=== PATIENT | female | born 1960 | race Two or more races ===

== ENCOUNTER 2018-09-18 12:20 | Emergency (ER) | payer MEDICAID, SELFPAY ==
[2018-09-18 12:22] VITALS: BP 121/81; PULSE 106; PULSE 107; RESP 18; RESP 20; TEMP 36.6; O2SAT 96; O2SAT 97; BMI 46.4
--- NOTE | 2018-09-18 12:33 | RAD_ITS ---
STUDY: X-RAY - UNILATERAL RIBS ( RIGHT ) WITH CHEST REASON FOR EXAM: Female, 58 years old. Right-sided rib pain. History of recent fall. TECHNIQUE - RIBS: 3 view(s) of the ribs. TECHNIQUE - CHEST: Single PA view of the chest. COMPARISON: None. FINDINGS - RIBS: Healed fractures of the right fourth fifth and sixth ribs. FINDINGS - CHEST: EKG electrodes are seen. The lungs are clear and expanded. There is no demonstrated pleural abnormality. Normal size heart. Normal mediastinum and valerie. Normal visualized pulmonary arteries. Normal visualized aortic arch and descending thoracic aorta. Normal visualized thoracic spine. Normal visualized ribs, clavicles, and shoulders. There is no demonstrated abnormality of the visualized soft tissue structures of the upper abdomen. RAD/Ribs Uni Min 3V w/PA Chest IMPRESSION: RIBS: Healed right-sided fractures. No acute fracture is seen. CHEST: Normal x-ray examination of the chest. Electronically Signed: Jaime Suazo, at 14:05 EDT , Service support ,
--- NOTE | 2018-09-18 12:34 | ED.VIS.GEN ---
History of Present Illness Chief Complaint: Hyperglycemia Detail of Chief Complaint: High blood sugar and rib pain Informant: Patient Onset: Today Current Severity: Moderate Maximum Severity: Moderate Narrative: Patient presents with primary concern of elevated blood sugar. She is a brittle diabetic and states that she noted last night that she was out of insulin needles. She missed her insulin dose last evening and this morning. Yesterday morning her blood sugar was in the 140s. Today her meter was reading high. Patient also complains of right rib pain for the past several weeks. She has had bilateral lower extremity amputations. She states a few weeks ago her family members were trying to get her into her brother's truck. They were able to get her onto the floor board but not up onto the seat. As they were trying to move her she injured her right lateral ribs. She was not seen after that injury. Past Medical History - Allergies and Home Meds Allergies/Adverse Reactions: Allergies No Known Allergies Allergy (Verified 09/18/18 12:21) Primary Care Physician: Shaina Claire MD [Primary Care Provider] - Prior records reviewed: Yes Past Medical History: - - Reviewed Smoking Status: Former smoker Review of Systems General: Denies: Chills, Fever Eyes: Denies: Visual changes - bilaterally ENT: Denies: Bilateral ear pain Cardiovascular: Reports: Chest pain - Right lateral rib pain Respiratory: Denies: Dyspnea, Cough Gastrointestinal: Denies: Abdominal pain, Nausea, Vomiting Genitourinary: Reports: Dysuria Musculoskeletal: Denies: Back pain Neurological: Denies: Headache Endocrine: Reports: Polydipsia Hematologic: Denies: Easy bruising Allergy: Denies: Uticaria Physical Exam Vital Signs/Narrative: Vital Signs Temp Pulse Resp BP Pulse Ox 09/18/18 12:22 97.9 F 106 H 18 121/81 H 97 Inital Vital Signs reviewed: Yes General: Well nourished, Well developed Head: Normocephalic ENT: Moist mucous membranes Neck: Supple Cardiovascular: Regular rate, Regular rhythm Respiratory: No distress, CTA bilaterally, Chest tenderness - Right lateral rib tenderness. No crepitus. Abdomen: Soft, Nontender Extremities: - - Bilateral lower extremity amputations. Skin: Normal color Neurological: Alert, Oriented x3 Psychological: Normal affect Diagnostic/Tx/Re-eval Impressions Ribs w/Chest X-Ray 09/18/18 12:33 IMPRESSION: RIBS: Healed right-sided fractures. No acute fracture is seen. CHEST: Normal x-ray examination of the chest. Electronically Signed: Jaime Suazo, at 14:05 EDT , Service support , 09/18/18 12:33 Ribs Uni Min 3V w/PA Chest [RAD] Stat Laboratory Results 09/18/18 09/18/18 09/18/18 13:13 13:13 13:13 WBC 7.3 RBC 3.93 L Hgb 11.3 L Hct 36.2 L MCV 92.1 MCH 28.8 MCHC 31.2 L RDW Std Deviation 45.0 H RDW Coeff of Tiffanie 13.4 Plt Count 284 MPV 10.3 Immature Gran % (Auto) 0.500 Neut % (Auto) 68.4 Lymph % (Auto) 21.3 [place] % (Auto) 7.9 Eos % (Auto) 1.6 Baso % (Auto) 0.3 Absolute Neuts (auto) 5.0 Absolute Lymphs (auto) 1.56 Nucleated RBC % 0 Sodium 138 Potassium 4.4 Chloride 108 H Carbon Dioxide 24.0 Anion Gap 6 BUN 29 H Creatinine 1.11 H Estim Creat Clear Calc 48.90 Est GFR (MDRD) Af Amer 65 Est GFR (MDRD) Non-Af 54 L BUN/Creatinine Ratio 26.1 H Glucose 494 H* Calcium 8.7 Urine Color Urine Clarity Urine pH Ur Specific [place] Urine Protein Urine Glucose (UA) Urine Ketones Urine Occult Blood Urine Nitrite Urine Bilirubin Urine Urobilinogen Ur Leukocyte Esterase Urine RBC Urine WBC Ur Squamous Epith Cells Urine Bacteria Urine Mucus Acetone Level NEGATIVE 09/18/18 14:40 WBC RBC Hgb Hct MCV MCH MCHC RDW Std Deviation RDW Coeff of Tiffanie Plt Count MPV Immature Gran % (Auto) Neut % (Auto) Lymph % (Auto) Bradford % (Auto) Eos % (Auto) Baso % (Auto) Absolute Neuts (auto) Absolute Lymphs (auto) Nucleated RBC % Sodium Potassium Chloride Carbon Dioxide Anion Gap BUN Creatinine Estim Creat Clear Calc Est GFR (MDRD) Af Amer Est GFR (MDRD) Non-Af BUN/Creatinine Ratio Glucose Calcium Urine Color Yellow Urine Clarity Clear Urine pH 5.0 Ur Specific [place] 1.010 Urine Protein Negative Urine Glucose (UA) 1000 H Urine Ketones Negative Urine Occult Blood 10 H Urine Nitrite Positive H Urine Bilirubin Negative Urine Urobilinogen Normal Ur Leukocyte Esterase 25 H Urine RBC 0-5 SEEN Urine WBC 0-5 SEEN Ur Squamous Epith Cells 0 SEEN Urine Bacteria 3+ Urine Mucus 0 SEEN Acetone Level - Medical Decision Making Patient was treated with [place] for pain and given IV fluids. Insulin has been ordered for her hyperglycemia. Urine will be sent for culture and she will be treated with a 3-day course of Bactrim. Patient is given prescriptions for Bactrim, [place], and insulin needles. Social work is assisting in getting his prescriptions filled here at the hospital before she is discharged. Patient is to follow-up with her primary care physician next week. ED Disposition - Plan for ED Patient: Disposition: Home or Assisted Living Diagnosis: Hyperglycemia, Contusion of rib on right side, Cystitis Instructions: ED Diabetic Hyperglycemia, Urinary Tract Infections in Women, Rib Contusion Prescriptions: Smz/Tmp Ds [Bactrim Ds] 1 tab PO BID #6 tab Prescription Printed Hydrocodone Bitart/Apap 5-325 [[place] 5MG-325MG] 1 tab PO Q6H PRN PRN 3 Days #10 tab PRN Reason: Pain Prescription Printed [place], Insulin Disposable [Novofine Autocover 30G Needle] 1 ea MISCELL. UD #1 box Prescription Printed Referrals: Shaina Claire MD [Primary Care Provider] - 1-2 Weeks
[2018-09-18] MEDS: HYDROcodone Bitartrate/Apap 5/325 Tablet PO (13:21)
[2018-09-18] MEDS: 0.9% Normal Saline 1,000 ML 150 ML IV (13:23)
[2018-09-18 13:29] LABS: Absolute Lymphocyte Count 1.56 X10^3/uL (0.83-4.51); Basophil# 0.02 X10^3/uL; Basophil% 0.3 % (0-1); Eosinophil# 0.12 X10^3/uL; Eosinophils% 1.6 % (0-5); Hematocrit 36.2 % (37-47); Hemoglobin 11.3 g/dL (12.0-15.0); Lymphocyte # 1.56 X10^3/ul (4.0); Lymphocyte % 21.3 % (19-41); Mean Corp Hgb Conc 31.2 g/dL (32-36); Mean Corpuscular Hgb 28.8 pg (27.0-32.0); Mean Corpuscular Volume 92.1 fL (81-99); Mean Platelet Vol. 10.3 fl (6.2-12.0); Monocyte# 0.58 X10^3/uL; Monocyte% 7.9 % (0-10); NRBC Flagged by Analyzer 0 % (0-5); Neutrophil % 68.4 % (47-70); Platelet Count 284 K/mm3 (150-450); RBC Distribution Width CV 13.4 % (11.6-14.6); Red Blood Count 3.93 M/mm3 (4.2-5.4); White Blood Count 7.3 K/mm3 (4.4-11.0)
[2018-09-18 13:38] LABS: Anion Gap 6 (5-15); BUN 29 mg/dL (7-18); BUN/Creat Ratio 26.1 RATIO (10-20); Calcium,Total 8.7 mg/dL (8.5-10.1); Chloride 108 mmol/L (98-107); Creatinine, Serum 1.11 mg/dL (0.55-1.02); EST Glomerular Filtration Rate 54 mL/min (>60); Est Glom Filt Rate - Afr Amer 65 mL/min (>60); Glucose 494 mg/dL (74-106); Potassium 4.4 mmol/L (3.5-5.1); Sodium Level 138 mmol/L (136-145)
[2018-09-18 14:43] LABS: Mucous, Urine 0 SEEN /hpf (<or=2+); Squamous Epithelial Cells - UA 0 SEEN /hpf (5-10)
[2018-09-18 14:44] LABS: Color, Urine Yellow (Yellow); Glucose, Dipstick 1000 mg/dl (Normal); Ketone-Dipstick Negative (Negative); Leukocyte Esterase-Dipstick 25 /ul (Negative); Nitrite-Dipstick Positive (Negative); Occult Blood-Urine 10 /ul (Negative); Protein-Dipstick Negative (Negative); Urine Bilirubin Dipstick Negative (Negative); Urine Clarity Clear (Clear); Urine Urobilinogen Normal (Normal)
[2018-09-18 14:55] LABS: Bacteria 3+ /hpf (None Seen); Red Blood Cells-Urine 0-5 SEEN /hpf (0-5); White Blood Cells 0-5 SEEN /hpf (0-5)
--- NOTE | 2018-09-18 15:27 | CM.ED ---
SOCIAL WORK INFORMANT: DR. JOVEL REASON FOR REFERRAL: ASSISTANCE WITH PRESCRIPTIONS MET WITH PATIENT IN ROOM. INTRODUCED ROLE AND REASON FOR REFERRAL. PATIENT STATES HAS BEEN HAVING ISSUES WITH TRANSPORTATION AND GETTING TO PHARMACY TO GET PRESCRIPTIONS. DISCUSSED GETTING PRESCRIPTIONS FILLED HERE PRIOR TO D/C. PATIENT IN AGREEMENT. PATIENT DENIES ANY FURTHER NEEDS. CALLED TO PHARMACY TO UPDATE. NURSING TO TUBE PRESCRIPTIONS TO PHARMACY. DR. JOVEL UPDATED. AMY ORO, [employer]YOR LOADER, BODY BUILDER.
[2018-09-18] MEDS: Insulin Lispro 100 UNIT/ML INSULN.PEN 12 UNIT SC (15:28)
[2018-09-18] MEDS: Smz/Tmp Ds Tablet 1 TABLET PO (15:28)
[2018-09-18 15:30] VITALS: BP 123/57; PULSE 96; RESP 14; O2SAT 96
[2018-09-18 15:41] LABS: Bedside Glucose 410 mg/dL (70-110)
[2018-09-18 16:51] LABS: Bedside Glucose 297 mg/dL (70-110)
== END 2018-09-18 17:09 | disposition home or self-care (01) ==
PROVIDERS: Emergency Provider Emergency Medicine; Family Provider Family Medicine; PCP Family Medicine
DX: R73.9 Hyperglycemia, unspecified (principal); E11.65 Type 2 diabetes mellitus with hyperglycemia; N30.90 Cystitis, unspecified without hematuria; S20.211A Contusion of right front wall of thorax, initial encounter; X58.XXXA Exposure to other specified factors, initial encounter; Y93.9 Activity, unspecified; Y92.812 Truck as the place of occurrence of the external cause; Y99.9 Unspecified external cause status; Z79.4 Long term (current) use of insulin; Z89.512 Acquired absence of left leg below knee; Z89.511 Acquired absence of right leg below knee; Z87.891 Personal history of nicotine dependence
CPT/HCPCS: 71101; 80048; 81001; 82009; 82962; 85025; 87077; 87086; 87088; 87186; 96360; 96361; 99285; J7030; A4216

== ENCOUNTER 2021-09-05 17:31 | Emergency (ER) | payer MEDICAID, SELFPAY ==
[2021-09-05 17:33] VITALS: BP 125/59; PULSE 82; RESP 14; TEMP 36.6; O2SAT 98; BMI 52.5
--- NOTE | 2021-09-05 17:57 | EDS_ITS ---
HPI History of Present Illness Chief Complaint: Other, Pain/Inj Informant: patient Narrative Narrative: 61-year-old female presenting to the emergency department with right stump pain. Patient has had AKA bilaterally. She states that she recently moved from [facility] her time to [place]. She states that the nurse practitioner that is now taking care of her has declined to prescribe her pain medication stating that she needs to go to pain management. Patient states that she has heard the pain management most likely will give her pain medicine. She states that she transfers by spinning on her stump. She wonders if she pulled the muscle away from the bone because it hurts from the end of the stump up into her hip. She denies any bleeding or bruising or leakage of fluid. She states that her caregivers are stupid. [facility] Medical History Amputation leg, bilat Diabetes High cholesterol HTN (hypertension) PVD (peripheral vascular disease) Home Medications amitriptyline 50 mg tablet 50 mg PO QHS 06/12/16 [History Last Taken Unknown] baclofen 10 mg tablet 10 mg PO DAILY 06/12/16 [History Last Taken Unknown] clopidogrel 75 mg tablet 75 mg PO DAILY 06/12/16 [History Last Taken Unknown] fluticasone propionate 50 mcg/actuation nasal spray,suspension 2 spray DAILY 06/12/16 [History Last Taken Unknown] lidocaine 5 % topical ointment 1 applicatio topical DAILY PRN PRN Pain 06/12/16 [History Last Taken Unknown] metoprolol tartrate 25 mg tablet 25 mg PO BID 06/12/16 [History Last Taken Unknown] omeprazole 20 mg capsule,delayed release 20 mg PO DAILY 06/12/16 [History Last Taken Unknown] polyethylene glycol 8000(bulk) 100 % powder 255 g miscellaneous BID PRN PRN Cons tipation 06/12/16 [History Last Taken Unknown] zolpidem 5 mg tablet 5 mg PO QHS PRN PRN Insomnia 06/12/16 [History Last Taken Unknown] aspirin 81 mg chewable tablet 81 mg PO DAILY@0800 06/14/16 [Rx Last Taken Unknown] atorvastatin 40 mg tablet 40 mg PO QHS ##30 06/14/16 [Rx Last Taken Unknown] insulin aspart U-100 100 unit/mL (3 mL) subcutaneous pen (Novolog Flexpen U-100 Insulin aspart) 10 units (0.1 mL) subcut TIDAC 30 days 06/14/16 [Rx Last Taken Unknown] insulin detemir U-100 100 unit/mL (3 mL) subcutaneous pen (Levemir FlexTouch U- 100 Insulin) 50 units (0.5 mL) subcut BID 30 days 06/14/16 [Rx Last Taken Unknown] lisinopril 5 mg tablet 5 mg PO DAILY ##30 06/14/16 [Rx Last Taken Unknown] pen needle, diabetic, safety 30 gauge x 1/3 ##1 09/18/18 [Rx Last Taken Unknown] sulfamethoxazole 800 mg-trimethoprim 160 mg tablet 1 tab PO BID #6 tabs 09/18/18 [Rx Last Taken Unknown] hydrocodone-acetaminophen 5-325mg 5mg-325mg 1 tab PO Q6H PRN PRN Pain 3 days #12 TABLETS 09/05/21 [Rx Last Taken Unknown] Allergy/AdvReac Type Severity Reaction Status Date / Time No Known Allergies Allergy Verified 09/05/21 17:36 Social History (Updated 09/05/21 @ 17:[address] Roman Lozano, DO) Smoking Status: Former smoker substance use type: does not use ROS ROS ED Constitutional Constitutional ED: Denies chills or weight loss Eyes Eyes: Denies change in vision or diplopia ENT ENT ED: Denies ear pain, rhinorrhea or sore throat Cardiovascular Cardiovascular: Denies chest pain, orthopnea, palpitations or racing heartbeat Respiratory/Chest Respiratory/Chest: Denies cough, dyspnea or orthopnea Gastrointestinal Gastrointestinal: Denies abdominal pain, diarrhea, nausea or vomiting Genitourinary Genitourinary ED: Denies dysuria, hematuria or urinary frequency Musculoskeletal Musculoskeletal: Reports other Details: See history of present illness ; Denies arthralgias or myalgias Integumentary Denies abscess or rash Neurologic Neurologic: Denies headache(s) or weakness Psychiatric Psychiatric: Denies anxiety, depression, suicidal ideation or suicidal thoughts Endocrine Endocrinology: Denies polydipsia, polyphagia or polyuria Allergic/Immunologic Allergic/Immunologic ED: Denies mouth swelling, tongue swelling or urticaria EXAM Physical Exam Const Vital Signs: 09/05/21 17:33 09/05/21 17:36 Temperature 98 F Temperature Source Temporal Pulse Rate 82 Respiratory Rate 14 Respiratory Pattern Normal Blood Pressure 125/59 H Blood Pressure Mean 81 Pulse Ox 98 Oxygen Delivery Method Room Air Positive well nourished and well developed General Appearance ED: well developed HEENT Reports normocephalic, head/scalp atraumatic and moist mucous membranes Eyes PERRL and EOMs intact bilaterally Neck no lymphadenopathy, supple and no JVD Resp normal respiratory effort and clear to auscultation bilaterally Cardio regular rate, regular rhythm and no murmurs GI normal to inspection, nondistended, normoactive bowel sounds and non-tender Palpation: soft Back/Spine no CVA tenderness and normal ROM Extremity Extremity Narrative: Well-healed surgical scars. There is no erythema there is no significant bruising. She is able to move the stump. There is no tenderness over the greater trochanter. General Extremety ED: Negative for edema General Extremity: Negative for edema Neuro oriented x3 and CN's II-XII intact bilaterally Sensorium / Orientation: alert Motor Exam: strength 5/5 throughout Psych mental status grossly normal Mood & Affect: Negative for depressed or tearful Skin no rashes or lesions noted and no wounds MDM MDM MDM Narrative Medical decision making narrative: My interpretation of the plain films of the right hip is no acute process. Think the patient has a strain and possibly injured the soft tissues of the stump while pivoting. I can write for short course of pain medication but any prolonged narcotic or pain medication use will need to come from her doctors or from pain management. Patient notes understanding of this. We talked about trying not to pivot on this using ice and just resting return if worsening or concerns Discharge Plan Triage Chief Complaint: Other, Pain/Inj ED Provider: Roman Lozano Dx/Rx/DC Orders Clinical Impression: Amputation stump pain, Right leg swelling Instructions: ED Muscle Strain, Extremity Prescriptions: New hydrocodone-acetaminophen [hydrocodone-acetaminophen] 1 TABLET tablet 1 tab PO Q6H PRN PRN (Reason: Pain) 3 Days Qty: 12 0RF No Action clopidogrel 75 MG tablet 75 mg PO DAILY amitriptyline 50 MG tablet 50 mg PO QHS baclofen 10 MG tablet 10 mg PO DAILY omeprazole 20 MG capsule 20 mg PO DAILY zolpidem 5 MG tablet 5 mg PO QHS PRN PRN (Reason: Insomnia) fluticasone propionate 1 SPRAY spray,suspension 2 spray NASAL DAILY metoprolol tartrate 25 MG tablet 25 mg PO BID polyethylene glycol 8000(bulk) 500 GM powder 255 g miscellaneous BID PRN PRN (Reason: Constipation) lidocaine 35 GM ointment 1 applicatio topical DAILY PRN PRN (Reason: Pain) atorvastatin 40 MG tablet 40 mg PO QHS Qty: 30 0RF aspirin 81 MG tablet,chewable 81 mg PO DAILY@0800 0RF lisinopril 5 MG tablet 5 mg PO DAILY Qty: 30 0RF insulin aspart U-100 [Novolog Flexpen U-100 Insulin] 100 UNITS/ML insulin pen 10 units subcut TIDAC 30 Days 0RF insulin detemir U-100 [Levemir FlexTouch U-100 Insuln] 100 UNITS/ML insulin pen 50 units subcut BID 30 Days 0RF (DME) pen needle, diabetic, safety 1 EACH needle 1 ea MISCELL. UD Qty: 1 0RF sulfamethoxazole-trimethoprim 1 TABLET tablet 1 tab PO BID Qty: 6 0RF Primary Care Provider: Care Physician,No Primary Referrals: Shaina Claire MD [NON-STAFF] - Disposition Disposition: Home, Self Care
[2021-09-05] MEDS: Ketorolac 30 MG/ML Syringe IM (18:04)
--- NOTE | 2021-09-05 18:10 | RAD_ITS ---
STUDY: X-RAY - PELVIS AND RIGHT HIP REASON FOR EXAM: Female, 61 years old. pain TECHNIQUE: 3 views of the pelvis and hip. COMPARISON: None. FINDINGS: There is a non-specific bowel gas pattern. Surgical clips are seen in the soft tissues of the right hip. Normal bilateral iliac wings, sacroiliac joints and visualized sacrum. Normal bilateral superior and inferior pubic rami. Normal pubic symphysis. Normal bilateral ischial tuberosities. Normal visualized femoral head. Normal acetabulum. Normal hip joint. Postop change status post amputation of the right thigh through the mid femoral shaft . There is soft tissue swelling of the stump but no definitive evidence for acute osteomyelitis RAD/HIP, UNI W/ Pelvis 2-3 Views IMPRESSION: Soft tissue swelling of the operative site status post post amputation of the right thigh through the mid femoral shaft without definitive evidence for acute osteomyelitis Electronically Signed: Pedro Hernandez MD at 19:11 EDT ,
--- NOTE | 2021-09-05 19:12 | ED.RN ---
2 attempts to call report [phone]
[2021-09-05 19:15] VITALS: BP 138/66; PULSE 78; RESP 16; O2SAT 98
--- NOTE | 2021-09-05 19:59 | CM.ED ---
BROOKE met with patient. She indicated her PCP is the [facility] at [facility] but she does not know her name. Aisha Sewell
== END 2021-09-05 21:09 | disposition home or self-care (01) ==
PROVIDERS: Emergency Provider Emergency Medicine; Visit Provider Emergency Medicine
DX: T87.89 Other complications of amputation stump (principal); E11.9 Type 2 diabetes mellitus without complications; Y83.5 Amputation of limb(s) as the cause of abnormal reaction of the patient, or of later complication, without mention of misadventure at the time of the procedure; I10 Essential (primary) hypertension; E78.00 Pure hypercholesterolemia, unspecified; M79.89 Other specified soft tissue disorders; Z79.02 Long term (current) use of antithrombotics/antiplatelets; Z79.4 Long term (current) use of insulin; Z79.82 Long term (current) use of aspirin; Z87.891 Personal history of nicotine dependence; Z89.611 Acquired absence of right leg above knee; Z89.612 Acquired absence of left leg above knee
CPT/HCPCS: 73502; 96372; 99284

== ENCOUNTER 2021-09-11 14:26 | Emergency (ER) | payer MEDICAID, SELFPAY ==
[2021-09-11 14:28] VITALS: BP 138/71; PULSE 85; RESP 16; TEMP 37.3; O2SAT 98; BMI 21.2
--- NOTE | 2021-09-11 14:39 | RAD_ITS ---
STUDY: X-RAY - UNILATERAL RIBS ( RIGHT ) WITH CHEST REASON FOR EXAM: Female, 61 years old. pain TECHNIQUE - RIBS: 4 view(s) of the ribs. TECHNIQUE - CHEST: AP COMPARISON: None. FINDINGS - RIBS: There appear to be multiple old right rib fractures. No evidence for acute fracture this time. FINDINGS - CHEST: The lungs are clear and expanded. There is no demonstrated pleural abnormality. Normal size heart. Normal mediastinum and valerie. Normal visualized pulmonary arteries. Normal visualized aortic arch and descending thoracic aorta. Normal visualized thoracic spine. Normal visualized clavicles, and shoulders. There is no demonstrated abnormality of the visualized soft tissue structures of the upper abdomen. RAD/Ribs Uni Min 3V w/PA Chest IMPRESSION: RIBS: Multiple old rib fractures without evidence for acute fracture CHEST: No acute cardiopulmonary pathology Electronically Signed: Pedro Hernandez MD at 17:02 EDT ,
--- NOTE | 2021-09-11 14:39 | RAD_ITS ---
STUDY: X-RAY - RIGHT SHOULDER REASON FOR EXAM: Female, 61 years old. pain TECHNIQUE: 4 view(s) of the shoulder. COMPARISON: None. FINDINGS: Normal glenohumeral articulation. Normal acromioclavicular joint. Normal acromion. Normal humeral head and visualized proximal humerus. The soft tissue structures are unremarkable. Normal visualized pulmonary apex. RAD/Shoulder min 2 Views IMPRESSION: Normal x-ray examination of the shoulder. Electronically Signed: Abdelrahman Doan MD at 17:08 EDT ,
[2021-09-11] MEDS: oxyCODONE 5 MG Tablet PO (14:48)
--- NOTE | 2021-09-11 14:52 | ED.VIS.FALL ---
HPI HPI - Fall History of Present Illness Chief Complaint: Fall Narrative Narrative: 61-year-old female with history of bilateral AKA presenting after a fall. She states it was purely mechanical. She states she has a new bed and when trying to pivot off of her wheelchair she was not able to put her stump down correctly into the corner and she fell into inside of the wheelchair she was pivoting from. She states she hurt her right shoulder her right ribs and her right hip. She did not hit her head or lose consciousness. She states that prior to that she was otherwise well. She states that they are trying to get a trapeze to help her get up in the bed but this has not been ordered for her yet. Patient also states that she has chronic pain which is not being addressed at her assisted living facility. She states she supposed to follow-up with pain management but they have not been able to get her to an appointment. [facility] Medical History Amputation leg, bilat Diabetes High cholesterol HTN (hypertension) PVD (peripheral vascular disease) Home Medications amitriptyline 50 mg tablet 50 mg PO QHS 06/12/16 [History Last Taken Unknown] baclofen 10 mg tablet 10 mg PO DAILY 06/12/16 [History Last Taken Unknown] clopidogrel 75 mg tablet 75 mg PO DAILY 06/12/16 [History Last Taken Unknown] fluticasone propionate 50 mcg/actuation nasal spray,suspension 2 spray DAILY 06/12/16 [History Last Taken Unknown] lidocaine 5 % topical ointment 1 applicatio topical DAILY PRN PRN Pain 06/12/16 [History Last Taken Unknown] metoprolol tartrate 25 mg tablet 25 mg PO BID 06/12/16 [History Last Taken Unknown] omeprazole 20 mg capsule,delayed release 20 mg PO DAILY 06/12/16 [History Last Taken Unknown] polyethylene glycol 8000(bulk) 100 % powder 255 g miscellaneous BID PRN PRN Constipation 06/12/16 [History Last Taken Unknown] zolpidem 5 mg tablet 5 mg PO QHS PRN PRN Insomnia 06/12/16 [History Last Taken Unknown] aspirin 81 mg chewable tablet 81 mg PO DAILY@0800 06/14/16 [Rx Last Taken Unknown] atorvastatin 40 mg tablet 40 mg PO QHS ##30 06/14/16 [Rx Last Taken Unknown] insulin aspart U-100 100 unit/mL (3 mL) subcutaneous pen (Novolog Flexpen U-100 Insulin aspart) 10 units (0.1 mL) subcut TIDAC 30 days 06/14/16 [Rx Last Taken Unknown] insulin detemir U-100 100 unit/mL (3 mL) subcutaneous pen (Levemir FlexTouch U-100 Insulin) 50 units (0.5 mL) subcut BID 30 days 06/14/16 [Rx Last Taken Unknown] lisinopril 5 mg tablet 5 mg PO DAILY ##30 06/14/16 [Rx Last Taken Unknown] pen needle, diabetic, safety 30 gauge x 1/3 ##1 09/18/18 [Rx Last Taken Unknown] sulfamethoxazole 800 mg-trimethoprim 160 mg tablet 1 tab PO BID #6 tabs 09/18/18 [Rx Last Taken Unknown] hydrocodone-acetaminophen 5-325mg 5mg-325mg 1 tab PO Q6H PRN PRN Pain 3 days #12 TABLETS 09/05/21 [Rx Last Taken Unknown] Allergy/AdvReac Type Severity Reaction Status Date / Time No Known Allergies Allergy Verified 09/11/21 14:27 Social History Smoking Status: Former smoker substance use type: does not use ROS ROS ED Constitutional Constitutional ED: Denies chills or fever(s) Eyes Eyes: Denies blurry vision or change in vision ENT ENT ED: Denies rhinorrhea or sore throat Cardiovascular Cardiovascular: Reports other Details: Right-sided rib pain ; Denies chest pain or palpitations Respiratory/Chest Respiratory/Chest: Denies cough or dyspnea Gastrointestinal Gastrointestinal: Denies abdominal pain or constipation Genitourinary Genitourinary ED: Denies dysuria or hematuria Musculoskeletal Musculoskeletal: Reports other Details: Right shoulder, right hip pain Integumentary Denies abscess or Abrasions Neurologic Neurologic: Denies headache(s) or paresthesias Psychiatric Psychiatric: Denies anxiety or depression EXAM Physical Exam Const Vital Signs: 09/11/21 14:28 Temperature 99.1 F Temperature Source Oral Pulse Rate 85 Respiratory Rate 16 Blood Pressure 138/71 H Blood Pressure Mean 93 Pulse Ox 98 Oxygen Delivery Method Room Air Positive well nourished General Appearance ED: NAD HEENT Reports normocephalic Eyes PERRL and EOMs intact bilaterally Chest Wall Chest Narrative: Tenderness to palpation to the right ribs in the midaxillary line. No crepitance, deformity. Equal symmetric breath sounds or chest wall rise. Cardio regular rate and regular rhythm GI non-tender Back/Spine Back/Spine Narrative: No midline lumbar spinal tenderness, deformity, step-off. Right hip: There is tenderness over the right hip and the patient is actively able to range this. No bruising. Right shoulder: Tenderness palpation over the right deltoid, however the patient is able to abduct, adduct, flex and extend the shoulder without much difficulty. No tenderness over the clavicle. Neuro oriented x3 and CN's II-XII intact bilaterally Sensorium / Orientation: alert Psych mental status grossly normal Skin Lesions: no lesions Rashes: no rashes MDM MDM MDM Narrative Medical decision making narrative: Patient presenting after mechanical fall into her wheelchair. She has pain in the right proximal thigh/hip. She also has pain in the right ribs and in the right shoulder. There are no obvious bony deformities in either location. Patient maintains full range of motion of the right shoulder. She has some tenderness palpation of the right ribs without bruising, crepitance. Physical symmetric breath sounds or chest wall rise. Patient was given oxycodone for pain. X-rays of the right shoulder, right hip, right rib series with PA chest are all interpreted myself as negative for acute findings.. The radiologist does agree. Review of her previous visit on the patient was started on [place] 06/14/2024. She was placed on 600 mg of gabapentin prior to this by her nurse practitioner. Apparently her nurse practitioner does not to start her on narcotics from the facility. She is being referred to pain management. Given this and her negative x-rays I will discharge her home to follow-up with her nurse practitioner and pain management. Impression: 1. Mechanical fall 2. Right shoulder contusion 3. Right rib contusion 4. Right hip contusion Lab Data Attestation: I reviewed the patient's lab results. Discharge Plan Triage Chief Complaint: Fall ED Provider: Adithya Huntley Dx/Rx/DC Orders Instructions: ED Contusion, Upper Extremity, ED Hip Contusion, ED Contusion, Rib, ED Fall Prevention Prescriptions: No Action clopidogrel 75 MG tablet 75 mg PO DAILY amitriptyline 50 MG tablet 50 mg PO QHS baclofen 10 MG tablet 10 mg PO DAILY omeprazole 20 MG capsule 20 mg PO DAILY zolpidem 5 MG tablet 5 mg PO QHS PRN PRN (Reason: Insomnia) fluticasone propionate 1 SPRAY spray,suspension 2 spray NASAL DAILY metoprolol tartrate 25 MG tablet 25 mg PO BID polyethylene glycol 8000(bulk) 500 GM powder 255 g miscellaneous BID PRN PRN (Reason: Constipation) lidocaine 35 GM ointment 1 applicatio topical DAILY PRN PRN (Reason: Pain) atorvastatin 40 MG tablet 40 mg PO QHS Qty: 30 0RF aspirin 81 MG tablet,chewable 81 mg PO DAILY@0800 0RF lisinopril 5 MG tablet 5 mg PO DAILY Qty: 30 0RF insulin aspart U-100 [Novolog Flexpen U-100 Insulin] 100 UNITS/ML insulin pen 10 units subcut TIDAC 30 Days 0RF insulin detemir U-100 [Levemir FlexTouch U-100 Insuln] 100 UNITS/ML insulin pen 50 units subcut BID 30 Days 0RF (DME) pen needle, diabetic, safety 1 EACH needle 1 ea MISCELL. UD Qty: 1 0RF sulfamethoxazole-trimethoprim 1 TABLET tablet 1 tab PO BID Qty: 6 0RF hydrocodone-acetaminophen [hydrocodone-acetaminophen] 1 TABLET tablet 1 tab PO Q6H PRN PRN (Reason: Pain) 3 Days Qty: 12 0RF Primary Care Provider: Care Physician,No Primary Referrals: Care Physician,No Primary [Primary Care Provider] - Chloé Mehta TOBACCO WRAPPING MACHINE TENDER, TOBACCO WRAPPING MACHINE TENDER-C [NON-STAFF] - As soon as possible Disposition Disposition: Home, Self Care
--- NOTE | 2021-09-11 15:15 | RAD_ITS ---
STUDY: X-RAY - PELVIS AND RIGHT HIP REASON FOR EXAM: Female, 61 years old. pain TECHNIQUE: 3 views of the pelvis and hip. COMPARISON: None. FINDINGS: There is a non-specific bowel gas pattern. Aortic and bilateral common iliac stents are noted. Normal bilateral iliac wings, sacroiliac joints and visualized sacrum. Normal bilateral superior and inferior pubic rami. Normal pubic symphysis. Normal bilateral ischial tuberosities. Postsurgical changes status post amputation of the left hip Normal visualized femoral head. Mild acetabular spurring.. Normal hip joint. There are surgical clips noted in the right groin. Status post amputation of the right leg through the mid femoral shaft. RAD/HIP, UNI W/ Pelvis 2-3 Views IMPRESSION: Postsurgical and degenerative changes of the right hip. No evidence for acute fracture Other findings as above Electronically Signed: Pedro Hernandez MD at 16:59 EDT ,
[2021-09-11 17:16] VITALS: BP 138/68; PULSE 77; RESP 18; TEMP 36.6; O2SAT 98
--- NOTE | 2021-09-11 17:17 | NURSING ---
CALLED [facility], ETA IS WITHIN THE HOUR
--- NOTE | 2021-09-11 17:19 | ED.RN ---
THIS RN CALLED ALEXANDER GALLOWAY, INFORMED OF PT BEING D/C. AWAITING RIDE HOME. NURSE VERBALIZES UNDERSTANDING. DENIES ANY FURTHER QUESTIONS.
== END 2021-09-11 18:59 | disposition home or self-care (01) ==
PROVIDERS: Emergency Provider Student in an Organized Health Care Education/Training Program; Visit Provider Student in an Organized Health Care Education/Training Program
DX: S40.011A Contusion of right shoulder, initial encounter (principal); E11.51 Type 2 diabetes mellitus with diabetic peripheral angiopathy without gangrene; Z89.612 Acquired absence of left leg above knee; Z89.611 Acquired absence of right leg above knee; Z79.4 Long term (current) use of insulin; S70.01XA Contusion of right hip, initial encounter; S20.211A Contusion of right front wall of thorax, initial encounter; G89.29 Other chronic pain; I10 Essential (primary) hypertension; E78.00 Pure hypercholesterolemia, unspecified; W19.XXXA Unspecified fall, initial encounter; Z79.02 Long term (current) use of antithrombotics/antiplatelets; Z79.82 Long term (current) use of aspirin; Z87.891 Personal history of nicotine dependence
CPT/HCPCS: 71101; 73030; 73502; 99283

== ENCOUNTER 2021-12-29 15:21 | Emergency (ER) | payer MEDICAID, SELFPAY ==
[2021-12-29 15:22] VITALS: BP 141/67; PULSE 72; RESP 16; TEMP 36.6; O2SAT 98; BMI 20.3
--- NOTE | 2021-12-29 16:03 | EX.ED.VIS.PS ---
HPI HPI - Psych History of Present Illness Chief Complaint: Depression Narrative Narrative: Patient presents from assisted living via EMS with depression. She has past medical history of diabetes and bilateral leg amputations. She states that she has intermittently thought of suicide and that she would take sleeping pills, but admittedly does not have any. She has been having increasing depressive type symptoms over the last few weeks to months. She states she has told her nurse practitioner that she is depressed but is currently not taking any medications for it reportedly. She states that its becoming Christmastime and that usually makes her sad. [facility] Medical History Amputation leg, bilat Diabetes High cholesterol HTN (hypertension) PVD (peripheral vascular disease) Home Medications amitriptyline 50 mg tablet 50 mg PO QHS 06/12/16 [History Last Taken Unknown] baclofen 10 mg tablet 10 mg PO DAILY 06/12/16 [History Last Taken Unknown] clopidogrel 75 mg tablet 75 mg PO DAILY 06/12/16 [History Last Taken Unknown] fluticasone propionate 50 mcg/actuation nasal spray,suspension 2 spray DAILY 06/12/16 [History Last Taken Unknown] lidocaine 5 % topical ointment 1 applicatio topical DAILY PRN PRN Pain 06/12/16 [History Last Taken Unknown] metoprolol tartrate 25 mg tablet 25 mg PO BID 06/12/16 [History Last Taken Unknown] omeprazole 20 mg capsule,delayed release 20 mg PO DAILY 06/12/16 [History Last Taken Unknown] polyethylene glycol 8000(bulk) 100 % powder 255 g miscellaneous BID PRN PRN Constipation 06/12/16 [History Last Taken Unknown] zolpidem 5 mg tablet 5 mg PO QHS PRN PRN Insomnia 06/12/16 [History Last Taken Unknown] aspirin 81 mg chewable tablet 81 mg PO DAILY@0800 06/14/16 [Rx Last Taken Unknown] atorvastatin 40 mg tablet 40 mg PO QHS ##30 06/14/16 [Rx Last Taken Unknown] insulin aspart U-100 100 unit/mL (3 mL) subcutaneous pen (Novolog Flexpen U-100 Insulin aspart) 10 units (0.1 mL) subcut TIDAC 30 days 06/14/16 [Rx Last Taken Unknown] insulin detemir U-100 100 unit/mL (3 mL) subcutaneous pen (Levemir FlexTouch U-100 Insulin) 50 units (0.5 mL) subcut BID 30 days 06/14/16 [Rx Last Taken Unknown] lisinopril 5 mg tablet 5 mg PO DAILY ##30 06/14/16 [Rx Last Taken Unknown] pen needle, diabetic, safety 30 gauge x 1/3 ##1 09/18/18 [Rx Last Taken Unknown] sulfamethoxazole 800 mg-trimethoprim 160 mg tablet 1 tab PO BID #6 tabs 09/18/18 [Rx Last Taken Unknown] hydrocodone-acetaminophen 5-325mg 5mg-325mg 1 tab PO Q6H PRN PRN Pain 3 days #12 TABLETS 09/05/21 [Rx Last Taken Unknown] Allergy/AdvReac Type Severity Reaction Status Date / Time No Known Allergies Allergy Verified 09/11/21 14:27 Social History Smoking Status: Former smoker substance use type: does not use EXAM Physical Exam Const Vital Signs: 12/29/21 15:22 Temperature 97.8 F Temperature Source Temporal Pulse Rate 72 Respiratory Rate 16 Blood Pressure 141/67 H Blood Pressure Mean 91 Pulse Ox 98 Oxygen Delivery Method Room Air MDM MDM MDM Narrative Medical decision making narrative: Medical screening labs were obtained. She has normal white count of 10.8, hemoglobin stable at 12.6, platelet count normal at 328. Electrolyte panel shows chloride slightly elevated at 108, anion gap low at 4 with a BUN of 35, normal creatinine of 0.8. Glucose is appropriately elevated at 214. Urine for drugs of abuse positive for cannabinoids. Ethyl alcohol is negative. At this point in time, I do feel she is medically cleared for evaluation by case management for her depression and intermittent suicidal ideation. Patient is in stable condition. After evaluation, it was not felt that she needed placement. She is having depressive type symptoms, but is able to contract for safety with them. She will follow-up with an outpatient psychiatrist. Disposition is discharged home in stable condition. Lab Data Attestation: I reviewed the patient's lab results. Labs: Laboratory Results - last 24 hr 12/29/21 12/29/21 12/29/21 16:25 16:54 16:54 WBC 10.8 RBC 4.18 L Hgb 12.6 Hct 40.4 MCV 96.7 MCH 30.1 MCHC 31.2 L RDW Std Deviation 47.4 H RDW Coeff of Tiffanie 13.6 Plt Count 328 MPV 10.2 Immature Gran % (Auto) 0.500 Neut % (Auto) 73.5 H Lymph % (Auto) 18.6 L [place] % (Auto) 6.5 Eos % (Auto) 0.5 Baso % (Auto) 0.4 Absolute Neuts (auto) 7.9 H Absolute Lymphs (auto) 2.01 Nucleated RBC % 0 Sodium 140 Potassium 4.5 Chloride 108 H Carbon Dioxide 28.0 Anion Gap 4 L BUN 35 H Creatinine 0.80 Estim Creat Clear Calc 63.40 Est GFR (MDRD) Af Amer 95 Est GFR (MDRD) Non-Af 78 BUN/Creatinine Ratio 44.0 H Glucose 214 H Calcium 9.4 Urine Opiates Screen NEGATIVE Urine Methadone Screen NEGATIVE Ur Barbiturates Screen NEGATIVE Ur Phencyclidine Scrn NEGATIVE Ur Amphetamines Screen NEGATIVE MDMA (Ecstasy) Screen NEGATIVE U Benzodiazepines Scrn NEGATIVE Urine Cocaine Screen NEGATIVE U Cannabinoids Screen POSITIVE H Ur Drug Screen Comment Ethyl Alcohol 12/29/21 16:54 WBC RBC Hgb Hct MCV MCH MCHC RDW Std Deviation RDW Coeff of Tiffanie Plt Count MPV Immature Gran % (Auto) Neut % (Auto) Lymph % (Auto) [place] % (Auto) Eos % (Auto) Baso % (Auto) Absolute Neuts (auto) Absolute Lymphs (auto) Nucleated RBC % Sodium Potassium Chloride Carbon Dioxide Anion Gap BUN Creatinine Estim Creat Clear Calc Est GFR (MDRD) Af Amer Est GFR (MDRD) Non-Af BUN/Creatinine Ratio Glucose Calcium Urine Opiates Screen Urine Methadone Screen Ur Barbiturates Screen Ur Phencyclidine Scrn Ur Amphetamines Screen MDMA (Ecstasy) Screen U Benzodiazepines Scrn Urine Cocaine Screen U Cannabinoids Screen Ur Drug Screen Comment Ethyl Alcohol < 3.0 Discharge Plan Triage Chief Complaint: Depression ED Provider: Epi Goins Dx/Rx/DC Orders Clinical Impression: Depression, Suicidal thoughts Instructions: ED Depression Prescriptions: No Action clopidogrel 75 MG tablet 75 mg PO DAILY amitriptyline 50 MG tablet 50 mg PO QHS baclofen 10 MG tablet 10 mg PO DAILY omeprazole 20 MG capsule 20 mg PO DAILY zolpidem 5 MG tablet 5 mg PO QHS PRN PRN (Reason: Insomnia) fluticasone propionate 1 SPRAY spray,suspension 2 spray NASAL DAILY metoprolol tartrate 25 MG tablet 25 mg PO BID polyethylene glycol 8000(bulk) 500 GM powder 255 g miscellaneous BID PRN PRN (Reason: Constipation) lidocaine 35 GM ointment 1 applicatio topical DAILY PRN PRN (Reason: Pain) atorvastatin 40 MG tablet 40 mg PO QHS Qty: 30 0RF aspirin 81 MG tablet,chewable 81 mg PO DAILY@0800 0RF lisinopril 5 MG tablet 5 mg PO DAILY Qty: 30 0RF insulin aspart U-100 [Novolog Flexpen U-100 Insulin] 100 UNITS/ML insulin pen 10 units subcut TIDAC 30 Days 0RF insulin detemir U-100 [Levemir FlexTouch U-100 Insuln] 100 UNITS/ML insulin pen 50 units subcut BID 30 Days 0RF (DME) pen needle, diabetic, safety 1 EACH needle 1 ea MISCELL. UD Qty: 1 0RF sulfamethoxazole-trimethoprim 1 TABLET tablet 1 tab PO BID Qty: 6 0RF hydrocodone-acetaminophen [hydrocodone-acetaminophen] 1 TABLET tablet 1 tab PO Q6H PRN PRN (Reason: Pain) 3 Days Qty: 12 0RF Primary Care Provider: Care Physician,No Primary Referrals: Care Physician,No Primary [Primary Care Provider] - Activity Restrictions/Additional Instructions: Follow-up with psychiatry as soon as possible. Disposition Disposition: Home, Self Care
[2021-12-29 16:42] LABS: Amphetamine Urine VISTA NEGATIVE (<1000 ng/mL); Barbiturate Urine VISTA NEGATIVE (< 200 ng/mL); Benzodiazepine Urine VISTA NEGATIVE (< 200 ng/mL); Cocaine Urine VISTA NEGATIVE (< 300 ng/mL); Ecstacy Urine VISTA NEGATIVE (< 500 ng/mL); Methadone Urine VISTA NEGATIVE (< 300 ng/mL); PCP Urine VISTA NEGATIVE (< 25 ng/mL); THC Urine VISTA POSITIVE (< 50 ng/mL); Vista UDS pH Range 6
[2021-12-29 17:04] LABS: Absolute Lymphocyte Count 2.01 X10^3/uL (0.83-4.51); Absolute Neutrophil Count 7.9 X10^3/uL (2.0-7.7); Basophil# 0.04 X10^3/uL; Basophil% 0.4 % (0-1); Eosinophil# 0.05 X10^3/uL; Eosinophils% 0.5 % (0-5); Hematocrit 40.4 % (37-47); Hemoglobin 12.6 g/dL (12.0-15.0); Lymphocyte # 2.01 X10^3/ul (0.83-4.51); Lymphocyte % 18.6 % (19-41); Mean Corp Hgb Conc 31.2 g/dL (32-36); Mean Corpuscular Hgb 30.1 pg (27.0-32.0); Mean Corpuscular Volume 96.7 fL (81-99); Mean Platelet Vol. 10.2 fl (6.2-12.0); Monocyte% 6.5 % (0-10); NRBC Flagged by Analyzer 0 % (0-5); Neutrophil # 7.93 X10^3/uL (2.7-7.7); Neutrophil % 73.5 % (47-70); Platelet Count 328 K/mm3 (150-450); RBC Distribution Width CV 13.6 % (11.6-14.6); RBC Distribution Width SD 47.4 fl (35.1-43.9); Red Blood Count 4.18 M/mm3 (4.2-5.4); White Blood Count 10.8 K/mm3 (4.4-11.0)
[2021-12-29 17:18] LABS: Anion Gap 4 (5-15); BUN 35 mg/dL (7-18); Calcium,Total 9.4 mg/dL (8.5-10.1); Chloride 108 mmol/L (98-107); EST Glomerular Filtration Rate 78 mL/min (>60); Est Glom Filt Rate - Afr Amer 95 mL/min (>60); Glucose 214 mg/dL (74-106); Potassium 4.5 mmol/L (3.5-5.1); Sodium Level 140 mmol/L (136-145)
[2021-12-29 17:22] VITALS: BP 138/84
[2021-12-29 17:26] LABS: Alcohol, Blood (Medical)-Serum < 3.0 mg/dL
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
[2021-12-29 19:22] VITALS: BP 126/82
[2021-12-29 21:14] VITALS: RESP 16
[2021-12-29 21:31] LABS: Bedside Glucose 253 mg/dL (74-106)
== END 2021-12-29 21:32 | disposition home or self-care (01) ==
PROVIDERS: Emergency Provider Emergency Medicine; Visit Provider Emergency Medicine
DX: F32.A Depression, unspecified (principal); E11.51 Type 2 diabetes mellitus with diabetic peripheral angiopathy without gangrene; Z89.611 Acquired absence of right leg above knee; Z89.612 Acquired absence of left leg above knee; Z79.4 Long term (current) use of insulin; R45.851 Suicidal ideations; E78.00 Pure hypercholesterolemia, unspecified; I10 Essential (primary) hypertension; Z87.891 Personal history of nicotine dependence; Z79.899 Other long term (current) drug therapy; Z79.82 Long term (current) use of aspirin
CPT/HCPCS: 80048; 80307; 82077; 82962; 85025; 87811; 99284; J7030; A4216

== ENCOUNTER 2022-04-24 01:16 | Inpatient (IN) | payer MEDICAID, SELFPAY ==
[2022-04-24] VITALS (14 sets, daily range): BP systolic 56–160; BP diastolic 24–83; PULSE 60–99; RESP 15–30; TEMP 36.4–37.1; O2SAT 93–100; BMI 20.4; BMI 49.1
--- NOTE | 2022-04-24 01:37 | RAD_ITS ---
INDICATION: hypotension EXAMINATION/TECHNIQUE: X-RAY - XR Chest 1 View COMPARISON: 09/11/2021 FINDINGS: LINES/DEVICES: None. LUNGS: No consolidation, edema or effusion. No pneumothorax. MEDIASTINUM AND CARDIOVASCULAR STRUCTURES: Cardiac silhouette not enlarged. Central airways and mediastinal contour are unremarkable. BONES AND SOFT TISSUES: Unremarkable. RAD/Chest 1 View (Portable) IMPRESSION: No acute cardiopulmonary disease. Electronically Signed: Alan Irby MD at 3:31 EDT ,
--- NOTE | 2022-04-24 01:37 | EKG12_ITS ---
Test Reason : DIARHHEA Blood Pressure : / mmHG Vent. Rate : 061 BPM Atrial Rate : 061 BPM P-R Int : 168 ms QRS Dur : 086 ms QT Int : 456 ms P-R-T Axes : 045 022 054 degrees QTc Int : 459 ms Normal sinus rhythm Normal ECG Confirmed by MISBAH BECKFORD, ALEC ([id number]), story editor MAKENNA ROMERO ([id number]) on 04/26/2022 9:53:27 AM Referred By: Confirmed By:ALEC CRAWLEY MD
--- NOTE | 2022-04-24 01:40 | ED.VIS.GI ---
HPI HPI - GI History of Present Illness Chief Complaint: Diarrhea Informant: patient Narrative Narrative: Presents by EMS from [facility] patient reports a few days of diarrhea to 3 times a day nonbloody. Nausea without emesis. Denies fevers. Denies recent antibiotics. History of bilateral lower extremity amputations disabled. She has had C. difficile in the past from report. History of diabetes peripheral vascular disease. Denies any heart failure history. [facility] Medical History (Updated 04/24/22 @ 04:[address] Hernandez Lynch DO) Anxiety and depression Coronary artery disease Diabetes mellitus, type 2 Diabetic nephropathy Diabetic neuropathy Diabetic retinopathy Former smoker High cholesterol HTN (hypertension) PAD (peripheral artery disease) PVD (peripheral vascular disease) Home Medications amitriptyline 50 mg tablet 50 mg PO QHS 06/12/16 [History Last Taken Unknown] baclofen 10 mg tablet 10 mg PO DAILY 06/12/16 [History Last Taken Unknown] clopidogrel 75 mg tablet 75 mg PO DAILY 06/12/16 [History Last Taken Unknown] fluticasone propionate 50 mcg/actuation nasal spray,suspension 2 spray DAILY 06/12/16 [History Last Taken Unknown] lidocaine 5 % topical ointment 1 applicatio topical DAILY PRN PRN Pain 06/12/16 [History Last Taken Unknown] metoprolol tartrate 25 mg tablet 25 mg PO BID 06/12/16 [History Last Taken Unknown] omeprazole 20 mg capsule,delayed release 20 mg PO DAILY 06/12/16 [History Last Taken Unknown] polyethylene glycol 8000(bulk) 100 % powder 255 g miscellaneous BID PRN PRN Constipation 06/12/16 [History Last Taken Unknown] zolpidem 5 mg tablet 5 mg PO QHS PRN PRN Insomnia 06/12/16 [History Last Taken Unknown] aspirin 81 mg chewable tablet 81 mg PO DAILY@0800 06/14/16 [Rx Last Taken Unknown] atorvastatin 40 mg tablet 40 mg PO QHS ##30 06/14/16 [Rx Last Taken Unknown] insulin aspart U-100 100 unit/mL (3 mL) subcutaneous pen (Novolog FlexPen U-100 Insulin aspart) 10 units (0.1 mL) subcut TIDAC 30 days 06/14/16 [Rx Last Taken Unknown] insulin detemir U-100 100 unit/mL (3 mL) subcutaneous pen (Levemir FlexTouch U-100 Insulin) 50 units (0.5 mL) subcut BID 30 days 06/14/16 [Rx Last Taken Unknown] lisinopril 5 mg tablet 5 mg PO DAILY ##30 06/14/16 [Rx Last Taken Unknown] pen needle, diabetic, safety 30 gauge x 1/3 ##1 09/18/18 [Rx Last Taken Unknown] sulfamethoxazole 800 mg-trimethoprim 160 mg tablet 1 tab PO BID #6 tabs 09/18/18 [Rx Last Taken Unknown] hydrocodone-acetaminophen 5-325mg 5mg-325mg 1 tab PO Q6H PRN PRN Pain 3 days #12 TABLETS 09/05/21 [Rx Last Taken Unknown] Allergy/AdvReac Type Severity Reaction Status Date / Time No Known Allergies Allergy Verified 04/24/22 01:19 Family History (Updated 04/24/22 @ 04:[address] Marce Ybarra MD) Mother Hypertension HLD (hyperlipidemia) Surgical History (Updated 04/24/22 @ 04:[address] Marce Ybarra MD) History of foot surgery History of surgery on lower extremity History of tonsillectomy and adenoidectomy S/P AKA (above knee amputation) bilateral S/P peripheral artery angioplasty Social History (Updated 04/24/22 @ 04:[address] Marce Ybarra MD) housing: assisted living facility Smoking Status: Former smoker how long ago did patient quit smoking: Quit remotely 20 years prior, smoked ~ 1 ppd until quit. alcohol intake: never substance use type: does not use ROS ROS ED Constitutional Constitutional ED: Denies chills, fever(s) or sweats Eyes Eyes: Denies change in vision ENT ENT ED: Denies dysphagia or sore throat Cardiovascular Cardiovascular: Denies chest pain, leg edema, palpitations or racing heartbeat Respiratory/Chest Respiratory/Chest: Denies cough, dyspnea or dyspnea on exertion Gastrointestinal Gastrointestinal: Reports diarrhea and nausea; Denies abdominal pain or vomiting Genitourinary Genitourinary ED: Denies dysuria, hematuria or urinary frequency Musculoskeletal Musculoskeletal: Denies back pain, extremity pain or neck pain Integumentary Denies rash or wounds Neurologic Neurologic: Denies headache(s), paresthesias or weakness EXAM Physical Exam Const Vital Signs: 04/24/22 01:16 04/24/22 02:07 04/24/22 02:33 Temperature 98.2 F 97.7 F L Temperature Source Temporal Temporal Pulse Rate 60 61 Respiratory Rate 15 16 Blood Pressure 65/45 L 81/47 L Blood Pressure Mean 51 58 Pulse Ox 98 96 97 Oxygen Delivery Method Room Air Room Air Room Air 04/24/22 03:20 04/24/22 03:20 04/24/22 03:41 Temperature 97.7 F L Temperature Source Temporal Pulse Rate 62 Respiratory Rate 30 H Blood Pressure 56/24 L 93/53 L Blood Pressure Mean 34 66 Pulse Ox 97 97 Oxygen Delivery Method Room Air Room Air 04/24/22 04:29 Temperature 98.8 F Temperature Source Temporal Pulse Rate 99 Respiratory Rate 17 Blood Pressure 110/57 L Blood Pressure Mean 74 Pulse Ox 100 Oxygen Delivery Method Room Air Constitutional Narrative: Patient answering questions however would be somnolent awakens to commands. Poor historian. General Appearance ED: NAD HEENT Reports moist mucous membranes normocephalic and atraumatic Eyes General Eye ED: Yes normal appearance of both eyes Neck no lymphadenopathy and supple General: Negative for tenderness Chest Wall Chest: Negative for tenderness Resp normal respiratory effort and normal air movement Effort and Inspection: symmetric chest movement; Negative for respiratory distress Cardio regular rate, regular rhythm and no murmurs Peripheral Pulses: pulses 2+ throughout GI normal to inspection, nondistended, normoactive bowel sounds and non-tender GI Narrative: Brown watery stools were noted on the sheets. Palpation: Negative for guarding or rebound tenderness present Back/Spine no CVA tenderness and no thoracic nor lumbar tenderness Extremity Extremity Narrative: Lower extremity amputations up to her groin. General Extremety ED: Negative for edema or tenderness General Extremity: Negative for edema Neuro oriented x3 and no sensory deficits noted Skin no rashes or lesions noted MDM MDM MDM Narrative Medical decision making narrative: Interventions / MDM: Differential diagnosis: Diarrhea, C. difficile, hypotension, electrolyte abnormalities, JUDIT Diagnosis considered but do not suspect: Nontender abdomen for any concerns for colitis My EKG interpretation: Sinus rate of 61, no ST or T wave changes Imaging independently reviewed and interpreted by myself: 1 view chest x-ray: No acute process. External documents reviewed: N/A Test considered but not ordered:N/A ED course: Patient hypotensive on arrival. Afebrile. Ordered for 2 L of fluid, sepsis labs ordered due to high tension. White count 16.9 creatinine up to 1.44 lactic 2 cm four-point. Stools were collected in the lab and pending. Re-evaluation: Fluids still running blood pressure 110/57. Patient denies any recent antibiotics. Will discuss with hospitalist for admission. Disposition discussed with patient/family/significant other: Patient Case discussed with consulting clinician: Hospitalist, Dr. Ybarra Lab Data Attestation: I reviewed the patient's lab results. Labs: Laboratory Results - last 24 hr 04/24/22 04/24/22 04/24/22 02:59 02:59 02:59 WBC 16.9 H RBC 3.79 L Hgb 11.5 L Hct 38.2 MCV 100.8 H MCH 30.3 MCHC 30.1 L RDW Std Deviation 51.0 H RDW Coeff of Tiffanie 13.7 Plt Count 310 MPV 10.1 Immature Gran % (Auto) 0.600 Neut % (Auto) 89.2 H Lymph % (Auto) 5.4 L [place] % (Auto) 4.0 Eos % (Auto) 0.6 Baso % (Auto) 0.2 Absolute Neuts (auto) 15.1 H Absolute Lymphs (auto) 0.92 Nucleated RBC % 0 PT INR APTT Sodium 142 Potassium 4.5 Chloride 110 H Carbon Dioxide 24.0 Anion Gap 8 BUN 30 H Creatinine 1.42 H Estim Creat Clear Calc 35.47 Est GFR (MDRD) Af Amer 48 L Est GFR (MDRD) Non-Af 40 L BUN/Creatinine Ratio 21.1 H Glucose 169 H Lactic Acid 2.0 Calcium 9.2 Phosphorus Magnesium Total Bilirubin 0.20 AST 22 ALT 18 Alkaline Phosphatase 96 Total Protein 7.0 Albumin 2.8 L Globulin 4.2 Albumin/Globulin Ratio 0.7 L 04/24/22 04/24/22 02:59 03:30 WBC RBC Hgb Hct MCV MCH MCHC RDW Std Deviation RDW Coeff of Tiffanie Plt Count MPV Immature Gran % (Auto) Neut % (Auto) Lymph % (Auto) [place] % (Auto) Eos % (Auto) Baso % (Auto) Absolute Neuts (auto) Absolute Lymphs (auto) Nucleated RBC % PT 14.8 INR 1.2 APTT 33.5 Sodium Potassium Chloride Carbon Dioxide Anion Gap BUN Creatinine Estim Creat Clear Calc Est GFR (MDRD) Af Amer Est GFR (MDRD) Non-Af BUN/Creatinine Ratio Glucose Lactic Acid Calcium Phosphorus 5.1 H Magnesium 2.0 Total Bilirubin AST ALT Alkaline Phosphatase Total Protein Albumin Globulin Albumin/Globulin Ratio Radiography Diagnostic Testing: Clinical Impression(s) from Imaging Studies Chest X-Ray 04/24/22 01:37 IMPRESSION: No acute cardiopulmonary disease. Electronically Signed: Alan Irby MD at 3:31 EDT , Discharge Plan Dx/Rx/DC Orders Clinical Impression: Diarrhea, Hypotension, Leukocytosis, Acute renal insufficiency, PVD (peripheral vascular disease) Disposition Disposition: [facility]
[2022-04-24 03:18] LABS: Absolute Lymphocyte Count 0.92 X10^3/uL (0.83-4.51); Absolute Neutrophil Count 15.1 X10^3/uL (2.0-7.7); Basophil# 0.04 X10^3/uL; Basophil% 0.2 % (0-1); Differential Indicated SCAN CRITERIA MET; Eosinophils% 0.6 % (0-5); Hematocrit 38.2 % (37-47); Hemoglobin 11.5 g/dL (12.0-15.0); Lymphocyte # 0.92 X10^3/ul (0.83-4.51); Lymphocyte % 5.4 % (19-41); Mean Corp Hgb Conc 30.1 g/dL (32-36); Mean Corpuscular Hgb 30.3 pg (27.0-32.0); Mean Corpuscular Volume 100.8 fL (81-99); Mean Platelet Vol. 10.1 fl (6.2-12.0); Monocyte# 0.67 X10^3/uL; NRBC Flagged by Analyzer 0 % (0-5); Neutrophil # 15.09 X10^3/uL (2.7-7.7); Neutrophil % 89.2 % (47-70); POSITIVE COUNT YES; Platelet Count 310 K/mm3 (150-450); RBC Distribution Width CV 13.7 % (11.6-14.6); Red Blood Count 3.79 M/mm3 (4.2-5.4); White Blood Count 16.9 K/mm3 (4.4-11.0)
[2022-04-24] MEDS: Ondansetron 4 MG/2 ML Vial IV ×3 (03:40→20:43)
[2022-04-24 03:47] LABS: ALB/GLOB Ratio 0.7 RATIO (0.9-2.4); AST(SGOT) 22 U/L (15-37); Alanine Aminotransfer ALT/SGPT 18 U/L (13-56); Albumin, Serum 2.8 g/dL (3.2-5.0); Alkaline Phosphatase 96 U/L (45-117); Anion Gap 8 (5-15); BUN 30 mg/dL (7-18); BUN/Creat Ratio 21.1 RATIO (10-20); Calcium,Total 9.2 mg/dL (8.5-10.1); Chloride 110 mmol/L (98-107); Creatinine, Serum 1.42 mg/dL (0.55-1.02); EST Glomerular Filtration Rate 40 mL/min (>60); Est Glom Filt Rate - Afr Amer 48 mL/min (>60); Estimated Creatinine Clearance 35.47 ml/min; Globulin 4.2 g/dL (2.2-4.2); Glucose 169 mg/dL (74-106); Potassium 4.5 mmol/L (3.5-5.1); Sodium Level 142 mmol/L (136-145)
[2022-04-24 04:01] LABS: International Normalized Ratio 1.2; Prothrombin Time (Protime)PT. 14.8 SECONDS (11.7-14.9)
[2022-04-24 04:02] LABS: Partial Thromboplast Time 33.5 Seconds (24.1-36.2)
--- NOTE | 2022-04-24 04:31 | PCM.HP.STD ---
HPI - General General Date of Admission: 04/24/22 Date of Service: 04/24/22 Chief Complaint: Diarrhea. HPI Narrative The patient is a 62 y/o F residing at [facility] w/ PMHx: Nonobstructive CAD, Former tobacco use, IDDM with chronic neuropathy, history of a nonhealing diabetic wounds with eventual bilateral AKA, HTN, HLD, Severe PVD, PAD s/p possible LE PCI, Allergic rhinitis, GERD, Hx C-difficile colitis who presents to the [facility] ED on 04/24/22 with history of persistent profuse diarrhea ongoing x 2 weeks with several episodes daily with nausea without emesis with no recent fevers or chills nor any specific recent antibiotic therapies with increasing fatigue, malaise prompting ED evaluation. Patient denies any associated abdominal cramping or pain. Patient denies any specific ill contacts but she is extremely lethargic and fatigued with some difficulty getting answers. Work-up in the ED included initially upon presentation T98.2, heart rate 60, BP 65/45, respiratory rate 15, 98% on room air with aggressive IV fluids however did initially drop down to 56/24 with improvement now with vital signs heart rate 99, BP 110/57, CBC with WC 16.9, hemoglobin 11.5, MCV 100.8, platelet 310 with left shift, unremarkable coags, CMP with chloride 110, BUN/creatinine 30/1.42, glucose 169, hepatic profile not marked appearing, lactic acid 2.0, chest x-ray with no acute cardiopulmonary findings, blood culture x2 pending per ED, enteric pathogen as well as C. difficile obtained in the ED and pending upon request evaluation of patient, urinalysis and urine culture also pending upon request evaluation of patient. In the ED patient administered 2L NS as well as Zofran 4 mg IV x1. [facility] Medical History (Updated 04/24/22 @ 04:[address] Hernandez Lynch, DO) Anxiety and depression Coronary artery disease Diabetes mellitus, type 2 Diabetic nephropathy Diabetic neuropathy Diabetic retinopathy Former smoker High cholesterol HTN (hypertension) PAD (peripheral artery disease) PVD (peripheral vascular disease) Home Medications amitriptyline 50 mg tablet 50 mg PO QHS 06/12/16 [History Last Taken Unknown] baclofen 10 mg tablet 10 mg PO DAILY 06/12/16 [History Last Taken Unknown] clopidogrel 75 mg tablet 75 mg PO DAILY 06/12/16 [History Last Taken Unknown] fluticasone propionate 50 mcg/actuation nasal spray,suspension 2 spray DAILY 06/12/16 [History Last Taken Unknown] lidocaine 5 % topical ointment 1 applicatio topical DAILY PRN PRN Pain 06/12/16 [History Last Taken Unknown] metoprolol tartrate 25 mg tablet 25 mg PO BID 06/12/16 [History Last Taken Unknown] omeprazole 20 mg capsule,delayed release 20 mg PO DAILY 06/12/16 [History Last Taken Unknown] polyethylene glycol 8000(bulk) 100 % powder 255 g miscellaneous BID PRN PRN Constipation 06/12/16 [History Last Taken Unknown] zolpidem 5 mg tablet 5 mg PO QHS PRN PRN Insomnia 06/12/16 [History Last Taken Unknown] aspirin 81 mg chewable tablet 81 mg PO DAILY@0800 06/14/16 [Rx Last Taken Unknown] atorvastatin 40 mg tablet 40 mg PO QHS ##30 06/14/16 [Rx Last Taken Unknown] insulin aspart U-100 100 unit/mL (3 mL) subcutaneous pen (Novolog FlexPen U-100 Insulin aspart) 10 units (0.1 mL) subcut TIDAC 30 days 06/14/16 [Rx Last Taken Unknown] insulin detemir U-100 100 unit/mL (3 mL) subcutaneous pen (Levemir FlexTouch U-100 Insulin) 50 units (0.5 mL) subcut BID 30 days 06/14/16 [Rx Last Taken Unknown] lisinopril 5 mg tablet 5 mg PO DAILY ##30 06/14/16 [Rx Last Taken Unknown] pen needle, diabetic, safety 30 gauge x 1/3 ##1 09/18/18 [Rx Last Taken Unknown] sulfamethoxazole 800 mg-trimethoprim 160 mg tablet 1 tab PO BID #6 tabs 09/18/18 [Rx Last Taken Unknown] hydrocodone-acetaminophen 5-325mg 5mg-325mg 1 tab PO Q6H PRN PRN Pain 3 days #12 TABLETS 09/05/21 [Rx Last Taken Unknown] Allergy/AdvReac Type Severity Reaction Status Date / Time No Known Allergies Allergy Verified 04/24/22 01:19 Family History (Updated 04/24/22 @ 04:[address] Marce Ybarra MD) Mother Hypertension HLD (hyperlipidemia) Family History other other (Patient denies marked paternal family history including HD, CM, CA.) Surgical History (Updated 04/24/22 @ 04:[address] Marce Ybarra MD) History of foot surgery History of surgery on lower extremity History of tonsillectomy and adenoidectomy S/P AKA (above knee amputation) bilateral S/P peripheral artery angioplasty Social History (Updated 04/24/22 @ 04:[address] Marce Ybarra MD) housing: assisted living facility Smoking Status: Former smoker how long ago did patient quit smoking: Quit remotely 20 years prior, smoked ~ 1 ppd until quit. alcohol intake: never substance use type: does not use ROS ROS Narrative Admission Review of Systems: CONSTITUTIONAL: No weight loss, fever, chills, + weakness or fatigue. HEENT: Eyes: No visual loss, blurred vision, double vision or yellow sclerae. Ears, Nose, Throat: No hearing loss, sneezing, congestion, runny nose or sore throat. SKIN: No rash or itching, lesions, wounds. CARDIOVASCULAR: No chest pain, chest pressure or chest discomfort, palpitations, edema, orthopnea, syncopal events. RESPIRATORY: No shortness of breath, cough or sputum, wheezing, hemoptysis. GASTROINTESTINAL: + anorexia, nausea without vomiting, profuse diarrhea, No abdominal pain, melena, BRBPR. GENITOURINARY: No dysuria, frequency, urgency or retention. NEUROLOGICAL: + Increasing lethargy and general weakness, s/p prior BL AKA with neuropathy, No headache, syncope, paralysis, focal weakness, seizure. MUSCULOSKELETAL: + muscle, back pain, joint pain or stiffness. HEMATOLOGIC: + anemia, bleeding or bruising. LYMPHATICS: No enlarged nodes. No history of splenectomy. PSYCHIATRIC: + history of depression or anxiety. ENDOCRINOLOGIC: No reports of sweating, cold or heat intolerance. No polyuria or polydipsia. ALLERGIES: No history of asthma, hives, eczema or rhinitis. Vital Signs Vital Signs Vital Signs: 04/24/22 01:16 04/24/22 02:07 04/24/22 02:33 Temperature 98.2 F 97.7 F L Temperature Source Temporal Temporal Pulse Rate 60 61 Respiratory Rate 15 16 Blood Pressure 65/45 L 81/47 L Blood Pressure Mean 51 58 Pulse Ox 98 96 97 Oxygen Delivery Method Room Air Room Air Room Air 04/24/22 03:20 04/24/22 03:20 04/24/22 03:41 Temperature 97.7 F L Temperature Source Temporal Pulse Rate 62 Respiratory Rate 30 H Blood Pressure 56/24 L 93/53 L Blood Pressure Mean 34 66 Pulse Ox 97 97 Oxygen Delivery Method Room Air Room Air 04/24/22 04:29 Temperature 98.8 F Temperature Source Temporal Pulse Rate 99 Respiratory Rate 17 Blood Pressure 110/57 L Blood Pressure Mean 74 Pulse Ox 100 Oxygen Delivery Method Room Air Weight Weight: 119 lb 0.794 oz Body Mass Index (BMI) 20.4 Physical Exam Narrative Physical Examination: General: Awakens to stimuli, alert for some time but falls back asleep, very fatigued and lethargic, will answer some orientation questions but likely not at baseline given acute illness and severe hypotension initially with dehydration from GI losses, following commands but again falling asleep quickly. Skin: Normal color, normal turgor, no icterus, no cyanosis. HEENT: AT/NC, EOMI, PERRLA, dry MM, no carotid bruits or JVD noted. Lungs: Diminished, greater bases, no evidence of any distress, no rales, ronchi or wheezing. Heart: Tachycardic with regular rhythm; no gallop, rub audible. Abdomen: Soft, NTTP, no marked distention, hyperactive bowel sounds, no obvious HSM. Extremities: No cyanosis, no clubbing, status post bilateral AKA, right with amputation more distally than left. Neurological: Awakens to stimuli, alert for some time but falls back asleep, very fatigued and lethargic, will answer some orientation questions but likely not at baseline given acute illness and severe hypotension initially with dehydration from GI losses, following commands but again falling asleep quickly, cognitive function improving but not baseline intact; pupils equally reactive to light and accommodation, cranial nerves grossly normal, moving all 4 extremities although patient is status post bilateral AKA of note, strength severely globally decreased secondary to acute presentation. Psychiatric: Affect appears flat, fatigued, lethargic, no acute evidence of depressive or anxiety feelings. Results Lab / Micro Data Result Diagrams: 04/24/22 02:59 04/24/22 02:59 Labs: Laboratory Results - last 24 hr 04/24/22 02:59: WBC 16.9 H, RBC 3.79 L, Hgb 11.5 L, Hct 38.2, MCV 100.8 H, MCH 30.3, MCHC 30.1 L, RDW Std Deviation 51.0 H, RDW Coeff of Tiffanie 13.7, Plt Count 310, MPV 10.1, Immature Gran % (Auto) 0.600, Neut % (Auto) 89.2 H, Lymph % (Auto) 5.4 L, [place] % (Auto) 4.0, Eos % (Auto) 0.6, Baso % (Auto) 0.2, Absolute Neuts (auto) 15.1 H, Absolute Lymphs (auto) 0.92, Nucleated RBC % 0 04/24/22 02:59: Sodium 142, Potassium 4.5, Chloride 110 H, Carbon Dioxide 24.0, Anion Gap 8, BUN 30 H, Creatinine 1.42 H, Estim Creat Clear Calc 35.47, Est GFR (MDRD) Af Amer 48 L, Est GFR (MDRD) Non-Af 40 L, BUN/Creatinine Ratio 21.1 H, Glucose 169 H, Calcium 9.2, Total Bilirubin 0.20, AST 22, ALT 18, Alkaline Phosphatase 96, Total Protein 7.0, Albumin 2.8 L, Globulin 4.2, Albumin/Globulin Ratio 0.7 L 04/24/22 02:59: Lactic Acid 2.0 04/24/22 03:30: PT 14.8, INR 1.2, APTT 33.5 Radiology Impression Chest X-Ray 04/24/22 01:37 IMPRESSION: No acute cardiopulmonary disease. Electronically Signed: Alan Irby MD at 3:31 EDT , Assessment & Plan Assessment/Plan (1) Diarrhea: PLAN: Plan The patient is a 62 y/o F residing at [facility] w/ PMHx: Nonobstructive CAD, Former tobacco use, IDDM with chronic neuropathy, history of a nonhealing diabetic wounds with eventual bilateral AKA, HTN, HLD, Severe PVD, PAD s/p possible LE PCI, Allergic rhinitis, GERD, Hx C-difficile colitis who presents to the [facility] ED on 04/24/22 with history of persistent profuse diarrhea ongoing x 2 weeks with several episodes daily with nausea without emesis with no recent fevers or chills nor any specific recent antibiotic therapies with increasing fatigue, malaise prompting ED evaluation. #1. Acute Encephalopathy and Hypotension secondary to Persistent diarrhea concerning for acute gastroenteritis, possible C. difficile colitis given prior history with associated severe hypertension: We will admit to PCU given blood pressure improvement but continue to closely monitor, continue aggressive hydration, sample obtained and testing including c diff, stool cx pending per ED upon evaluation, will preemptively initiate on oral vancomycin given prior history to be cautious but if c-diff is negative, if no obvious bacterial etiology could certainly start loperamide, place on lactobacillus, anti-emetics PRN, pain regimen PRN, maintain on fall precautions, COVID PCR requested. #2. Acute kidney injury: Secondary to acute GI losses as noted #1, admission BUN/Cr 30/1.42, prior baseline creatinine noted to be primarily 0.6 to max 0.8, most recently 12/29/2021 creatinine 0.80. Will hydrate, hold nephrotoxic medications and repeat chemistry in AM. #3. IDDM with chronic neuropathy/retinopathy/neuropathy, history of bilateral lower extremity nonhealing diabetic wounds with eventual bilateral AKA necessity with associated chronic pain syndrome: Will continue home insulin regimen with hold/1.2 dose pending BS trending until oral intake assured appropriate, given nausea start with clears and ADAT to ADA once improving, while on clears q 6 hour accu checks w/ ISS, fall precautions, offloading, PT and OT consultation, continue patient home gabapentin regimen as well as baclofen. #4. Nonobstructive CAD: 2017 cardiac catheterization with LVEF 65%, multivessel [place] band coronary artery disease especially left circumflex a very small caliber OM with no PCI with medical management recommendation at that time, will continue aspirin, Plavix, statin, holding both metoprolol and lisinopril given presentation is noted. #5. Macrocytic anemia, unclear chronicity: Admission hemoglobin 11.5, MCV 100.8, most recent prior lab 12/29/2021 hemoglobin 12.6 at that time however patient in 2019 did have hemoglobin down to 11.3, will continue to monitor. #6. Depression and anxiety: Noted previously on ED evaluation 12/29/2021, at that time recommendation for follow-up outpatient with psychiatry, will continue patient recently initiated duloxetine regimen with recommended continued close outpatient follow-up. #7. Hypertension: Given presentation holding all hypertensive medications, add back once clinically appropriate. #8. Hyperlipidemia: We will continue patient on statin therapy. #9. Severe PVD, PAD: Per prior notes patient possibly with peripheral PCI previously but poor historian. We will continue aspirin, Plavix, statin, holding hypertensive regimen as noted, encourage continued tobacco cessation. #10. Former tobacco use: Encourage continued tobacco cessation. #11. GERD: We will maintain on PPI although if recurrent C. difficile may necessitate re-discussions about usage of this medication long-term. #12. DVT prophylaxis: Lovenox. #13. 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 Following discussions about the differences in these status, requested Full Code status. Advanced Care Planning Face to Face Time: 16 minutes. Admission Evaluation Time spent evaluating chart, patient history, patient evaluation, care planning and discussion with specialists: 75 minutes. Charges/Coding Visit Charges Inpatient E&M: 50294 Init Hosp L3 Procedures Hospitalists Procedures: 47082 Advncd Care Plan 30 Min
[2022-04-24 05:03] LABS: Mucous, Urine 0 SEEN /hpf (<or=2+)
[2022-04-24 05:21] LABS: Color, Urine Yellow (Yellow); Glucose, Dipstick Normal (Normal); Ketone-Dipstick 5 mg/dl (Negative); Leukocyte Esterase-Dipstick 500 /ul (Negative); Nitrite-Dipstick Negative (Negative); Occult Blood-Urine Negative /ul (Negative); Protein-Dipstick 30 mg/dl (Negative); Urine Clarity Clear (Clear); Urine Urobilinogen Normal (Normal)
[2022-04-24 05:27] LABS: Phosphorus 5.1 mg/dL (2.5-4.9)
[2022-04-24 05:52] LABS: Bacteria 2+ /hpf (None Seen); Hyaline Cast 5-10 SEEN /lpf (0-5); Red Blood Cells-Urine 0-5 SEEN /hpf (0-5); Squamous Epithelial Cells - UA 0-5 SEEN /hpf (5-10); Urine Bilirubin Dipstick 1 mg/dL (Negative); White Blood Cells 10-25 SEEN /hpf (0-5)
[2022-04-24] MEDS: 0.9% Normal Saline 1,000 ML 125 ML IV ×3 (07:05→22:39)
[2022-04-24 07:10] LABS: Reflex Lactate? Y
[2022-04-24 08:51] LABS: Lactic Acid 1.1 mmol/L (0.4-1.9)
[2022-04-24] MEDS: Pantoprazole Sodium 20 MG Tablet PO (10:15)
[2022-04-24] MEDS: Clopidogrel Bisulfate 75 MG Tablet PO (10:15)
[2022-04-24] MEDS: Menthol/Lanolin/Calamine/Znox 113 GM Tube 1 APPLIC TOPICAL ×4 (10:15→23:29)
[2022-04-24] MEDS: Vancomycin HCl 250 MG Capsule 500 MG PO ×2 (10:15→17:38)
[2022-04-24] MEDS: Enoxaparin 40 MG/0.4 ML Syringe SC (10:15)
[2022-04-24] MEDS: Aspirin 81 MG TAB.CHEW PO (10:16)
[2022-04-24] MEDS: Baclofen 10 MG Tablet PO (10:16)
[2022-04-24 12:31] LABS: Bedside Glucose 135 mg/dL (74-106)
[2022-04-24 18:05] LABS: Bedside Glucose 158 mg/dL (74-106)
--- NOTE | 2022-04-24 19:52 | EKG12_ITS ---
Test Reason : cp Blood Pressure : / mmHG Vent. Rate : 086 BPM Atrial Rate : 086 BPM P-R Int : 178 ms QRS Dur : 082 ms QT Int : 364 ms P-R-T Axes : 053 031 051 degrees QTc Int : 435 ms Normal sinus rhythm Septal infarct , age undetermined ST/T wave abnormality: Consider anterolateral ischemia Abnormal ECG Confirmed by MISBAH BECKFORD, ALEC ([id number]), editor at large MAKENNA ROMERO ([id number]) on 04/26/2022 9:57:50 AM Referred By: Amada Confirmed By:ALEC CRAWLEY MD
[2022-04-24] MEDS: 0.9% Saline Lock 10 ML Syringe IV ×2 (20:43→23:24)
[2022-04-24 22:05] LABS: Troponin-I HS 1391 pg/mL (3.0-54.0)
--- NOTE | 2022-04-24 22:51 | PN.HOSP_ITS ---
Hospitalist Note Nurse called me about 8:10 PM stating that patient having chest pain throwing up. Chest with more left-sided localized without radiation, sharp in quality 8/10 intensity. Twelve-lead EKG was done which shows ST depression in V3 to V6, normal sinus rhythm. QTc 469 ms. Troponin was ordered and first 1 is 3091. Cycle cardiac enzymes. Repeat twelve-lead EKG ordered. Last EKG in our system is from June 11, 2016; individually reviewed, normal sinus rhythm normal ECG 93 bpm. Patient was given sublingual nitro but transition to nitro ointment 1 mg every 6 hourly as needed. Patient is already on baby aspirin and Plavix. Started on IV heparin drip without bolus as patient had Lovenox as DVT prophylaxis in the morning. Earlier patient was admitted with suspicion of gastroenteritis with diarrhea. She is also having nausea and vomiting. Customer Service Manager consulted. Patient BP is on lower side 97/83 heart rate 91. No hypoxia no tachypnea. Medical record review shows patient had cardiac cath and diagnostic in June 2016 reported as normal LV size wall motion and systolic function EF 65%. [place] multivessel coronary artery disease, small caliber left circumflex and very small caliber OM. On medical therapy. Patient has history of diabetes mellitus type 2, diabetic ulcer, PAD and bilateral AKA amputee. Seen and examined Patient having vomiting and complaining of suicidal chest pain. Exam: Lungs: Air entry bilateral equal diminished in lung bases. No crepitation/rhonchi. Heart: S1-S2 regular, sinus rhythm, no murmur gallop or rub. Abdomen: Soft, nontender nondistended. Hyperactive bowel sounds Impression: Non-STEMI/ACS. Management as mentioned above.
[2022-04-24] MEDS: proCHLORPERazine 10 MG/2 ML Vial IV (23:24)
[2022-04-24] MEDS: Lactated Ringers 1,000 ML 999 ML IV (23:24)
[2022-04-24 23:56] LABS: Bedside Glucose 225 mg/dL (74-106)
[2022-04-25] VITALS (12 sets, daily range): BP systolic 85–143; BP diastolic 52–93; PULSE 102–117; RESP 16–24; TEMP 36.2–36.7; O2SAT 93–99; BMI 18.8
[2022-04-25 00:04] LABS: Prothrombin Time (Protime)PT. 13.2 SECONDS (11.7-14.9)
[2022-04-25 00:05] LABS: Partial Thromboplast Time 34.7 Seconds (24.1-36.2)
[2022-04-25 00:21] LABS: Troponin-I HS 1779 pg/mL (3.0-54.0)
[2022-04-25] MEDS: HEPARIN/D5w 25,000 UNITS 25,000 UNITS/250 ML IV.SOLN. 7 UNITS CONT INF (00:28)
--- NOTE | 2022-04-25 00:30 | EKG12_ITS ---
Test Reason : CP Blood Pressure : / mmHG Vent. Rate : 086 BPM Atrial Rate : 086 BPM P-R Int : 170 ms QRS Dur : 086 ms QT Int : 392 ms P-R-T Axes : 053 056 076 degrees QTc Int : 469 ms Normal sinus rhythm Septal infarct , age undetermined ST & T wave abnormality, consider anterolateral ischemia Abnormal ECG Confirmed by MISBAH BECKFORD, ALEC ([id number]), fan mail editor MAKENNA ROMERO ([id number]) on 04/26/2022 9:58:02 AM Referred By: SAMANTA Confirmed By:ALEC CRAWLEY MD
[2022-04-25] MEDS: Nitroglycerin Oint 1 INCH PACKET 0.5 INCH TD (01:20)
--- NOTE | 2022-04-25 01:39 | RAD_ITS ---
INDICATION: SOB EXAMINATION/TECHNIQUE: X-RAY - XR Chest 1 View COMPARISON: None. FINDINGS: LINES/DEVICES: None. LUNGS: Increased digital markings in both lungs suggesting pulmonary edema. Ill-defined airspace opacities in the left lung base may represent superimposed pneumonia. MEDIASTINUM AND CARDIOVASCULAR STRUCTURES: Cardiac silhouette not enlarged. Central airways and mediastinal contour are unremarkable. BONES AND SOFT TISSUES: Unremarkable. RAD/Chest 1 View (Portable) IMPRESSION: Pulmonary edema. Left lower lobe pneumonia. Electronically Signed: Sabine Hinojosa MD at 2:35 EDT ,
[2022-04-25] MEDS: 0.9% Saline Lock 10 ML Syringe IV (01:54)
[2022-04-25] MEDS: Furosemide 20 MG/2 ML VIAL IV (01:54)
[2022-04-25 04:11] LABS: Absolute Lymphocyte Count 0.75 X10^3/uL (0.83-4.51); Absolute Neutrophil Count 11.1 X10^3/uL (2.0-7.7); Basophil# 0.02 X10^3/uL; Basophil% 0.2 % (0-1); Hematocrit 41.3 % (37-47); Hemoglobin 12.5 g/dL (12.0-15.0); Lymphocyte # 0.75 X10^3/ul (0.83-4.51); Lymphocyte % 6.1 % (19-41); Mean Corp Hgb Conc 30.3 g/dL (32-36); Mean Corpuscular Hgb 30.3 pg (27.0-32.0); Mean Platelet Vol. 10.1 fl (6.2-12.0); Monocyte# 0.31 X10^3/uL; Monocyte% 2.5 % (0-10); NRBC Flagged by Analyzer 0 % (0-5); Neutrophil # 11.07 X10^3/uL (2.7-7.7); Neutrophil % 90.8 % (47-70); Platelet Count 321 K/mm3 (150-450); RBC Distribution Width CV 13.8 % (11.6-14.6); RBC Distribution Width SD 50.8 fl (35.1-43.9); Red Blood Count 4.13 M/mm3 (4.2-5.4); White Blood Count 12.2 K/mm3 (4.4-11.0)
[2022-04-25 04:45] LABS: Troponin-I HS 4135 pg/mL (3.0-54.0)
[2022-04-25 05:00] LABS: ALB/GLOB Ratio 0.6 RATIO (0.9-2.4); AST(SGOT) 99 U/L (15-37); Alanine Aminotransfer ALT/SGPT 21 U/L (13-56); Albumin, Serum 2.7 g/dL (3.2-5.0); Alkaline Phosphatase 100 U/L (45-117); Anion Gap 13 (5-15); BUN 20 mg/dL (7-18); BUN/Creat Ratio 22.5 RATIO (10-20); Calcium,Total 8.4 mg/dL (8.5-10.1); Chloride 116 mmol/L (98-107); Creatinine, Serum 0.89 mg/dL (0.55-1.02); EST Glomerular Filtration Rate 69 mL/min (>60); Est Glom Filt Rate - Afr Amer 83 mL/min (>60); Estimated Creatinine Clearance 53.13 ml/min; Globulin 4.4 g/dL (2.2-4.2); Glucose 366 mg/dL (74-106); Potassium 3.4 mmol/L (3.5-5.1); Protein, Total 7.1 g/dL (6.4-8.2); Sodium Level 146 mmol/L (136-145)
[2022-04-25] MEDS: Insulin Lispro 100 UNIT/ML INSULN.PEN SC ×4 (06:26→23:48)
[2022-04-25 07:14] LABS: Partial Thromboplast Time 57.2 Seconds (24.1-36.2)
[2022-04-25 07:20] LABS: Bedside Glucose 355 mg/dL (74-106)
--- NOTE | 2022-04-25 07:26 | ECHOD_ITS ---
Reason For Study: CHEST PAIN Procedure This was a 2D Doppler, Color Flow transthoracic echocardiogram. The study was technically difficult. PT was very UNCOOPERATIVE, wanting to lie on her belly. PT C/O chest, back and right shoulder pain. Exam performed portable in patient room. Dr. Ann notified of LV function at 10:25 am. Left Ventricle Normal LV size. Severe segmental systolic dysfunction (see wall motion). The estimated ejection fraction is 20 %. Diastolic function is indeterminate. Right Ventricle Normal RV size. Normal systolic function. Atria Normal left atrium. Normal right atrium. No doppler evidence for ASD. Mitral Valve There is no mitral annular calcification. Normal mitral valve. The mitral valve chordae are thickened and/or calcified. Moderate (2+) eccentric mitral valve insufficiency. Tricuspid Valve Normal tricuspid valve. Mild tricuspid valve insufficiency. Right ventricular systolic pressure estimated to be 42 mmHg. Aortic Valve Trisinus/trileaflet aortic valve. Mild focal aortic valve calcification. Pulmonic Valve The pulmonic valve is not well visualized. Great Vessels The aortic root is not well visualized. Pericardium/Pleural No pericardial effusion. MMode/2D Measurements & Calculations LVIDd: 3.9 cm IVSd: 0.86 cm LA dimension: 3.5 cm LVIDs: 2.8 cm LVPWd: 0.83 cm RVDd: 2.3 cm FS: 29.4 % LAV(MOD-bp): 28.8 ml LA A4 area: 11.7 cm2 RA A4 area: 5.0 cm2 LAV(MOD-bp) Indexed: 19.0 ml/m2 LAV(MOD-sp2): 26.5 ml LAV(MOD-sp4): 29.0 ml Doppler Measurements & Calculations MV E max vianca: 118.2 cm/sec Ao V2 max: 100.9 cm/sec LV V1 max: 57.4 cm/sec Ao max P.1 mmHg LV V1 max P.3 mmHg Ao V2 mean: 67.9 cm/sec LV V1 mean P.65 mmHg Ao mean P.0 mmHg LV V1 mean: 38.7 cm/sec Ao V2 VTI: 13.0 cm LV V1 VTI: 9.0 cm AV (velocity ratio): 0.70 MR max vianca: 447.6 cm/sec TR max vianca: 289.6 cm/sec MR max P.1 mmHg TR max P.5 mmHg MR mean vianca: 369.4 cm/sec MR mean P.9 mmHg MR VTI: 121.4 cm ECHO/Echo Complete Interpretation Summary May also includeThe study was technically difficult. Severe segmental systolic dysfunction (see wall motion). The estimated ejection fraction is 20 %. The mitral valve chordae are thickened and/or calcified. Moderate (2+) eccentric mitral valve insufficiency. Mild tricuspid valve insufficiency. Mild focal aortic valve calcification. Right ventricular systolic pressure estimated to be 42 mmHg. Diastolic function is indeterminate. Comment: Based upon the 2D echocardiographic images of the left left ventricle with respect to regional wall motion abnormalities and overall LV systolic function the differe ntial diagnosis may also include a Takotsubo syndrome. Ordering Physician: Ángel Posada Referring Physician: Chloé Mehta Performed By: Rupinder Dillard RDCS, RVT
--- NOTE | 2022-04-25 09:53 | PN.HOSP_ITS ---
Subjective Subjective Had some chest pain overnight with an elevation in her troponin. Echo is pending Objective Data Objective Data Vital Signs: Vital Signs Temp Pulse Resp BP Pulse Ox O2 Del Method O2 Flow Rate 97.6 F L 117 H 18 100/59 L 97 Room Air 8 04/25/22 06:10 04/25/22 06:10 04/25/22 06:10 04/25/22 06:10 04/25/22 06:10 04/25/22 06:10 04/25/22 02:15 Oxygen Flow Rate (L/min) 8 Oxygen Delivery Method Room Air Weight: 109 lb 12.643 oz Body Mass Index (BMI) 18.8 Intake & Output: Intake and Output for Last 24 Hours 04/24/22 04/25/22 04/26/22 03:59 03:59 03:59 Intake Total 5846.66 / 5846.66 60.43 / 60.43 Output Total 550 / 550 Balance 5846.66 / 5846.66 -489.57 / -489.57 Lab / Micro Data Result Diagrams: 04/25/22 04:04 04/25/22 04:04 Labs: Laboratory Results - last 24 hr 04/24/22 12:11: POC Glucose 135 H 04/24/22 17:37: POC Glucose 158 H 04/24/22 21:18: Troponin I High Sens 1391 H* 04/24/22 23:27: Troponin I High Sens 1779 H* 04/24/22 23:27: PT 13.2, INR 1.0, APTT 34.7 04/24/22 23:28: POC Glucose 225 H 04/25/22 04:04: WBC 12.2 H, RBC 4.13 L, Hgb 12.5, Hct 41.3, MCV 100.0 H, MCH 30.3, MCHC 30.3 L, RDW Std Deviation 50.8 H, RDW Coeff of [place] 13.8, Plt Count 321, MPV 10.1, Immature Gran % (Auto) 0.400, Neut % (Auto) 90.8 H, Lymph % (Auto) 6.1 L, [place] % (Auto) 2.5, Eos % (Auto) 0.0, Baso % (Auto) 0.2, Absolute Neuts (auto) 11.1 H, Absolute Lymphs (auto) 0.75 L, Nucleated RBC % 0 04/25/22 04:04: Sodium 146 H, Potassium 3.4 L, Chloride 116 H, Carbon Dioxide 17.0 L, Anion Gap 13, BUN 20 H, Creatinine 0.89, Estim Creat Clear Calc 53.13, Est GFR (MDRD) Af Amer 83, Est GFR (MDRD) Non-Af 69, BUN/Creatinine Ratio 22.5 H , Glucose 366 H, Calcium 8.4 L, Total Bilirubin 0.60, AST 99 H, ALT 21, Alkaline Phosphatase 100, Total Protein 7.1, Albumin 2.7 L, Globulin 4.4 H, Albumin/Globulin Ratio 0.6 L 04/25/22 04:04: Troponin I High Sens 4135 H* 04/25/22 06:22: POC Glucose 355 H 04/25/22 06:51: APTT 57.2 H Micro: Microbiology 04/24/22 01:55 Stool Enteric Bacteriology - Final 04/24/22 01:55 Stool C. difficile GDH Antigen & Toxins - Final 04/24/22 01:55 Stool C. difficile DNA Amplification - Final Radiography Diagnostic Testing: Radiology Impression Chest X-Ray 04/25/22 01:39 IMPRESSION: Pulmonary edema. Left lower lobe pneumonia. Electronically Signed: Sabine Hinojosa MD at 2:35 EDT , Physical Exam Narrative General: Alert, Oriented x3, Cooperative, No apparent distress HEENT: Atraumatic, PERRLA, EOMI, Normocephalic Oral: Moist Mucosa Neck: Supple, No JVD Lungs: Diminished, Normal air movement, No rhonchi, No wheeze, No rales Cardiovascular: Tachycardic, Regular Rhythm, Normal S1, Normal S2, No murmurs Abdomen: Soft, Non Tender, Non-Distended, No Hepato-splenomegaly Extremities: No edema, Capillary Refill Less than 3 Seconds Skin: No rashes, No breakdown Musculoskeletal: No Tenderness to Palpation of Joints or Extremities, 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 Acute encephalopathy and hypotension secondary to persistent diarrhea with acute gastroenteritis/JUDIT ? Infectious work-up is negative, there is no C. difficile toxin production ? We will continue with IV fluids ? Function has returned back to baseline 2. Chest pain/nonobstructive CAD/HTN/HLD/severe peripheral vascular disease ? She did have an elevated troponin overnight with EKG changes ? Echo is pending, continue with the heparin drip ? Appreciate cardiology assistance ? We will continue to hold her blood pressure medications given her borderline systolics ? Continue with her statin as well and as aspirin and Plavix 3. 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 Accu-Cheks every 6 with sliding scale insulin ? We will make adjustments as necessary 4. GERD ? Stable ? Continue with PPI 5. Anxiety/depression ? Stable ? Continue with her home medications may need to add Ativan DVT: Heparin drip Charges/Coding Visit Charges Inpatient E&M: 72962 Subs Hosp L2
[2022-04-25] MEDS: Fluticasone 0.05% 1 SPRAY NASAL.SRY 2 SPRAY NASAL (10:54)
[2022-04-25] MEDS: Aspirin 81 MG TAB.CHEW PO (10:54)
[2022-04-25] MEDS: Baclofen 10 MG Tablet PO (10:56)
[2022-04-25] MEDS: Pantoprazole Sodium 20 MG Tablet PO (10:56)
[2022-04-25] MEDS: Clopidogrel Bisulfate 75 MG Tablet PO (10:58)
--- NOTE | 2022-04-25 11:31 | CASEMGMT ---
BROOKE called [facility] and spoke with patient's nurse Kimberli regarding patient's level of care normally. Per Kimberli and the aide Isabel patient is able to get herself in and out of bed with no sliding board. Also, patient uses a sliding board for showering. They assist minimally. BROOKE notified PT/OT. Tia AYALA
[2022-04-25] MEDS: LORazepam 0.5 MG Tablet PO ×2 (12:08→20:28)
[2022-04-25] MEDS: Ondansetron 4 MG/2 ML Vial IV (12:09)
[2022-04-25] MEDS: Insulin Glargine-YFGN 100 UNIT/ML Pen 25 UNIT SC ×2 (12:14→23:39)
[2022-04-25 13:05] LABS: Bedside Glucose 339 mg/dL (74-106)
[2022-04-25] MEDS: Heparin Injection (Vial) 5,000 UNIT/ML VIAL IV (13:52)
--- NOTE | 2022-04-25 15:32 | CON.PCM.CA_ITS ---
Assessment & Plan Assessment/Plan (1) NSTEMI, initial episode of care: PLAN: The patient has experienced a non-ST segment elevation KS. At the present time there is a concern that this may not be a type I event secondary to an acute coronary event but it may be a type II event brought out by her acute noncardiovascular condition and her acute volume overload and potentially an underlying Takotsubo syndrome event. At the moment she appears to be resting comfortably. She will continue to be monitored. She will continue medical therapy as deemed appropriate which may include agents such as aspirin, nitrates, beta-blockers, afterload reducing agents, and lipid- lowering agents. She is also on anticoagulant therapy with IV heparin at the moment. She has already undergone noninvasive valuation. A discussion was held with the patient with respect to further invasive evaluation and/or care. At the present time she states she does not want to proceed with invasive evaluation such as diagnostic cardiac catheterization. (2) Takotsubo syndrome: PLAN: The patient has an underlying echocardiogram that in the differential diagnosis includes a Takotsubo syndrome event. Based upon the patient's previous cardiovascular history and her current events this may be a reasonable diagnosis to consider. At the present time she will continue to be monitored. She should continue medical therapy as noted above. She has declined further invasive evaluation and care. She can be considered for future echocardiographic follow-up to reassess her left ventricular wall motion and systolic function. If it does improve with medical therapy it may give more evidence that she has experienced, during the stressful event that she has been going through, and underlying Takotsubo syndrome. (3) CHF (congestive heart failure): PLAN: The patient may have developed HF secondary to her IV volume treating her gastroenteritis and dehydration superimposed upon concerns of an underlying left ventricular systolic dysfunction/decreased LVEF potentially secondary to a Takotsubo syndrome. She has undergone medical therapy with IV diuresis. She appears to be clinically improved at this time. She appears to be resting comfortably on room air oxygen. At the moment she will continue medical management. (4) HLD (hyperlipidemia): PLAN: The patient has a history of hyperlipidemia. She should continue risk factor evaluation and care and medical therapy with agents such as her atorvastatin. (5) PVD (peripheral vascular disease): PLAN: The patient has peripheral arterial occlusive disease. It appears this contributed to the loss of her lower extremities. She will need to continue to follow peripheral vascular surgery as deemed approdarrius vásquez. (6) Diarrhea: PLAN: The patient presented for concerns of gastroenteritis thought secondary to an underlying infectious disease etiology. She does have a C. difficile antigen positive/toxin negative. At the moment she continues in isolation precautions. She will continue medical management per internal medicine. Addt'l Comments The above was discussed and reviewed with the patient as well as with the [facility] hospitalist staff. Comment: Time spent in the patient's evaluation, examination, review of medical records, review of imaging studies, placing orders, documentation, and discussion: 45 minutes. HPI Consult Data Date of Consult: 04/25/22 HPI Narrative HPI Narrative: TONYA DANIELS, is a 62 year old white female who presents for ca rdiovascular consultation based upon concerns of abnormal cardiac enzymes compatible with an acute non-ST segment elevation KS and an abnormal transthoracic echocardiogram demonstrating left ventricular regional wall motion abnormalities and systolic dysfunction potentially compatible with underlying Takotsubo syndrome superimposed upon a history of underlying CAD (previously not requiring revascularization therapy), hyperlipidemia, diabetes mellitus, peripheral arterial occlusive disease, status post bilateral lower extremity amputation who is undergoing evaluation and care for concerns of gastroenteritis (C. difficile antigen positive/toxin negative). The patient presented to [facility] on 04-24-2022 for concerns of acute gastroenteritis with nausea, no emesis reported, and frequent loose bowel movements/diarrhea with subsequent fatigue and malaise. She was evaluated by the [facility] emergency department staff and the [facility] hospital staff. She was thought to demonstrate evidence of underlying dehydration. She was subsequently placed in the PCU and treated medically with IV fluids. Subsequently the patient was noted to complain of chest discomfort-sharp, nausea/emesis, and shortness of breath/dyspnea. The patient underwent evaluation with cardiac enzymes which demonstrated abnormal high-sensitivity troponin I levels and an ECG that demonstrated sinus rhythm with a septal KS of indeterminate age and nonspecific ST segment abnormality. A chest x-ray was performed which upon review suggested a portable chest film with the potential of increased pulmonary vascularity compatible with CHF/pulmonary edema. The patient was treated medically. This included agents such as nitrates in the way of nitroglycerin paste as well as IV diuretics with IV furosemide and IV heparin. A transthoracic echocardiogram was requested. The results are as noted below. The patient then was reported, status post IV diuresis, of having improvement in her underlying respiratory status/O2 status and being on room air and resting comfortably. Upon cardiovascular consultation the patient appeared to be resting comfortably in bed without O2 support. She denied any ongoing chest discomfort or difficulty breathing. She denied any ongoing nausea, emesis, or frequent loose bowel movements. There appeared to be no complaints of palpitations and no evidence of near syncope or syncope. The patient's cardiac rhythm monitor demonstrated sinus rhythm with sinus arrhythmia and sinus bradycardia and sinus tachycardia. The patient was also reported as COVID-19 negative. [facility] Medical History (Updated 04/25/22 @ 15:[address] Evelio Ann MD) Anxiety and depression Coronary artery disease Diabetes mellitus, type 2 Diabetic nephropathy Diabetic neuropathy Diabetic retinopathy Former smoker High cholesterol HTN (hypertension) PAD (peripheral artery disease) PVD (peripheral vascular disease) Home Medications amitriptyline 50 mg tablet 50 mg PO QHS 06/12/16 [History Last Taken Unknown] baclofen 10 mg tablet 10 mg PO DAILY 06/12/16 [History Last Taken Unknown] clopidogrel 75 mg tablet 75 mg PO DAILY 06/12/16 [History Last Taken Unknown] fluticasone propionate 50 mcg/actuation nasal spray,suspension 2 spray DAILY 06/12/16 [History Last Taken Unknown] lidocaine 5 % topical ointment 1 applicatio topical DAILY PRN PRN Pain 06/12/16 [History Last Taken Unknown] metoprolol tartrate 25 mg tablet 25 mg PO BID 06/12/16 [History Last Taken Unkn own] omeprazole 20 mg capsule,delayed release 20 mg PO DAILY 06/12/16 [History Last Taken Unknown] polyethylene glycol 8000(bulk) 100 % powder 255 g miscellaneous BID PRN PRN Constipation 06/12/16 [History Last Taken Unknown] zolpidem 5 mg tablet 5 mg PO QHS PRN PRN Insomnia 06/12/16 [History Last Taken Unknown] aspirin 81 mg chewable tablet 81 mg PO DAILY@0800 06/14/16 [Rx Last Taken Unknown] atorvastatin 40 mg tablet 40 mg PO QHS ##30 06/14/16 [Rx Last Taken Unknown] insulin aspart U-100 100 unit/mL (3 mL) subcutaneous pen (Novolog FlexPen U-100 Insulin aspart) 10 units (0.1 mL) subcut TIDAC 30 days 06/14/16 [Rx Last Taken Unknown] insulin detemir U-100 100 unit/mL (3 mL) subcutaneous pen (Levemir FlexTouch U- 100 Insulin) 50 units (0.5 mL) subcut BID 30 days 06/14/16 [Rx Last Taken Unkno wn] lisinopril 5 mg tablet 5 mg PO DAILY ##30 06/14/16 [Rx Last Taken Unknown] pen needle, diabetic, safety 30 gauge x 1/3 ##1 09/18/18 [Rx Last Taken Unknown] sulfamethoxazole 800 mg-trimethoprim 160 mg tablet 1 tab PO BID #6 tabs 09/18/18 [Rx Last Taken Unknown] hydrocodone-acetaminophen 5-325mg 5mg-325mg 1 tab PO Q6H PRN PRN Pain 3 days #12 TABLETS 09/05/21 [Rx Last Taken Unknown] Allergy/AdvReac Type Severity Reaction Status Date / Time No Known Allergies Allergy Verified 04/24/22 01:19 Family History (Updated 04/24/22 @ 04:[address] Marce Ybarra MD) Mother Hypertension HLD (hyperlipidemia) Family History other Surgical History (Updated 04/24/22 @ 04:[address] Marce Ybarra MD) History of foot surgery History of surgery on lower extremity History of tonsillectomy and adenoidectomy S/P AKA (above knee amputation) bilateral S/P peripheral artery angioplasty Social History (Updated 04/24/22 @ 04:[address] Marce Ybarra MD) housing: assisted living facility Smoking Status: Former smoker how long ago did patient quit smoking: Quit remotely 20 years prior, smoked ~ 1 ppd until quit. alcohol intake: never substance use type: does not use ROS Constitutional Constitutional: Reports as per HPI Eyes Eyes: Reports as per HPI ENT HEENT: Reports as per HPI Cardiovascular Cardiovascular: Reports chest pain, dyspnea, nausea and vomiting Respiratory/Chest Respiratory/Chest: Reports dyspnea Gastrointestinal Gastrointestinal: Reports diarrhea, nausea and vomiting Genitourinary Genitourinary: Reports as per HPI Musculoskeletal Musculoskeletal: Reports as per HPI Integumentary Integumentary: Reports as per HPI Neurologic Neurologic: Reports as per HPI Physical Exam Const Orientation / Consciousness: awake HEENT normocephalic, head/scalp atraumatic and hearing grossly normal bilaterally Eyes PERRL, EOMs intact bilaterally, conjunctivae normal and no scleral icterus Neck full ROM, supple and no JVD Carotids: normal carotid upstroke Resp normal respiratory effort and clear to auscultation bilaterally Cardio regular rate, regular rhythm, S1 normal heart sound and S2 normal heart sound GI normal to inspection, nondistended, normoactive bowel sounds Extremity Extremity Narrative: Status post bilateral lower extremity amputation. Skin no rashes or lesions noted Psych cooperative Risk Stratification Risk Stratification Applicable: Yes Age >/= 65: No >/= 3 CAD Risk Factors (HTN, HLD, DM, family hx of CAD, or current smoker): Yes Aspirin Use in the Past 7 Days: No Severe Angina (>/= episodes in 24 hours): Yes EKG ST Changes >/= 0.5mm: Yes Positive Cardiac Marker: Yes JONATAN Risk Stratification Score: 4 JONATAN % Risk: 20% Risk Procedure Criteria Type of Procedure Procedure Type: Elective Elective Risks - COVID COVID Risk Discussion: The surgeon/proceduralist and patient have discussed in detail the risk of exposure to and/or potential harm posed by the COVID-19 virus with having a surgery/procedure at this time versus the risk of delaying the surgery/procedure. It is not possible to know either the risk of delaying the surgery or procedure or chance of getting an infection with perfect accuracy, but a joint decision was made between the patient and the surgeon/proceduralist to proceed at this time with the scheduled surgery/procedure as indicated on the consent form. Objective Data Vital Signs: Vital Signs Temp Pulse Resp BP Pulse Ox O2 Del Method O2 Flow Rate 98.1 F 102 H 20 H 109/75 97 Nasal Cannula 2 04/25/22 12:00 04/25/22 12:00 04/25/22 12:00 04/25/22 12:00 04/25/22 12:04/25/22 12:00 04/25/22 12:00 Oxygen Flow Rate (L/min) 2 Oxygen Delivery Method Nasal Cannula Weight: 109 lb 12.643 oz Body Mass Index (BMI) 18.8 Intake & Output: Intake and Output for Last 24 Hours 04/23/22 04/24/22 04/25/22 23:59 23:59 23:59 Intake Total 4846.66 / 4846.66 1060.43 / 1060.43 Output Total 550 / 550 Balance 4846.66 / 4846.66 510.43 / 510.43 Lab / Micro Data Result Diagrams: 04/25/22 04:04 04/25/22 04:04 Labs: Laboratory Results - last 24 hr 04/24/22 17:37: POC Glucose 158 H 04/24/22 21:18: Troponin I High Sens 1391 H* 04/24/22 23:27: Troponin I High Sens 1779 H* 04/24/22 23:27: PT 13.2, INR 1.0, APTT 34.7 04/24/22 23:28: POC Glucose 225 H 04/25/22 04:04: WBC 12.2 H, RBC 4.13 L, Hgb 12.5, Hct 41.3, MCV 100.0 H, MCH 30.3, MCHC 30.3 L, RDW Std Deviation 50.8 H, RDW Coeff of Tfifanie 13.8, Plt Count 321, MPV 10.1, Immature Gran % (Auto) 0.400, Neut % (Auto) 90.8 H, Lymph % (Auto) 6.1 L, [place] % (Auto) 2.5, Eos % (Auto) 0.0, Baso % (Auto) 0.2, Absolute Neuts (auto) 11.1 H, Absolute Lymphs (auto) 0.75 L, Nucleated RBC % 0 04/25/22 04:04: Sodium 146 H, Potassium 3.4 L, Chloride 116 H, Carbon Dioxide 17.0 L, Anion Gap 13, BUN 20 H, Creatinine 0.89, Estim Creat Clear Calc 53.13, Est GFR (MDRD) Af Amer 83, Est GFR (MDRD) Non-Af 69, BUN/Creatinine Ratio 22.5 H , Glucose 366 H, Calcium 8.4 L, Total Bilirubin 0.60, AST 99 H, ALT 21, Alkaline Phosphatase 100, Total Protein 7.1, Albumin 2.7 L, Globulin 4.4 H, Albumin/Globulin Ratio 0.6 L 04/25/22 04:04: Troponin I High Sens 4135 H* 04/25/22 06:22: POC Glucose 355 H 04/25/22 06:51: APTT 57.2 H 04/25/22 12:12: POC Glucose 339 H 04/25/22 12:55: APTT 30.0 Micro: Microbiology 04/24/22 04:45 Urine, Clean Catch Urine Culture - Preliminary Presumptive E. coli 04/24/22 01:55 Stool Enteric Bacteriology - Final 04/24/22 01:55 Stool C. difficile GDH Antigen & Toxins - Final 04/24/22 01:55 Stool C. difficile DNA Amplification - Final Cardiology Labs/Tests 04/24/22 23:27: PT 13.2, INR 1.0, APTT 34.7 04/25/22 04:04: WBC 12.2 H, RBC 4.13 L, Hgb 12.5, Hct 41.3, MCV 100.0 H, MCH 30.3, MCHC 30.3 L, Plt Count 321, MPV 10.1, Immature Gran % (Auto) 0.400, Neut % (Auto) 90.8 H, Lymph % (Auto) 6.1 L, [place] % (Auto) 2.5, Eos % (Auto) 0.0, Baso % (Auto) 0.2, Absolute Neuts (auto) 11.1 H, Nucleated RBC % 0 04/25/22 04:04: Sodium 146 H, Potassium 3.4 L, Chloride 116 H, Carbon Dioxide 17.0 L, Anion Gap 13, BUN 20 H, Creatinine 0.89, Est GFR (MDRD) Af Amer 83, Est GFR (MDRD) Non-Af 69, BUN/Creatinine Ratio 22.5 H, Glucose 366 H, Calcium 8.4 L, Total Bilirubin 0.60 04/25/22 06:51: APTT 57.2 H 04/25/22 12:55: APTT 30.0 Rhythm: Sinus rhythm EKG: As noted above ECHO: As noted below Stress Test: DATE OF SERVICE:? 06/13/2016 EXERCISE TOLERANCE TEST: The patient underwent pharmacologic (regadenoson) evaluation with a peak heart rate of 115 beats per minute (69% predicted maximum heart rate) and a peak blood pressure of 132/78 mmHg. The baseline ECG demonstrated sinus tachycardia.? The peak pharmacologic ECG demonstrated no obvious ECG changes. There was an isolated PVC during recovery. There was no report of chest discomfort during pharmacologic infusion or recovery. The examination was discontinued secondary to completion of protocol. IMPRESSION: 1.? Pharmacologic (regadenoson) evaluation. 2.? Peak pharmacologic ECG with no obvious ECG changes. 3.? Isolated PVC during recovery. 4.? Nuclear images pending. MYOCARDIAL PERFUSION IMAGING STUDY: TECHNIQUE: The patient was injected with 12.0 mCi of Tc99m Cardiolite and subsequently rest SPECT Cardiolite nuclear imaging was obtained in the horizontal long, vertical long an d short axes views.? The patient underwent pharmacologic (regadenoson) evaluation with a peak heart rate of 115 beats per minute (69% predicted maximum heart rate) and a peak blood pressure of 132/78 mmHg.? The patient was injected with 34.1 mCi of Tc99m Cardiolite and subsequently stress SPECT Cardiolite nuclear imaging was obtained in the horizontal long, vertical long and short axes views.? A gated Cardiolite study at peak stress was obtained. INTERPRETATION: Rest and stress SPECT Cardiolite nuclear imaging, status post realignment, normalization, and attenuation correction demonstrates the appearance of relative uniform tracer uptake and myocardial perfusion appearing within normal limits.? There is end systolic thickening and brightening.? The gated Cardiolite study demonstrates myocardial thickening and inward wall motion.? The reported LVEF was 61%. IMPRESSION: 1.? Rest and stress SPECT Cardiolite nuclear imaging demonstrate the appearance of relative uniform tracer uptake and myocardial perfusion appearing within normal limits. 2.? The gated Cardiolite study reports an LVEF of 61%. Cardiac Cath: 06-14-2016 Normal LV size, wall motion, and systolic function LVEF: 65% Normal left ventricular end-diastolic pressure [place] multivessel disease (especially of the small caliber LCx and very small caliber OM) Left main: Mild calcification LAD: Proximal: Mild calcification, mild luminal regularities Mid LAD: Mild luminal irregularities Diagonal branch 1: Proximal 25% stenosis LCx: Small caliber vessel LCx ostial: 50% stenosis LCx proximal: 50% stenosis LCx OM1: Mid-very small caliber vessel, mid 75% stenosis RCA: Proximal: Mild luminal regularities RCA: Mid: Mild calcification, eccentric 25% stenosis RCA: Distal: Mild luminal irregularities RCA: Right PDA: Proximal 25% stenosis, mid 25% stenosis RCA: Acute marginal: Mid 50% stenosis Radiography Diagnostic Testing: Radiology Impression Chest X-Ray 04/25/22 01:39 IMPRESSION: Pulmonary edema. Left lower lobe pneumonia. Electronically Signed: Sabine Hinojosa MD at 2:35 EDT , Echocardiogram 04/25/22 07:26 Interpretation Summary May also includeThe study was technically difficult. Severe segmental systolic dysfunction (see wall motion). The estimated ejection fraction is 20 %. The mitral valve chordae are thickened and/or calcified. Moderate (2+) eccentric mitral valve insufficiency. Mild tricuspid valve insufficiency. Mild focal aortic valve calcification. Right ventricular systolic pressure estimated to be 42 mmHg. Diastolic function is indeterminate. Comment: Based upon the 2D echocardiographic images of the left left ventricle with respect to regional wall motion abnormalities and overall LV systolic function the differential diagnosis may also include a Takotsubo syndrome. Ordering Physician: Ángel Posada Referring Physician: Chloé Mehta Performed By: Rupinder Dillard, RDCS, RVT
[2022-04-25] MEDS: Menthol/Lanolin/Calamine/Znox 113 GM Tube 1 APPLIC TOPICAL ×2 (16:29→23:41)
[2022-04-25 19:53] LABS: Partial Thromboplast Time 110.3 Seconds (24.1-36.2)
[2022-04-25 20:20] LABS: Bedside Glucose 307 mg/dL (74-106)
[2022-04-25 20:20] LABS: Bedside Glucose 342 mg/dL (74-106)
--- NOTE | 2022-04-25 21:20 | MDS.RN ---
pt was restless and very resistive to care. c/o difficulty breathing, but keep taking o2 off, LS clear, diminished at bases. placed HF o2 10L, but not getting good waveform on pulse ox monitor.
[2022-04-25] MEDS: Carvedilol 3.125 MG TABLET PO (23:40)
[2022-04-25] MEDS: Atorvastatin Calcium 40 MG Tablet PO (23:41)
[2022-04-25] MEDS: Amitriptyline 25 MG Tablet 50 MG PO (23:41)
[2022-04-26] VITALS (45 sets, daily range): BP systolic 65–140; BP diastolic 29–79; PULSE 78–129; RESP 18–31; TEMP 36.5–38.5; O2SAT 90–100; BMI 19.1
[2022-04-26 00:25] LABS: Bedside Glucose 318 mg/dL (74-106)
--- NOTE | 2022-04-26 02:27 | NURSING ---
pt very restless, tossing and turning in bed and not very cooperative. Pt is also pulling oxygen off and refuse to stay still for a BP check.
[2022-04-26] MEDS: Haloperidol Lactate 5 MG/ML Vial 1 MG IM (02:58)
--- NOTE | 2022-04-26 03:08 | NURSING ---
report given to ICU nurse and pt going to bed 6.
[2022-04-26 03:49] LABS: Absolute Lymphocyte Count 1.72 X10^3/uL (0.83-4.51); Absolute Neutrophil Count 16.4 X10^3/uL (2.0-7.7); Basophil# 0.02 X10^3/uL; Basophil% 0.1 % (0-1); Hematocrit 34.6 % (37-47); Hemoglobin 10.6 g/dL (12.0-15.0); Lymphocyte # 1.72 X10^3/ul (0.83-4.51); Lymphocyte % 8.7 % (19-41); Mean Corp Hgb Conc 30.6 g/dL (32-36); Mean Corpuscular Hgb 29.8 pg (27.0-32.0); Mean Corpuscular Volume 97.2 fL (81-99); Mean Platelet Vol. 10.3 fl (6.2-12.0); Monocyte# 1.47 X10^3/uL; Monocyte% 7.4 % (0-10); NRBC Flagged by Analyzer 0 % (0-5); Neutrophil # 16.44 X10^3/uL (2.7-7.7); Neutrophil % 83.1 % (47-70); Platelet Count 345 K/mm3 (150-450); RBC Distribution Width CV 14.2 % (11.6-14.6); RBC Distribution Width SD 50.2 fl (35.1-43.9); Red Blood Count 3.56 M/mm3 (4.2-5.4); White Blood Count 19.8 K/mm3 (4.4-11.0)
[2022-04-26 04:02] LABS: Partial Thromboplast Time 67.3 Seconds (24.1-36.2)
[2022-04-26 04:04] LABS: Anion Gap 11 (5-15); BUN 30 mg/dL (7-18); BUN/Creat Ratio 22.1 RATIO (10-20); Calcium,Total 8.7 mg/dL (8.5-10.1); Chloride 116 mmol/L (98-107); Creatinine, Serum 1.36 mg/dL (0.55-1.02); EST Glomerular Filtration Rate 42 mL/min (>60); Est Glom Filt Rate - Afr Amer 51 mL/min (>60); Estimated Creatinine Clearance 34.15 ml/min; Glucose 221 mg/dL (74-106); Potassium 3.9 mmol/L (3.5-5.1); Sodium Level 148 mmol/L (136-145)
[2022-04-26] MEDS: 0.9% Saline Lock 10 ML Syringe IV (04:07)
[2022-04-26] MEDS: Insulin Lispro 100 UNIT/ML INSULN.PEN SC ×4 (05:35→23:13)
[2022-04-26] MEDS: TITRATION PARAMETER CHANGE 1 EACH IV (05:35)
[2022-04-26 05:55] LABS: Bedside Glucose 204 mg/dL (74-106)
--- NOTE | 2022-04-26 08:31 | PCM.PN.CARD ---
Subjective Subjective The patient is currently in the ICU. She was transferred from the PCU to the ICU based upon concerns of agitation and hypotension according to the ICU staff. She was placed on IV sedation therapy and IV vasopressor therapy. She remains sedated. At the moment her IV vasopressor appears to be on hold. She appears to be resting relatively comfortably in the supine position. She is receiving O2 nasal cannula. Objective Data Vital Signs: Vital Signs Temp Pulse Resp BP Pulse Ox O2 Del Method O2 Flow Rate 101.0 F H 97 25 H 85/63 L 97 Nasal Cannula 7 04/26/22 08:00 04/26/22 08:00 04/26/22 08:00 04/26/22 08:30 04/26/22 08:00 04/26/22 08:21 04/26/22 08:21 FiO2 7 04/26/22 08:00 Oxygen Flow Rate (L/min) 7 Oxygen Delivery Method Nasal Cannula Weight: 111 lb 12.39 oz Body Mass Index (BMI) 19.1 Intake & Output: Intake and Output for Last 24 Hours 04/24/22 04/25/22 04/26/22 23:59 23:59 23:59 Intake Total 4846.66 / 4846.66 1336.08 / 1356.08 146.83 / 146.83 Output Total 800 / 800 125 / 125 Balance 4846.66 / 4846.66 536.08 / 556.08 21.83 / 21.83 Lab / Micro Data Result Diagrams: 04/26/22 03:40 04/26/22 03:40 Labs: Laboratory Results - last 24 hr 04/25/22 12:12: POC Glucose 339 H 04/25/22 12:55: APTT 30.0 04/25/22 16:25: POC Glucose 307 H 04/25/22 19:08: APTT 110.3 H* 04/25/22 19:50: POC Glucose 342 H 04/25/22 23:25: POC Glucose 318 H 04/26/22 03:40: WBC 19.8 H, RBC 3.56 L, Hgb 10.6 L, Hct 34.6 L, MCV 97.2, MCH 29.8, MCHC 30.6 L, RDW Std Deviation 50.2 H, RDW Coeff of Tiffanie 14.2, Plt Count 345, MPV 10.3, Immature Gran % (Auto) 0.700, Neut % (Auto) 83.1 H, Lymph % (Auto) 8.7 L, [place] % (Auto) 7.4, Eos % (Auto) 0.0, Baso % (Auto) 0.1, Absolute Neuts (auto) 16.4 H, Absolute Lymphs (auto) 1.72, Nucleated RBC % 0 04/26/22 03:40: Sodium 148 H, Potassium 3.9, Chloride 116 H, Carbon Dioxide 21.0, Anion Gap 11, BUN 30 H, Creatinine 1.36 H, Estim Creat Clear Calc 34.15, Est GFR (MDRD) Af Amer 51 L, Est GFR (MDRD) Non-Af 42 L, BUN/Creatinine Ratio 22.1 H, Glucose 221 H, Calcium 8.7 04/26/22 03:40: APTT 67.3 H 04/26/22 05:34: POC Glucose 204 H Micro: Microbiology 04/24/22 04:45 Urine, Clean Catch Urine Culture - Final Presumptive E. coli 04/24/22 01:55 Stool Enteric Bacteriology - Final 04/24/22 01:55 Stool C. difficile GDH Antigen & Toxins - Final 04/24/22 01:55 Stool C. difficile DNA Amplification - Final Cardiology Labs/Tests 04/25/22 12:55: APTT 30.0 04/25/22 19:08: APTT 110.3 H* 04/26/22 03:40: WBC 19.8 H, RBC 3.56 L, Hgb 10.6 L, Hct 34.6 L, MCV 97.2, MCH 29.8, MCHC 30.6 L, Plt Count 345, MPV 10.3, Immature Gran % (Auto) 0.700, Neut % (Auto) 83.1 H, Lymph % (Auto) 8.7 L, [place] % (Auto) 7.4, Eos % (Auto) 0.0, Baso % (Auto) 0.1, Absolute Neuts (auto) 16.4 H, Nucleated RBC % 0 04/26/22 03:40: Sodium 148 H, Potassium 3.9, Chloride 116 H, Carbon Dioxide 21.0, Anion Gap 11, BUN 30 H, Creatinine 1.36 H, Est GFR (MDRD) Af Amer 51 L, Est GFR (MDRD) Non-Af 42 L, BUN/Creatinine Ratio 22.1 H, Glucose 221 H, Calcium 8.7 04/26/22 03:40: APTT 67.3 H Rhythm: Sinus rhythm Radiography Diagnostic Testing: Radiology Impression Echocardiogram 04/25/22 07:26 Interpretation Summary May also includeThe study was technically difficult. Severe segmental systolic dysfunction (see wall motion). The estimated ejection fraction is 20 %. The mitral valve chordae are thickened and/or calcified. Moderate (2+) eccentric mitral valve insufficiency. Mild tricuspid valve insufficiency. Mild focal aortic valve calcification. Right ventricular systolic pressure estimated to be 42 mmHg. Diastolic function is indeterminate. Comment: Based upon the 2D echocardiographic images of the left left ventricle with respect to regional wall motion abnormalities and overall LV systolic function the differential diagnosis may also include a Takotsubo syndrome. Ordering Physician: Ángel Posada Referring Physician: Chloé Mehta Performed By: Rupinder Dillard, LILLY, RVT Physical Exam HEENT normocephalic and head/scalp atraumatic Neck no JVD Resp Resp Narrative: Scattered upper airway sounds Cardio regular rate, regular rhythm, S1 normal heart sound and S2 normal heart sound GI normal to inspection, nondistended, normoactive bowel sounds Extremity Extremity Narrative: Bilateral lower extremity amputee Assessment & Plan Assessment/Plan (1) NSTEMI, initial episode of care: PLAN: The patient has experienced a non-ST segment elevation [place]. At the present time there is a concern that this may not be a type I event secondary to an acute coronary event but it may be a type II event brought out by her acute noncardiovascular condition and her acute volume overload and potentially an underlying Takotsubo syndrome event. She is now in the ICU secondary to the aforementioned reasons. She is currently without IV vasopressor support. She continues on O2 nasal cannula. Medications that would lower her blood pressure are on hold. She continues with IV heparin. It may not be unreasonable to obtain a follow-up ECG to look for any obvious changes in comparison to her previous studies that would assist with further evaluation and care. As noted yesterday, the patient did not want to proceed with any further invasive evaluation or care from a cardiac standpoint including cardiac catheterization. (2) Takotsubo syndrome: PLAN: The patient has an underlying echocardiogram that in the differential diagnosis includes a Takotsubo syndrome event. Based upon the patient's previous cardiovascular history and her current events this may be a reasonable diagnosis to consider. At the moment based upon her hypotension medications that would potentially lower her blood pressure are on hold. (3) CHF (congestive heart failure): PLAN: The patient may have developed HF secondary to her IV volume treating her gastroenteritis and dehydration superimposed upon concerns of an underlying left ventricular systolic dysfunction/decreased LVEF potentially secondary to a Takotsubo syndrome. She appeared to improve from the CHF standpoint status post IV diuresis. She does need to be monitored for any concerns of hypovolemia that would warrant the need for additional gentle IV fluid resuscitation to assist with her blood pressure and hemodynamics. (4) HLD (hyperlipidemia): PLAN: The patient has a history of hyperlipidemia. She should continue risk factor evaluation and care and medical therapy with agents such as her atorvastatin. (5) PVD (peripheral vascular disease): PLAN: The patient has peripheral arterial occlusive disease. It appears this contributed to the loss of her lower extremities. She will need to continue to follow peripheral vascular surgery as deemed appropriate. (6) Diarrhea: PLAN: The patient presented for concerns of gastroenteritis thought secondary to an underlying infectious disease etiology. She does have a C. difficile antigen positive/toxin negative. At the moment she continues in isolation precautions. She will continue medical management per internal medicine. Addt'l Comments The patient's case was discussed and reviewed with the [facility] ICU staff. Comment: Time spent in the patient's evaluation, examination, review of medical records regarding the transition from the PCU to the ICU, placing orders, documentation, etc.: 37 minutes. Procedure Criteria Type of Procedure Procedure Type: Elective Elective Risks - COVID COVID Risk Discussion: The surgeon/proceduralist and patient have discussed in detail the risk of exposure to and/or potential harm posed by the COVID-19 virus with having a surgery/procedure at this time versus the risk of delaying the surgery/procedure. It is not possible to know either the risk of delaying the surgery or procedure or chance of getting an infection with perfect accuracy, but a joint decision was made between the patient and the surgeon/proceduralist to proceed at this time with the scheduled surgery/procedure as indicated on the consent form.
--- NOTE | 2022-04-26 08:44 | EKG12_ITS ---
Test Reason : AM EKG Blood Pressure : / mmHG Vent. Rate : 099 BPM Atrial Rate : 099 BPM P-R Int : 162 ms QRS Dur : 094 ms QT Int : 326 ms P-R-T Axes : 049 -54 208 degrees QTc Int : 418 ms Normal sinus rhythm Low voltage QRS Left anterior fascicular block Cannot rule out Anteroseptal infarct , age undetermined Abnormal ECG Confirmed by TYSON BECKFORD, ONEYDA ([id number]), associate entertainment editor MAKENNA ROMERO ([id number]) on 05/02/2022 8:48:43 AM Referred By: Confirmed By:ONEYDA MEHTA MD
[2022-04-26] MEDS: Aspirin 81 MG TAB.CHEW PO (10:53)
[2022-04-26] MEDS: Baclofen 10 MG Tablet PO (10:53)
[2022-04-26] MEDS: Clopidogrel Bisulfate 75 MG Tablet PO (10:54)
[2022-04-26] MEDS: Pantoprazole Sodium 20 MG Tablet PO (10:54)
[2022-04-26 11:35] LABS: Partial Thromboplast Time 79.3 Seconds (24.1-36.2)
--- NOTE | 2022-04-26 12:11 | PCM.PN.HOSP ---
Subjective Subjective Sedated overnight secondary to agitation as well as started on vasopressors for hypotension Objective Data Objective Data Vital Signs: Vital Signs Temp Pulse Resp BP Pulse Ox O2 Del Method O2 Flow Rate 100.3 F H 99 29 H 118/74 95 Nasal Cannula 7 04/26/22 10:00 04/26/22 11:00 04/26/22 11:00 04/26/22 11:00 04/26/22 11:00 04/26/22 11:00 04/26/22 11:00 FiO2 7 04/26/22 08:00 Oxygen Flow Rate (L/min) 7 Oxygen Delivery Method Nasal Cannula Weight: 111 lb 12.39 oz Body Mass Index (BMI) 19.1 Intake & Output: Intake and Output for Last 24 Hours 04/25/22 04/26/22 04/27/22 03:59 03:59 03:59 Intake Total 5846.66 / 5846.66 356.08 / 356.08 223.53 / 223.53 Output Total 800 / 800 175 / 175 Balance 5846.66 / 5846.66 -443.92 / -443.92 48.53 / 48.53 Lab / Micro Data Result Diagrams: 04/26/22 03:40 04/26/22 03:40 Labs: Laboratory Results - last 24 hr 04/25/22 12:12: POC Glucose 339 H 04/25/22 12:55: APTT 30.0 04/25/22 16:25: POC Glucose 307 H 04/25/22 19:08: APTT 110.3 H* 04/25/22 19:50: POC Glucose 342 H 04/25/22 23:25: POC Glucose 318 H 04/26/22 03:40: WBC 19.8 H, RBC 3.56 L, Hgb 10.6 L, Hct 34.6 L, MCV 97.2, MCH 29.8, MCHC 30.6 L, RDW Std Deviation 50.2 H, RDW Coeff of Tiffanie 14.2, Plt Count 345, MPV 10.3, Immature Gran % (Auto) 0.700, Neut % (Auto) 83.1 H, Lymph % (Auto) 8.7 L, [place] % (Auto) 7.4, Eos % (Auto) 0.0, Baso % (Auto) 0.1, Absolute Neuts (auto) 16.4 H, Absolute Lymphs (auto) 1.72, Nucleated RBC % 0 04/26/22 03:40: Sodium 148 H, Potassium 3.9, Chloride 116 H, Carbon Dioxide 21.0, Anion Gap 11, BUN 30 H, Creatinine 1.36 H, Estim Creat Clear Calc 34.15, Est GFR (MDRD) Af Amer 51 L, Est GFR (MDRD) Non-Af 42 L, BUN/Creatinine Ratio 22.1 H, Glucose 221 H, Calcium 8.7 04/26/22 03:40: APTT 67.3 H 04/26/22 05:34: POC Glucose 204 H 04/26/22 11:15: APTT 79.3 H Micro: Microbiology 04/24/22 03:30 Blood Culture (Wb) - Right Wrist Blood Culture - Preliminary No growth in 48 hours. 04/24/22 02:59 Blood Culture (Wb) - Venous Blood Culture - Preliminary No growth in 48 hours. 04/24/22 04:45 Urine, Clean Catch Urine Culture - Final Presumptive E. coli 04/24/22 01:55 Stool Enteric Bacteriology - Final 04/24/22 01:55 Stool C. difficile GDH Antigen & Toxins - Final 04/24/22 01:55 Stool C. 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 Acute encephalopathy and hypotension secondary to persistent diarrhea with acute gastroenteritis/JUDIT ? Infectious work-up is negative, there is no C. difficile toxin production, and she has not had any bowel movements in 2 days and she only received 2 doses of her oral vancomycin which is nowhere near enough to effectively treated an active C. difficile infection therefore I do continue to doubt this diagnosis ? Continue with Precedex ?We will hold IV fluids secondary to cardiomyopathy with an EF of 20% consistent with possible Takotsubo's ?UA is possibly consistent with a UTI she does have 50-80,000 CFU's of E. coli that is pansensitive given her fevers and a rise in her white count I do think it is reasonable to start treating her UTI 2. Chest pain/nonobstructive CAD/HTN/HLD/severe peripheral vascular disease ? She did have an elevated troponin overnight with EKG changes ? Echo with an EF of 20% with an RVSP of 42 mmHg, continue with the heparin drip ? Appreciate cardiology assistance ? We will continue to hold her blood pressure medications given her borderline systolics, vasopressors are also on hold ? Continue with her statin as well and as aspirin and Plavix 3. 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 Accu-Cheks every 6 with sliding scale insulin ? We will make adjustments as necessary 4. GERD ? Stable ? Continue with PPI 5. Anxiety/depression ? Stable ? Continue with her home medications Ativan was added to her regimen DVT: Heparin drip Charges/Coding Visit Charges Inpatient E&M: 55592 Subs Hosp L2
[2022-04-26 12:35] LABS: Bedside Glucose 183 mg/dL (74-106)
[2022-04-26] MEDS: Ceftriaxone 1 GM/50 ML BAG IV (12:56)
[2022-04-26 17:35] LABS: Bedside Glucose 198 mg/dL (74-106)
[2022-04-26] MEDS: HEPARIN/D5w 25,000 UNITS 25,000 UNITS/250 ML IV.SOLN. 6 UNITS CONT INF (18:20)
[2022-04-26 19:11] LABS: Partial Thromboplast Time 79.9 Seconds (24.1-36.2)
[2022-04-26] MEDS: Atorvastatin Calcium 40 MG Tablet PO (21:31)
[2022-04-26] MEDS: Menthol/Lanolin/Calamine/Znox 113 GM Tube 1 APPLIC TOPICAL (21:31)
--- NOTE | 2022-04-26 21:36 | NURSING ---
Pt offered tylenol for her fever, but is refusing because my mom is allergic to tylenol.
[2022-04-26] MEDS: Insulin Glargine-YFGN 100 UNIT/ML Pen 25 UNIT SC (23:13)
[2022-04-26 23:36] LABS: Bedside Glucose 196 mg/dL (74-106)
[2022-04-27] VITALS (35 sets, daily range): BP systolic 73–134; BP diastolic 51–80; PULSE 69–119; RESP 15–29; TEMP 36.3–38.1; O2SAT 90–100; BMI 19.2
[2022-04-27 01:57] LABS: Absolute Lymphocyte Count 2.05 X10^3/uL (0.83-4.51); Absolute Neutrophil Count 9.4 X10^3/uL (2.0-7.7); Basophil# 0.02 X10^3/uL; Basophil% 0.2 % (0-1); Hematocrit 31.9 % (37-47); Hemoglobin 9.9 g/dL (12.0-15.0); Lymphocyte # 2.05 X10^3/ul (0.83-4.51); Lymphocyte % 16.3 % (19-41); Mean Corpuscular Hgb 30.6 pg (27.0-32.0); Mean Corpuscular Volume 98.5 fL (81-99); Mean Platelet Vol. 10.4 fl (6.2-12.0); Monocyte# 1.05 X10^3/uL; Monocyte% 8.4 % (0-10); NRBC Flagged by Analyzer 0 % (0-5); Neutrophil # 9.38 X10^3/uL (2.7-7.7); Neutrophil % 74.5 % (47-70); Platelet Count 256 K/mm3 (150-450); RBC Distribution Width CV 14.4 % (11.6-14.6); RBC Distribution Width SD 51.3 fl (35.1-43.9); Red Blood Count 3.24 M/mm3 (4.2-5.4); White Blood Count 12.6 K/mm3 (4.4-11.0)
[2022-04-27 02:07] LABS: Partial Thromboplast Time 41.5 Seconds (24.1-36.2)
[2022-04-27 02:11] LABS: Anion Gap 6 (5-15); BUN 31 mg/dL (7-18); BUN/Creat Ratio 31.4 RATIO (10-20); Calcium,Total 8.4 mg/dL (8.5-10.1); Chloride 117 mmol/L (98-107); Creatinine, Serum 0.99 mg/dL (0.55-1.02); EST Glomerular Filtration Rate 61 mL/min (>60); Est Glom Filt Rate - Afr Amer 74 mL/min (>60); Estimated Creatinine Clearance 47.76 ml/min; Glucose 254 mg/dL (74-106); Potassium 3.7 mmol/L (3.5-5.1); Sodium Level 148 mmol/L (136-145)
[2022-04-27] MEDS: Insulin Lispro 100 UNIT/ML INSULN.PEN SC ×4 (05:31→21:29)
[2022-04-27] MEDS: 0.9% Saline Lock 10 ML Syringe IV ×3 (05:31→20:09)
[2022-04-27 06:01] LABS: Bedside Glucose 165 mg/dL (74-106)
--- NOTE | 2022-04-27 09:51 | PCM.PN.CARD ---
Subjective Subjective The patient appears to be much more awake and alert and interactive today. She denies any previous or ongoing chest discomfort. She denies any ongoing difficulty breathing related issues. Objective Data Vital Signs: Vital Signs Temp Pulse Resp BP Pulse Ox O2 Del Method O2 Flow Rate 100.0 F H 77 24 H 91/63 94 Nasal Cannula 10 04/27/22 08:00 04/27/22 08:00 04/27/22 08:00 04/27/22 08:00 04/27/22 08:00 04/27/22 08:00 04/27/22 08:00 FiO2 98 04/26/22 15:00 Oxygen Flow Rate (L/min) 10 Oxygen Delivery Method Nasal Cannula Weight: 112 lb 3.445 oz Body Mass Index (BMI) 19.2 Intake & Output: Intake and Output for Last 24 Hours 04/25/22 04/26/22 04/27/22 23:59 23:59 23:59 Intake Total 1336.08 / 1356.08 675.80 / 685.90 241.81 / 241.81 Output Total 800 / 800 380 / 380 135 / 135 Balance 536.08 / 556.08 295.80 / 305.90 106.81 / 106.81 Lab / Micro Data Result Diagrams: 04/27/22 01:52 04/27/22 01:52 Labs: Laboratory Results - last 24 hr 04/26/22 11:15: APTT 79.3 H 04/26/22 12:16: POC Glucose 183 H 04/26/22 17:14: POC Glucose 198 H 04/26/22 18:55: APTT 79.9 H 04/26/22 23:12: POC Glucose 196 H 04/27/22 01:52: WBC 12.6 H, RBC 3.24 L, Hgb 9.9 L, Hct 31.9 L, MCV 98.5, MCH 30.6, MCHC 31.0 L, RDW Std Deviation 51.3 H, RDW Coeff of [place]iffanie 14.4, Plt Count 256, MPV 10.4, Immature Gran % (Auto) 0.600, Neut % (Auto) 74.5 H, Lymph % (Auto) 16.3 L, [place] % (Auto) 8.4, Eos % (Auto) 0.0, Baso % (Auto) 0.2, Absolute Neuts (auto) 9.4 H, Absolute Lymphs (auto) 2.05, Nucleated RBC % 0 04/27/22 01:52: Sodium 148 H, Potassium 3.7, Chloride 117 H, Carbon Dioxide 25.0, Anion Gap 6, BUN 31 H, Creatinine 0.99, Estim Creat Clear Calc 47.76, Est GFR (MDRD) Af Amer 74, Est GFR (MDRD) Non-Af 61, BUN/Creatinine Ratio 31.4 H, Glucose 254 H, Calcium 8.4 L 04/27/22 01:52: APTT 41.5 H 04/27/22 05:29: POC Glucose 165 H Micro: Microbiology 04/24/22 03:30 Blood Culture (Wb) - Right Wrist Blood Culture - Preliminary No growth in 48 hours. 04/24/22 02:59 Blood Culture (Wb) - Venous Blood Culture - Preliminary No growth in 48 hours. 04/24/22 04:45 Urine, Clean Catch Urine Culture - Final Presumptive E. coli Cardiology Labs/Tests 04/26/22 11:15: APTT 79.3 H 04/26/22 18:55: APTT 79.9 H 04/27/22 01:52: WBC 12.6 H, RBC 3.24 L, Hgb 9.9 L, Hct 31.9 L, MCV 98.5, MCH 30.6, MCHC 31.0 L, Plt Count 256, MPV 10.4, Immature Gran % (Auto) 0.600, Neut % (Auto) 74.5 H, Lymph % (Auto) 16.3 L, [place] % (Auto) 8.4, Eos % (Auto) 0.0, Baso % (Auto) 0.2, Absolute Neuts (auto) 9.4 H, Nucleated RBC % 0 04/27/22 01:52: Sodium 148 H, Potassium 3.7, Chloride 117 H, Carbon Dioxide 25.0, Anion Gap 6, BUN 31 H, Creatinine 0.99, Est GFR (MDRD) Af Amer 74, Est GFR (MDRD) Non-Af 61, BUN/Creatinine Ratio 31.4 H, Glucose 254 H, Calcium 8.4 L 04/27/22 01:52: APTT 41.5 H Rhythm: Sinus rhythm Physical Exam Const alert, oriented x3 and no apparent distress Orientation / Consciousness: awake HEENT normocephalic and head/scalp atraumatic Neck no JVD Resp normal respiratory effort and clear to auscultation bilaterally Resp Narrative: Scattered upper airway sounds Cardio regular rate, regular rhythm, S1 normal heart sound and S2 normal heart sound GI normal to inspection, nondistended, normoactive bowel sounds Extremity Extremity Narrative: Bilateral lower extremity amputee Psych mental status grossly normal Assessment & Plan Assessment/Plan (1) NSTEMI, initial episode of care: PLAN: The patient has experienced a non-ST segment elevation [place]. At the present time there is a concern that this may not be a type I event secondary to an acute coronary event but it may be a type II event brought out by her acute noncardiovascular condition and her acute volume overload and potentially an underlying Takotsubo syndrome event. She remains in the ICU. Is currently on low-dose IV vasopressor support She continues on O2 nasal cannula. Medications that would lower her blood pressure are on hold. She continues with IV heparin. Her follow-up ECG demonstrated sinus rhythm and anteroseptal AK pattern of indeterminate age with no additional acute changes. The patient previously reported she did not want to proceed with additional evaluation with diagnostic cardiac catheterization. She states depending upon her clinical course she may reconsider her position on this issue. (2) Takotsubo syndrome: PLAN: The patient has an underlying echocardiogram that in the differential diagnosis includes a Takotsubo syndrome event. Based upon the patient's previous cardiovascular history and her current events this may be a reasonable diagnosis to consider. At the moment based upon her hypotension medications that would potentially lower her blood pressure are on hold. Hopefully as her clinical course stabilizes she will be able to initiate medical therapy such as beta-blockers and afterload reducing agents. It would not be unreasonable in the future to consider a follow-up echocardiogram to reassess her left ventricular wall motion and systolic function. Again she previously declined additional evaluation with diagnostic cardiac catheterization. As noted above she states she may reconsider her position on this issue depending upon how her clinical course progresses. (3) CHF (congestive heart failure): PLAN: The patient may have developed HF secondary to her IV volume treating her gastroenteritis and dehydration superimposed upon concerns of an underlying left ventricular systolic dysfunction/decreased LVEF potentially secondary to a Takotsubo syndrome. She appeared to improve from the CHF standpoint status post IV diuresis. She does need to be monitored for any concerns of hypovolemia that would warrant the need for additional gentle IV fluid resuscitation to assist with her blood pressure and hemodynamics. (4) HLD (hyperlipidemia): PLAN: The patient has a history of hyperlipidemia. She should continue risk factor evaluation and care and medical therapy with agents such as her atorvastatin. (5) PVD (peripheral vascular disease): PLAN: The patient has peripheral arterial occlusive disease. It appears this contributed to the loss of her lower extremities. She will need to continue to follow peripheral vascular surgery as deemed appropriate. (6) Diarrhea: PLAN: The patient presented for concerns of gastroenteritis thought secondary to an underlying infectious disease etiology. She does have a C. difficile antigen positive/toxin negative. She is now out of isolation precautions. She will continue medical management per internal medicine. Addt'l Comments The patient's case was discussed and reviewed with the patient and the [facility] ICU team. Comment: Time spent the patient's evaluation, examination, review of medical records, review of electrocardiograms, question and answers, discussion, documentation, etc.: 37 minutes. Procedure Criteria Type of Procedure Procedure Type: Elective Elective Risks - COVID COVID Risk Discussion: The surgeon/proceduralist and patient have discussed in detail the risk of exposure to and/or potential harm posed by the COVID-19 virus with having a surgery/procedure at this time versus the risk of delaying the surgery/procedure. It is not possible to know either the risk of delaying the surgery or procedure or chance of getting an infection with perfect accuracy, but a joint decision was made between the patient and the surgeon/proceduralist to proceed at this time with the scheduled surgery/procedure as indicated on the consent form.
--- NOTE | 2022-04-27 09:58 | PCM.PN.HOSP ---
Subjective Subjective No issues overnight, she continues to have higher oxygen requirements Objective Data Objective Data Vital Signs: Vital Signs Temp Pulse Resp BP Pulse Ox O2 Del Method O2 Flow Rate 100.0 F H 77 24 H 91/63 94 Nasal Cannula 10 04/27/22 08:00 04/27/22 08:00 04/27/22 08:00 04/27/22 08:00 04/27/22 08:00 04/27/22 08:00 04/27/22 08:00 FiO2 98 04/26/22 15:00 Oxygen Flow Rate (L/min) 10 Oxygen Delivery Method Nasal Cannula Weight: 112 lb 3.445 oz Body Mass Index (BMI) 19.2 Intake & Output: Intake and Output for Last 24 Hours 04/26/22 04/27/22 04/28/22 03:59 03:59 03:59 Intake Total 356.08 / 356.08 725.05 / 732.78 172.56 / 172.56 Output Total 800 / 800 380 / 380 135 / 135 Balance -443.92 / -443.92 345.05 / 352.78 37.56 / 37.56 Lab / Micro Data Result Diagrams: 04/27/22 01:52 04/27/22 01:52 Labs: Laboratory Results - last 24 hr 04/26/22 11:15: APTT 79.3 H 04/26/22 12:16: POC Glucose 183 H 04/26/22 17:14: POC Glucose 198 H 04/26/22 18:55: APTT 79.9 H 04/26/22 23:12: POC Glucose 196 H 04/27/22 01:52: WBC 12.6 H, RBC 3.24 L, Hgb 9.9 L, Hct 31.9 L, MCV 98.5, MCH 30.6, MCHC 31.0 L, RDW Std Deviation 51.3 H, RDW Coeff of Tiffanie 14.4, Plt Count 256, MPV 10.4, Immature Gran % (Auto) 0.600, Neut % (Auto) 74.5 H, Lymph % (Auto) 16.3 L, [place] % (Auto) 8.4, Eos % (Auto) 0.0, Baso % (Auto) 0.2, Absolute Neuts (auto) 9.4 H, Absolute Lymphs (auto) 2.05, Nucleated RBC % 0 04/27/22 01:52: Sodium 148 H, Potassium 3.7, Chloride 117 H, Carbon Dioxide 25.0, Anion Gap 6, BUN 31 H, Creatinine 0.99, Estim Creat Clear Calc 47.76, Est GFR (MDRD) Af Amer 74, Est GFR (MDRD) Non-Af 61, BUN/Creatinine Ratio 31.4 H, Glucose 254 H, Calcium 8.4 L 04/27/22 01:52: APTT 41.5 H 04/27/22 05:29: POC Glucose 165 H Micro: Microbiology 04/24/22 03:30 Blood Culture (Wb) - Right Wrist Blood Culture - Preliminary No growth in 48 hours. 04/24/22 02:59 Blood Culture (Wb) - Venous Blood Culture - Preliminary No growth in 48 hours. 04/24/22 04:45 Urine, Clean Catch Urine Culture - Final Presumptive E. coli 04/24/22 01:55 Stool Enteric Bacteriology - Final 04/24/22 01:55 Stool C. difficile GDH Antigen & Toxins - Final 04/24/22 01:55 Stool C. 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 Acute encephalopathy and cardiogenic shock/JUDIT ? Infectious work-up is negative, there is no C. difficile toxin production, and she has not had any bowel movements in 2 days and she only received 2 doses of her oral vancomycin which is nowhere near enough to effectively treated an active C. difficile infection therefore I do continue to doubt this diagnosis ? Continue with Precedex ? Was started on norepinephrine we will trial her on Lasix today ?We will hold IV fluids secondary to cardiomyopathy with an EF of 20% consistent with possible Takotsubo's ?UA is possibly consistent with a UTI she does have 50-80,000 CFU's of E. coli that is pansensitive given her fevers and a rise in her white count I do think it is reasonable to start treating her UTI, if diarrhea picks up we will try to treat her with p.o. vancomycin however she was refusing multiple doses previously 2. Chest pain/nonobstructive CAD/HTN/HLD/severe peripheral vascular disease ? She did have an elevated troponin overnight with EKG changes ? Echo with an EF of 20% with an RVSP of 42 mmHg, continue with the heparin drip ? Appreciate cardiology assistance ? We will continue to hold her blood pressure medications given her borderline systolics, vasopressors are also on hold ? Continue with her statin as well and as aspirin and Plavix 3. 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 Accu-Cheks every 6 with sliding scale insulin ? We will make adjustments as necessary 4. GERD ? Stable ? Continue with PPI 5. Anxiety/depression ? Stable ? Continue with her home medications Ativan was added to her regimen DVT: Heparin drip Charges/Coding Visit Charges Inpatient E&M: 86985 Subs Hosp L2
[2022-04-27] MEDS: Clopidogrel Bisulfate 75 MG Tablet PO (10:11)
[2022-04-27] MEDS: Pantoprazole Sodium 20 MG Tablet PO (10:11)
[2022-04-27] MEDS: Aspirin 81 MG TAB.CHEW PO (10:11)
[2022-04-27] MEDS: Baclofen 10 MG Tablet PO (10:11)
[2022-04-27] MEDS: Insulin Glargine-YFGN 100 UNIT/ML Pen 25 UNIT SC ×2 (10:11→21:56)
[2022-04-27] MEDS: Furosemide 40 MG/4 ML Vial 20 MG IV (10:12)
[2022-04-27] MEDS: Fluticasone 0.05% 1 SPRAY NASAL.SRY 2 SPRAY NASAL (10:12)
[2022-04-27] MEDS: Menthol/Lanolin/Calamine/Znox 113 GM Tube 1 APPLIC TOPICAL ×4 (10:12→21:59)
[2022-04-27 10:40] LABS: Partial Thromboplast Time 65.7 Seconds (24.1-36.2)
[2022-04-27] MEDS: Ceftriaxone 1 GM/50 ML BAG IV (10:52)
[2022-04-27 13:00] LABS: Bedside Glucose 153 mg/dL (74-106)
--- NOTE | 2022-04-27 13:21 | CASEMGMT ---
BROOKE sent updates to [facility]. BROOKE also changed patient's pharmacy to [facility] as this is who [facility] uses for their residents. Tia AYALA
[2022-04-27 17:35] LABS: Bedside Glucose 178 mg/dL (74-106)
[2022-04-27] MEDS: Ondansetron 4 MG/2 ML Vial IV (20:09)
[2022-04-27 21:46] LABS: Bedside Glucose 234 mg/dL (74-106)
[2022-04-27] MEDS: MELATONIN 3 MG TABLET PO (21:55)
[2022-04-27] MEDS: Atorvastatin Calcium 40 MG Tablet PO (21:56)
[2022-04-27] MEDS: Amitriptyline 25 MG Tablet 50 MG PO (21:56)
[2022-04-27] MEDS: Albuterol 2.5 MG/3 ML VIAL.NEB. INHALATION (22:00)
[2022-04-28] VITALS (16 sets, daily range): BP systolic 89–122; BP diastolic 61–85; PULSE 88–113; RESP 16–28; TEMP 36.4–36.8; O2SAT 90–100; BMI 19.0
[2022-04-28] MEDS: Lidocaine 5% Patch 2 PATCH TOPICAL (01:30)
[2022-04-28] MEDS: traMADol 50 MG Tablet PO ×2 (03:25→22:35)
[2022-04-28] MEDS: 0.9% Saline Lock 10 ML Syringe IV ×2 (03:40→08:22)
[2022-04-28 03:49] LABS: Absolute Lymphocyte Count 2.13 X10^3/uL (0.83-4.51); Absolute Neutrophil Count 7.4 X10^3/uL (2.0-7.7); Basophil# 0.01 X10^3/uL; Basophil% 0.1 % (0-1); Hematocrit 29.6 % (37-47); Hemoglobin 9.2 g/dL (12.0-15.0); Lymphocyte # 2.13 X10^3/ul (0.83-4.51); Lymphocyte % 20.4 % (19-41); Mean Corp Hgb Conc 31.1 g/dL (32-36); Mean Corpuscular Hgb 30.4 pg (27.0-32.0); Mean Corpuscular Volume 97.7 fL (81-99); Mean Platelet Vol. 10.6 fl (6.2-12.0); Monocyte# 0.86 X10^3/uL; Monocyte% 8.2 % (0-10); NRBC Flagged by Analyzer 0 % (0-5); Neutrophil # 7.38 X10^3/uL (2.7-7.7); Neutrophil % 70.8 % (47-70); Platelet Count 243 K/mm3 (150-450); RBC Distribution Width CV 14.3 % (11.6-14.6); RBC Distribution Width SD 50.6 fl (35.1-43.9); Red Blood Count 3.03 M/mm3 (4.2-5.4); White Blood Count 10.4 K/mm3 (4.4-11.0)
[2022-04-28 04:01] LABS: Partial Thromboplast Time 60.4 Seconds (24.1-36.2)
[2022-04-28 04:05] LABS: Anion Gap 9 (5-15); BUN 43 mg/dL (7-18); BUN/Creat Ratio 35.2 RATIO (10-20); Calcium,Total 8.4 mg/dL (8.5-10.1); Chloride 108 mmol/L (98-107); Creatinine, Serum 1.22 mg/dL (0.55-1.02); EST Glomerular Filtration Rate 48 mL/min (>60); Est Glom Filt Rate - Afr Amer 58 mL/min (>60); Estimated Creatinine Clearance 38.91 ml/min; Glucose 273 mg/dL (74-106); Sodium Level 141 mmol/L (136-145)
[2022-04-28] MEDS: Potassium Chloride Oral Tablet 20 MEQ 40 MEQ PO (06:34)
[2022-04-28] MEDS: Aspirin 81 MG TAB.CHEW PO (08:22)
[2022-04-28] MEDS: Furosemide 20 MG/2 ML VIAL IV (08:22)
[2022-04-28] MEDS: Ceftriaxone 1 GM/50 ML BAG IV (08:22)
[2022-04-28] MEDS: Fluticasone 0.05% 1 SPRAY NASAL.SRY 2 SPRAY NASAL (08:23)
[2022-04-28] MEDS: Insulin Glargine-YFGN 100 UNIT/ML Pen 25 UNIT SC ×2 (08:23→21:17)
[2022-04-28] MEDS: Menthol/Lanolin/Calamine/Znox 113 GM Tube 1 APPLIC TOPICAL ×3 (08:23→21:19)
[2022-04-28] MEDS: Insulin Lispro 100 UNIT/ML INSULN.PEN SC ×2 (08:24→21:18)
[2022-04-28] MEDS: Clopidogrel Bisulfate 75 MG Tablet PO (08:24)
[2022-04-28] MEDS: Baclofen 10 MG Tablet PO (08:24)
[2022-04-28] MEDS: Pantoprazole Sodium 20 MG Tablet PO (08:25)
--- NOTE | 2022-04-28 08:53 | PCM.PN.HOSP ---
Subjective Subjective Feels much better today no issues overnight. She is maintaining her oxygen saturations on room air Objective Data Objective Data Vital Signs: Vital Signs Temp Pulse Resp BP Pulse Ox O2 Del Method O2 Flow Rate 98.0 F 103 H 21 H 92/67 90 Room Air 5 04/28/22 08:00 04/28/22 08:00 04/28/22 08:00 04/28/22 08:00 04/28/22 08:00 04/28/22 08:00 04/27/22 14:00 FiO2 98 04/26/22 15:00 Oxygen Flow Rate (L/min) 5 Oxygen Delivery Method Room Air Weight: 110 lb 14.28 oz Body Mass Index (BMI) 19.0 Intake & Output: Intake and Output for Last 24 Hours 04/27/22 04/28/22 04/29/22 03:59 03:59 03:59 Intake Total 725.05 / 732.78 508.22 / 508.22 53.2 / 53.2 Output Total 380 / 380 505 / 505 Balance 345.05 / 352.78 3.22 / 3.22 53.2 / 53.2 Lab / Micro Data Result Diagrams: 04/28/22 03:40 04/28/22 03:40 Labs: Laboratory Results - last 24 hr 04/27/22 10:15: APTT 65.7 H 04/27/22 12:29: POC Glucose 153 H 04/27/22 17:15: POC Glucose 178 H 04/27/22 21:21: POC Glucose 234 H 04/28/22 03:40: WBC 10.4, RBC 3.03 L, Hgb 9.2 L, Hct 29.6 L, MCV 97.7, MCH 30.4, MCHC 31.1 L, RDW Std Deviation 50.6 H, RDW Coeff of Tiffanie 14.3, Plt Count 243, MPV 10.6, Immature Gran % (Auto) 0.500, Neut % (Auto) 70.8 H, Lymph % (Auto) 20.4, [place] % (Auto) 8.2, Eos % (Auto) 0.0, Baso % (Auto) 0.1, Absolute Neuts (auto) 7.4, Absolute Lymphs (auto) 2.13, Nucleated RBC % 0 04/28/22 03:40: Sodium 141, Potassium 3.0 L, Chloride 108 H, Carbon Dioxide 24.0, Anion Gap 9, BUN 43 H, Creatinine 1.22 H, Estim Creat Clear Calc 38.91, Est GFR (MDRD) Af Amer 58 L, Est GFR (MDRD) Non-Af 48 L, BUN/Creatinine Ratio 35.2 H, Glucose 273 H, Calcium 8.4 L 04/28/22 03:40: APTT 60.4 H Micro: Microbiology 04/24/22 03:30 Blood Culture (Wb) - Right Wrist Blood Culture - Preliminary No growth in 48 hours. 04/24/22 02:59 Blood Culture (Wb) - Venous Blood Culture - Preliminary No growth in 48 hours. 04/24/22 04:45 Urine, Clean Catch Urine Culture - Final Presumptive E. coli 04/24/22 01:55 Stool Enteric Bacteriology - Final 04/24/22 01:55 Stool C. difficile GDH Antigen & Toxins - Final 04/24/22 01:55 Stool C. 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 Acute metabolic encephalopathy and cardiogenic shock/JUDIT ? Infectious work-up is negative, there is no C. difficile toxin production, and she has not had any bowel movements in 2 days and she only received 2 doses of her oral vancomycin which is nowhere near enough to effectively treated an active C. difficile infection therefore I do continue to doubt this diagnosis ?Precedex and norepinephrine are discontinued ?She feels better after dose of Lasix yesterday we will give her another dose today ?We will hold IV fluids secondary to cardiomyopathy with an EF of 20% consistent with possible Takotsubo's ?UA is possibly consistent with a UTI she does have 50-80,000 CFU's of E. coli that is pansensitive given her fevers and a rise in her white count I do think it is reasonable to start treating her UTI, if diarrhea picks up we will try to treat her with p.o. vancomycin however she was refusing multiple doses previously 2. Chest pain/nonobstructive CAD/HTN/HLD/severe peripheral vascular disease ? She did have an elevated troponin overnight with EKG changes ? Echo with an EF of 20% with an RVSP of 42 mmHg, continue with the heparin drip ? Appreciate cardiology assistance, will discuss cessation of the heparin drip ? She did refuse heart cath ? We will continue to hold her blood pressure medications given her borderline systolics, vasopressors are also on hold ? Continue with her statin as well and as aspirin and Plavix 3. 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 Accu-Cheks every 6 with sliding scale insulin ? We will make adjustments as necessary 4. GERD ? Stable ? Continue with PPI 5. Anxiety/depression ? Stable ? Continue with her home medications Ativan was added to her regimen DVT: Heparin drip Charges/Coding Visit Charges Inpatient E&M: 20147 Subs Hosp L2
[2022-04-28 09:01] LABS: Bedside Glucose 152 mg/dL (74-106)
[2022-04-28 09:31] LABS: Magnesium 1.7 mg/dL (1.6-2.6); Phosphorus 2.5 mg/dL (2.5-4.9)
[2022-04-28 12:10] LABS: Bedside Glucose 134 mg/dL (74-106)
--- NOTE | 2022-04-28 15:41 | CASEMGMT ---
Social Work BROOKE met with pt who confirms she plans to return to [facility] at discharge. BROOKE faxed therapy notes and update that pt may be ready for discharge over the weekend to [facility]. Pt has services through [facility] and Aide Miller is her Baggagemaster, [facility] notified of admission and discharge summary to be faxed at appropriate time. Plan: Return to [facility] when medically ready VICKI Urias
--- NOTE | 2022-04-28 17:05 | CASEMGMT ---
Social Work SW spoke with Carlyle Moe who states pt cannot return over the weekend. Pt will not be permitted to admit until Sunday as [facility]'s Policy is no weekend admissions. SW clarified that pt is not a new admission but [facility] is her home. [facility] continues to states this does not matter and pt cannot return until Sunday. Plan: Carlyle REDDING. Pt will only be accepted back Sunday thru Sunday VICKI Urias
[2022-04-28 17:06] LABS: Bedside Glucose 102 mg/dL (74-106)
[2022-04-28] MEDS: Atorvastatin Calcium 40 MG Tablet PO (21:18)
[2022-04-28 21:55] LABS: Bedside Glucose 167 mg/dL (74-106)
[2022-04-29 01:18] VITALS: BP 121/63; PULSE 88; RESP 18; TEMP 36.7; O2SAT 95
[2022-04-29] MEDS: Amitriptyline 25 MG Tablet 50 MG PO (01:19)
[2022-04-29 05:51] VITALS: BMI 18.9
[2022-04-29 06:23] VITALS: BP 105/65; PULSE 91; RESP 18; TEMP 36.9; O2SAT 94
[2022-04-29 06:55] LABS: Bedside Glucose 79 mg/dL (74-106)
[2022-04-29 08:27] LABS: Absolute Lymphocyte Count 1.58 X10^3/uL (0.83-4.51); Absolute Neutrophil Count 7.5 X10^3/uL (2.0-7.7); Basophil# 0.03 X10^3/uL; Basophil% 0.3 % (0-1); Eosinophil# 0.07 X10^3/uL; Eosinophils% 0.7 % (0-5); Hematocrit 34.1 % (37-47); Hemoglobin 10.6 g/dL (12.0-15.0); Lymphocyte # 1.58 X10^3/ul (0.83-4.51); Lymphocyte % 15.4 % (19-41); Mean Corp Hgb Conc 31.1 g/dL (32-36); Mean Corpuscular Hgb 30.5 pg (27.0-32.0); Mean Corpuscular Volume 98.3 fL (81-99); Mean Platelet Vol. 10.8 fl (6.2-12.0); Monocyte% 9.8 % (0-10); NRBC Flagged by Analyzer 0 % (0-5); Neutrophil # 7.48 X10^3/uL (2.7-7.7); Neutrophil % 72.9 % (47-70); Platelet Count 276 K/mm3 (150-450); RBC Distribution Width CV 14.7 % (11.6-14.6); RBC Distribution Width SD 52.4 fl (35.1-43.9); Red Blood Count 3.47 M/mm3 (4.2-5.4); White Blood Count 10.3 K/mm3 (4.4-11.0)
[2022-04-29 08:29] VITALS: O2SAT 93
[2022-04-29] MEDS: Clopidogrel Bisulfate 75 MG Tablet PO (09:02)
[2022-04-29] MEDS: Baclofen 10 MG Tablet PO (09:02)
[2022-04-29] MEDS: Pantoprazole Sodium 20 MG Tablet PO (09:02)
[2022-04-29] MEDS: Lidocaine 5% Patch 2 PATCH TOPICAL (09:03)
[2022-04-29] MEDS: Aspirin 81 MG TAB.CHEW PO (09:03)
[2022-04-29] MEDS: Fluticasone 0.05% 1 SPRAY NASAL.SRY 2 SPRAY NASAL (09:03)
[2022-04-29] MEDS: Menthol/Lanolin/Calamine/Znox 113 GM Tube 1 APPLIC TOPICAL ×3 (09:03→16:48)
[2022-04-29 09:06] LABS: Partial Thromboplast Time 30.7 Seconds (24.1-36.2)
[2022-04-29] MEDS: Ceftriaxone 1 GM/50 ML BAG IV (09:07)
[2022-04-29] MEDS: 0.9% Saline Lock 10 ML Syringe IV ×2 (09:10→21:14)
[2022-04-29 09:11] LABS: Anion Gap 10 (5-15); BUN 30 mg/dL (7-18); BUN/Creat Ratio 37.2 RATIO (10-20); Calcium,Total 8.4 mg/dL (8.5-10.1); Chloride 108 mmol/L (98-107); Creatinine, Serum 0.81 mg/dL (0.55-1.02); EST Glomerular Filtration Rate 77 mL/min (>60); Est Glom Filt Rate - Afr Amer 93 mL/min (>60); Estimated Creatinine Clearance 57.57 ml/min; Glucose 72 mg/dL (74-106); Sodium Level 142 mmol/L (136-145)
[2022-04-29 09:13] VITALS: BP 107/66; PULSE 108; RESP 18; TEMP 36.7; O2SAT 100
[2022-04-29 11:26] LABS: Bedside Glucose 147 mg/dL (74-106)
--- NOTE | 2022-04-29 12:50 | PN_ITS ---
Subjective Subjective Patient seen and examined. She had no complaints. She hadnt had any more chest pain overnight. She denied any fever, chills, chest pain, palpitaitons, dizziness, nausea, vomiting or diarrhea. Reivew of systems is otherwise negative. She says she is willing to have cardiac cath, and is scheduled to have it on Sunday. Objective Data Objective Data Vital Signs: Vital Signs Temp Pulse Resp BP Pulse Ox O2 Del Method O2 Flow Rate 98.1 F 108 H 18 107/66 100 Room Air 5 04/29/22 09:13 04/29/22 09:13 04/29/22 09:13 04/29/22 09:13 04/29/22 09:13 04/29/22 09:13 04/27/22 14:00 FiO2 98 04/26/22 15:00 Oxygen Flow Rate (L/min) 5 Oxygen Delivery Method Room Air Weight: 110 lb 3.698 oz Body Mass Index (BMI) 18.9 Intake & Output: Intake and Output for Last 24 Hours 04/27/22 04/28/22 04/29/22 23:59 23:59 23:59 Intake Total 577.47 / 577.47 255.5 / 405.5 440 / 440 Output Total 505 / 505 400 / 400 Balance 72.47 / 72.47 -144.5 / 5.5 440 / 440 Lab / Micro Data Result Diagrams: 04/29/22 07:40 04/29/22 07:40 Labs: Laboratory Results - last 24 hr 04/28/22 16:46: POC Glucose 102 04/28/22 21:14: POC Glucose 167 H 04/29/22 06:22: POC Glucose 79 04/29/22 07:40: APTT 30.7 04/29/22 07:40: WBC 10.3, RBC 3.47 L, Hgb 10.6 L, Hct 34.1 L, MCV 98.3, MCH 30.5, MCHC 31.1 L, RDW Std Deviation 52.4 H, RDW Coeff of Tiffanie 14.7 H, Plt Count 276, MPV 10.8, Immature Gran % (Auto) 0.900, Neut % (Auto) 72.9 H, Lymph % (Auto) 15.4 L, [place] % (Auto) 9.8, Eos % (Auto) 0.7, Baso % (Auto) 0.3, Absolute Neuts (auto) 7.5, Absolute Lymphs (auto) 1.58, Nucleated RBC % 0 04/29/22 07:40: Sodium 142, Potassium 3.0 L, Chloride 108 H, Carbon Dioxide 24.0, Anion Gap 10, BUN 30 H, Creatinine 0.81, Estim Creat Clear Calc 57.57, Est GFR (MDRD) Af Amer 93, Est GFR (MDRD) Non-Af 77, BUN/Creatinine Ratio 37.2 H, Glucose 72 L, Calcium 8.4 L 04/29/22 11:06: POC Glucose 147 H Micro: Microbiology 04/24/22 03:30 Blood Culture (Wb) - Right Wrist Blood Culture - Final No growth in 5 days. 04/24/22 02:59 Blood Culture (Wb) - Venous Blood Culture - Final No growth in 5 days. 04/24/22 04:45 Urine, Clean Catch Urine Culture - Final Presumptive E. coli 04/24/22 01:55 Stool Enteric Bacteriology - Final 04/24/22 01:55 Stool C. difficile GDH Antigen & Toxins - Final 04/24/22 01:55 Stool C. difficile DNA Amplification - Final Physical Exam Const alert and oriented x3 HEENT normocephalic, head/scalp atraumatic and moist oral mucous membranes Eyes PERRL and EOMs intact bilaterally Neck no lymphadenopathy, supple and no JVD Lymph Lymphatic: no lymphadenopathy noted and no lymphedema noted Resp normal respiratory effort, normal air movement and clear to auscultation bilaterally Cardio regular rate, regular rhythm, S1 normal heart sound, S2 normal heart sound and no murmurs GI normal to inspection, nondistended, normoactive bowel sounds, soft to palpation, non-tender and non-distended Extremity normal capillary refill Extremity Narrative: bilateral AKA Skin General Skin Exam: no breakdown Neuro CN's II-XII intact bilaterally, no focal motor deficits, no sensory deficits noted and deep tendon reflexes 2+ bilaterally Psych thought process normal Assessment & Plan Assessment/Plan (1) NSTEMI, initial episode of care: (2) CHF (congestive heart failure): PLAN: Plan #Nonstemi * doesnt have any chest pain * 2D echo showed EF of 20% with RVSP of 42mmhg * now off heparin drip * to have cardiac cath on Sunday * on aspirin, high intensity statin and plavix. 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 Accuchecks ACHS * on lantus 25 units daily * * #GERD; on PPI #Anxiety and depression; on ativan prn. #Hypertension: BP meds held due to cardiogenic shock #Cardiogenic shock: resolved. Off pressors. #JUDIT: resolved. CR down to 0.81 #UTI: on ceftriaxone. Urine cultrue pending DVT prophylaxis:start lovenox Charges/Coding Visit Charges Inpatient E&M: 90621 Subs Hosp L2
[2022-04-29] MEDS: traMADol 50 MG Tablet PO (12:57)
[2022-04-29 15:19] VITALS: BP 93/63; PULSE 109; RESP 16; TEMP 36.9; O2SAT 100
[2022-04-29] MEDS: Insulin Lispro 100 UNIT/ML INSULN.PEN SC ×2 (16:48→21:14)
[2022-04-29 17:11] LABS: Bedside Glucose 236 mg/dL (74-106)
[2022-04-29] MEDS: Atorvastatin Calcium 40 MG Tablet PO (21:13)
[2022-04-29] MEDS: Insulin Glargine-YFGN 100 UNIT/ML Pen 25 UNIT SC (21:14)
[2022-04-29 21:15] VITALS: BP 101/68; PULSE 105; RESP 18; TEMP 37.1; O2SAT 99
[2022-04-29] MEDS: MELATONIN 3 MG TABLET PO (21:19)
[2022-04-29 22:05] LABS: Bedside Glucose 372 mg/dL (74-106)
--- NOTE | 2022-04-29 23:00 | EKG12_ITS ---
Test Reason : CHEST PAIN Blood Pressure : / mmHG Vent. Rate : 104 BPM Atrial Rate : 104 BPM P-R Int : 142 ms QRS Dur : 126 ms QT Int : 334 ms P-R-T Axes : 058 -48 110 degrees QTc Int : 439 ms Sinus tachycardia Left axis deviation Non-specific intra-ventricular conduction block Cannot rule out Anterior infarct , age undetermined Abnormal ECG Confirmed by TYSON BECKFORD, ONEYDA ([id number]), food expeditor MAKENNA ROMERO ([id number]) on 05/02/2022 8:48:56 AM Referred By: SOLEDAD Confirmed By:ONEYDA MEHTA MD
--- NOTE | 2022-04-29 23:35 | RAD_ITS ---
INDICATION: Shortness of breath EXAMINATION: Frontal view of the chest COMPARISON: Chest x-ray April 25, 2022. FINDINGS: Frontal view of the chest was obtained. The cardiac silhouette is not enlarged. Mild reticular opacities through the majority of the lungs bilaterally have improved since the prior exam. Suspected airspace opacity in the left lower lobe on the prior study has resolved. Underlying emphysema is suspected. No pneumothorax. RAD/Chest 1 View (Portable) IMPRESSION: Bilateral interstitial opacities have improved since the prior exam. Airspace disease in the left lower lobe on the prior study has resolved. Findings could represent improving pulmonary vascular congestion and/or infection. Electronically Signed: Kota Harry MD at 0:37 EDT ,
[2022-04-29] MEDS: LORazepam 0.5 MG Tablet PO (23:39)
[2022-04-29 23:56] LABS: Magnesium 2.1 mg/dL (1.6-2.6)
[2022-04-30] VITALS (9 sets, daily range): BP systolic 93–105; BP diastolic 60–69; PULSE 95–110; RESP 16–20; TEMP 36.7–37.1; O2SAT 95–100; BMI 18.1
[2022-04-30 06:22] LABS: Absolute Neutrophil Count 5.6 X10^3/uL (2.0-7.7); Basophil# 0.03 X10^3/uL; Basophil% 0.3 % (0-1); Eosinophil# 0.11 X10^3/uL; Eosinophils% 1.2 % (0-5); Hematocrit 32.7 % (37-47); Hemoglobin 10.4 g/dL (12.0-15.0); Lymphocyte % 27.8 % (19-41); Mean Corp Hgb Conc 31.8 g/dL (32-36); Mean Corpuscular Hgb 30.8 pg (27.0-32.0); Mean Corpuscular Volume 96.7 fL (81-99); Mean Platelet Vol. 10.4 fl (6.2-12.0); Monocyte# 0.94 X10^3/uL; Monocyte% 10.1 % (0-10); NRBC Flagged by Analyzer 0 % (0-5); Neutrophil # 5.58 X10^3/uL (2.7-7.7); Neutrophil % 59.6 % (47-70); Platelet Count 247 K/mm3 (150-450); RBC Distribution Width CV 14.6 % (11.6-14.6); RBC Distribution Width SD 50.7 fl (35.1-43.9); Red Blood Count 3.38 M/mm3 (4.2-5.4); White Blood Count 9.4 K/mm3 (4.4-11.0)
[2022-04-30 07:12] LABS: Anion Gap 9 (5-15); BUN 27 mg/dL (7-18); BUN/Creat Ratio 38.4 RATIO (10-20); Calcium,Total 8.6 mg/dL (8.5-10.1); Chloride 108 mmol/L (98-107); EST Glomerular Filtration Rate 90 mL/min (>60); Est Glom Filt Rate - Afr Amer 109 mL/min (>60); Estimated Creatinine Clearance 63.95 ml/min; Glucose 100 mg/dL (74-106); Sodium Level 140 mmol/L (136-145)
[2022-04-30 07:15] LABS: Bedside Glucose 87 mg/dL (74-106)
[2022-04-30] MEDS: Baclofen 10 MG Tablet PO (09:23)
[2022-04-30] MEDS: Fluticasone 0.05% 1 SPRAY NASAL.SRY 2 SPRAY NASAL (09:23)
[2022-04-30] MEDS: Aspirin 81 MG TAB.CHEW PO (09:23)
[2022-04-30] MEDS: Clopidogrel Bisulfate 75 MG Tablet PO (09:23)
[2022-04-30] MEDS: Pantoprazole Sodium 20 MG Tablet PO (09:23)
[2022-04-30] MEDS: Potassium Chloride Oral Tablet 20 MEQ 40 MEQ PO (09:23)
[2022-04-30] MEDS: Ceftriaxone 1 GM/50 ML BAG IV (09:24)
[2022-04-30] MEDS: Lidocaine 5% Patch 2 PATCH TOPICAL (09:24)
[2022-04-30] MEDS: Menthol/Lanolin/Calamine/Znox 113 GM Tube 1 APPLIC TOPICAL ×3 (09:25→21:29)
--- NOTE | 2022-04-30 10:17 | PCM.PROGNOTE ---
Subjective Subjective Patient seen and examined. She had no complaints today and had an uneventful night. Review of systems otherwise negative. He is for cardiac cath tomorrow. Objective Data Objective Data Vital Signs: Vital Signs Temp Pulse Resp BP Pulse Ox O2 Del Method O2 Flow Rate 98.0 F 98 16 99/69 99 Room Air 5 04/30/22 09:11 04/30/22 09:11 04/30/22 09:11 04/30/22 09:11 04/30/22 09:11 04/30/22 09:14 04/27/22 14:00 FiO2 98 04/26/22 15:00 Oxygen Flow Rate (L/min) 5 Oxygen Delivery Method Room Air Weight: 105 lb 13.15 oz Body Mass Index (BMI) 18.1 Intake & Output: Intake and Output for Last 24 Hours 04/28/22 04/29/22 04/30/22 23:59 23:59 23:59 Intake Total 255.5 / 405.5 760 / 1010 370 / 370 Output Total 400 / 400 Balance -144.5 / 5.5 760 / 1010 370 / 370 Lab / Micro Data Result Diagrams: 04/30/22 05:12 04/30/22 05:12 Labs: Laboratory Results - last 24 hr 04/29/22 07:40: Magnesium 2.1 04/29/22 11:06: POC Glucose 147 H 04/29/22 16:45: POC Glucose 236 H 04/29/22 21:10: POC Glucose 372 H 04/30/22 05:12: WBC 9.4, RBC 3.38 L, Hgb 10.4 L, Hct 32.7 L, MCV 96.7, MCH 30.8, MCHC 31.8 L, RDW Std Deviation 50.7 H, RDW Coeff of Tiffanie 14.6, Plt Count 247, MPV 10.4, Immature Gran % (Auto) 1.000 H, Neut % (Auto) 59.6, Lymph % (Auto) 27.8, [place] % (Auto) 10.1 H, Eos % (Auto) 1.2, Baso % (Auto) 0.3, Absolute Neuts (auto) 5.6, Absolute Lymphs (auto) 2.60, Nucleated RBC % 0 04/30/22 05:12: Sodium 140, Potassium 3.0 L, Chloride 108 H, Carbon Dioxide 23.0, Anion Gap 9, BUN 27 H, Creatinine 0.70, Estim Creat Clear Calc 63.95, Est GFR (MDRD) Af Amer 109, Est GFR (MDRD) Non-Af 90, BUN/Creatinine Ratio 38.4 H, Glucose 100, Calcium 8.6 04/30/22 06:51: POC Glucose 87 Micro: Microbiology 04/24/22 03:30 Blood Culture (Wb) - Right Wrist Blood Culture - Final No growth in 5 days. 04/24/22 02:59 Blood Culture (Wb) - Venous Blood Culture - Final No growth in 5 days. 04/24/22 04:45 Urine, Clean Catch Urine Culture - Final Presumptive E. coli 04/24/22 01:55 Stool Enteric Bacteriology - Final 04/24/22 01:55 Stool C. difficile GDH Antigen & Toxins - Final 04/24/22 01:55 Stool C. difficile DNA Amplification - Final Radiography Diagnostic Testing: Radiology Impression Chest X-Ray 04/29/22 23:35 IMPRESSION: Bilateral interstitial opacities have improved since the prior exam. Airspace disease in the left lower lobe on the prior study has resolved. Findings could represent improving pulmonary vascular congestion and/or infection. Electronically Signed: Kota Harry MD at 0:37 EDT , Physical Exam Const alert and oriented x3 HEENT normocephalic, head/scalp atraumatic and moist oral mucous membranes Eyes PERRL and EOMs intact bilaterally Neck no lymphadenopathy, supple and no JVD Lymph Lymphatic: no lymphadenopathy noted and no lymphedema noted Resp normal respiratory effort, normal air movement and clear to auscultation bilaterally Cardio regular rate, regular rhythm, S1 normal heart sound, S2 normal heart sound and no murmurs GI normal to inspection, nondistended, normoactive bowel sounds, soft to palpation, non-tender and non-distended Extremity normal capillary refill Extremity Narrative: bilateral AKA Skin General Skin Exam: no breakdown Neuro CN's II-XII intact bilaterally, no focal motor deficits, no sensory deficits noted and deep tendon reflexes 2+ bilaterally Psych thought process normal Assessment & Plan Assessment/Plan (1) NSTEMI, initial episode of care: (2) CHF (congestive heart failure): PLAN: Plan #Nonstemi doesnt have any chest pain 2D echo showed EF of 20% with RVSP of 42mmhg now off heparin drip to have cardiac cath tomorrow on aspirin, high intensity statin and plavix. #Type 2 diabetes mellitus with chronic neuropathy and retinopathy s/p bilateral AKA ISS. Accuchecks ACHS on lantus 25 units daily #Hypokalemia: K is 3 today. Will replace and trend. #GERD; on PPI #Anxiety and depression; on ativan prn. #Hypertension: BP meds held due to cardiogenic shock #Cardiogenic shock: resolved. Off pressors. #JUDIT: resolved. #UTI: on ceftriaxone. Urine culture growing E coli. blood cultures are negative. Will complete a 5 day course of ceftriaxone today. DVT prophylaxis:on lovenox Charges/Coding Visit Charges Inpatient E&M: 77527 Subs Hosp L2
[2022-04-30] MEDS: Insulin Glargine-YFGN 100 UNIT/ML Pen 25 UNIT SC (11:40)
[2022-04-30] MEDS: Insulin Lispro 100 UNIT/ML INSULN.PEN SC (11:41)
[2022-04-30] MEDS: 0.9% Saline Lock 10 ML Syringe IV ×2 (11:41→21:28)
[2022-04-30 12:06] LABS: Bedside Glucose 159 mg/dL (74-106)
--- NOTE | 2022-04-30 13:18 | PN.CARD_ITS ---
Subjective Subjective Patient is doing well from a cardiac standpoint. No significant cardiac symptoms. Objective Data Vital Signs: Vital Signs Temp Pulse Resp BP Pulse Ox O2 Del Method O2 Flow Rate 98.0 F 98 16 99/69 99 Room Air 5 04/30/22 09:11 04/30/22 09:11 04/30/22 09:11 04/30/22 09:11 04/30/22 09:11 04/30/22 09:14 04/27/22 14:00 FiO2 98 04/26/22 15:00 Oxygen Flow Rate (L/min) 5 Oxygen Delivery Method Room Air Weight: 105 lb 13.15 oz Body Mass Index (BMI) 18.1 Intake & Output: Intake and Output for Last 24 Hours 04/28/22 04/29/22 04/30/22 23:59 23:59 23:59 Intake Total 255.5 / 405.5 760 / 1010 770 / 770 Output Total 400 / 400 Balance -144.5 / 5.5 760 / 1010 770 / 770 Lab / Micro Data Result Diagrams: 04/30/22 05:12 04/30/22 05:12 Labs: Laboratory Results - last 24 hr 04/29/22 07:40: Magnesium 2.1 04/29/22 16:45: POC Glucose 236 H 04/29/22 21:10: POC Glucose 372 H 04/30/22 05:12: WBC 9.4, RBC 3.38 L, Hgb 10.4 L, Hct 32.7 L, MCV 96.7, MCH 30.8, MCHC 31.8 L, RDW Std Deviation 50.7 H, RDW Coeff of [place]iff[place] 14.6, Plt Count 247, MPV 10.4, Immature Gran % (Auto) 1.000 H, Neut % (Auto) 59.6, Lymph % (Auto) 27.8, [place] % (Auto) 10.1 H, Eos % (Auto) 1.2, Baso % (Auto) 0.3, Absolute Neuts (auto) 5.6, Absolute Lymphs (auto) 2.60, Nucleated RBC % 0 04/30/22 05:12: Sodium 140, Potassium 3.0 L, Chloride 108 H, Carbon Dioxide 23.0, Anion Gap 9, BUN 27 H, Creatinine 0.70, Estim Creat Clear Calc 63.95, Est GFR (MDRD) Af Amer 109, Est GFR (MDRD) Non-Af 90, BUN/Creatinine Ratio 38.4 H, Glucose 100, Calcium 8.6 04/30/22 06:51: POC Glucose 87 04/30/22 11:39: POC Glucose 159 H Cardiology Labs/Tests 04/29/22 07:40: Magnesium 2.1 04/30/22 05:12: WBC 9.4, RBC 3.38 L, Hgb 10.4 L, Hct 32.7 L, MCV 96.7, MCH 30.8, MCHC 31.8 L, Plt Count 247, MPV 10.4, Immature Gran % (Auto) 1.000 H, Neut % (Auto) 59.6, Lymph % (Auto) 27.8, [place] % (Auto) 10.1 H, Eos % (Auto) 1.2, Baso % (Auto) 0.3, Absolute Neuts (auto) 5.6, Nucleated RBC % 0 04/30/22 05:12: Sodium 140, Potassium 3.0 L, Chloride 108 H, Carbon Dioxide 23.0, Anion Gap 9, BUN 27 H, Creatinine 0.70, Est GFR (MDRD) Af Amer 109, Est GFR (MDRD) Non-Af 90, BUN/Creatinine Ratio 38.4 H, Glucose 100, Calcium 8.6 Rhythm: EKG: ECHO: Stress Test: Cardiac Cath: PCI: CT Surgery: Holter monitor: EPS: PPM: CXR: Chest CT Scan: Radiography Diagnostic Testing: Radiology Impression Chest X-Ray 04/29/22 23:35 IMPRESSION: Bilateral interstitial opacities have improved since the prior exam. Airspace disease in the left lower lobe on the prior study has resolved. Findings could represent improving pulmonary vascular congestion and/or infection. Electronically Signed: Kota Harry MD at 0:37 EDT , Physical Exam Const alert and no apparent distress HEENT normocephalic Eyes no scleral icterus Resp normal respiratory effort Psych mental status grossly normal Assessment & Plan Assessment/Plan (1) NSTEMI, initial episode of care: PLAN: Patient's elevated troponin and wall motion abnormalities on echo were felt to be likely related to Takotsubo cardiomyopathy. Patient did have some coronary artery disease on the angiogram in 2017. I think will be reasonable to proceed with repeat coronary angiography tomorrow. Patient initially had refused angiography but now is willing to proceed with the procedure. Patient's creatinine is stable. Patient is not on a beta-kim or MAI inhibitor as her blood pressure during this hospitalization was low and required pressor support. She can be started on low-dose beta-kim and MAI inhibitor when her blood pressure can tolerate. (2) Takotsubo syndrome: Charges/Coding Visit Charges Inpatient E&M: 77860 Init Hosp L2
--- NOTE | 2022-04-30 14:50 | NURSING ---
Pt complaining of feeling SOB. Pulse ox 100 on RA, respirations 16. Patient feeling slightly anxious and upset due to not feeling supported by family. Pt agreeable to trying breathing treatment and ativan at this time. Pt talking without getting winded.
[2022-04-30] MEDS: LORazepam 0.5 MG Tablet PO ×2 (15:00→22:47)
[2022-04-30] MEDS: Albuterol 2.5 MG/3 ML VIAL.NEB. INHALATION ×2 (15:14→23:42)
[2022-04-30 17:20] LABS: Bedside Glucose 144 mg/dL (74-106)
[2022-04-30 18:56] LABS: Bedside Glucose 146 mg/dL (74-106)
[2022-04-30] MEDS: MELATONIN 3 MG TABLET PO (21:28)
[2022-04-30] MEDS: Atorvastatin Calcium 40 MG Tablet PO (21:28)
[2022-04-30] MEDS: 0.9% Normal Saline 1,000 ML 15 ML IV (21:30)
[2022-04-30 21:56] LABS: Bedside Glucose 197 mg/dL (74-106)
[2022-05-01] VITALS (13 sets, daily range): BP systolic 88–112; BP diastolic 54–82; PULSE 93–105; RESP 15–26; TEMP 36.9–37; O2SAT 91–100; BMI 19.3
--- NOTE | 2022-05-01 05:00 | EKG12_ITS ---
Test Reason : ABNORMAL EKG Blood Pressure : / mmHG Vent. Rate : 096 BPM Atrial Rate : 096 BPM P-R Int : 138 ms QRS Dur : 088 ms QT Int : 364 ms P-R-T Axes : 049 -25 088 degrees QTc Int : 459 ms Normal sinus rhythm Anterior infarct (cited on or before 24-APR-2022) T wave abnormality, consider lateral ischemia Abnormal ECG Confirmed by TYSON BECKFORD, ONEYDA ([id number]), acquisition editor MAKENNA ROMERO ([id number]) on 05/02/2022 8:54:51 AM Referred By: MISBAH Confirmed By:ONEYDA MEHTA MD
[2022-05-01 06:27] LABS: Absolute Lymphocyte Count 2.69 X10^3/uL (0.83-4.51); Basophil# 0.04 X10^3/uL; Basophil% 0.4 % (0-1); Eosinophil# 0.11 X10^3/uL; Eosinophils% 1.1 % (0-5); Hematocrit 34.9 % (37-47); Hemoglobin 10.9 g/dL (12.0-15.0); Lymphocyte # 2.69 X10^3/ul (0.83-4.51); Lymphocyte % 27.6 % (19-41); Mean Corp Hgb Conc 31.2 g/dL (32-36); Mean Corpuscular Hgb 30.4 pg (27.0-32.0); Mean Corpuscular Volume 97.5 fL (81-99); Mean Platelet Vol. 10.7 fl (6.2-12.0); Monocyte# 0.76 X10^3/uL; Monocyte% 7.8 % (0-10); NRBC Flagged by Analyzer 0 % (0-5); Neutrophil # 5.99 X10^3/uL (2.7-7.7); Neutrophil % 61.7 % (47-70); POSITIVE MORPHOLOGY YES; Platelet Count 267 K/mm3 (150-450); RBC Distribution Width CV 14.6 % (11.6-14.6); RBC Distribution Width SD 51.4 fl (35.1-43.9); Red Blood Count 3.58 M/mm3 (4.2-5.4); White Blood Count 9.7 K/mm3 (4.4-11.0)
[2022-05-01] MEDS: 0.9% Saline Lock 10 ML Syringe IV (06:31)
[2022-05-01] MEDS: Aspirin 81 MG TAB.CHEW PO (06:31)
[2022-05-01] MEDS: Clopidogrel Bisulfate 75 MG Tablet PO (06:31)
[2022-05-01 06:51] LABS: Anion Gap 9 (5-15); BUN 20 mg/dL (7-18); BUN/Creat Ratio 27.3 RATIO (10-20); Calcium,Total 8.8 mg/dL (8.5-10.1); Chloride 107 mmol/L (98-107); Creatinine, Serum 0.73 mg/dL (0.55-1.02); EST Glomerular Filtration Rate 86 mL/min (>60); Est Glom Filt Rate - Afr Amer 104 mL/min (>60); Estimated Creatinine Clearance 65.16 ml/min; Glucose 139 mg/dL (74-106); Potassium 3.5 mmol/L (3.5-5.1); Sodium Level 139 mmol/L (136-145)
[2022-05-01 06:56] LABS: Bedside Glucose 143 mg/dL (74-106)
[2022-05-01 07:00] LABS: Differential Indicated SCAN CRITERIA MET
[2022-05-01 08:32] LABS: Reactive Lymphocyte 1+
--- NOTE | 2022-05-01 09:54 | PN.CARD_ITS ---
Subjective Subjective Patient seen and eval. Underwent cardiac catheterization today. Objective Data Vital Signs: Vital Signs Temp Pulse Resp BP Pulse Ox O2 Del Method O2 Flow Rate 98.6 F 99 18 99/67 99 Room Air 5 05/01/22 06:32 05/01/22 06:32 05/01/22 06:32 05/01/22 06:32 05/01/22 06:32 05/01/22 07:40 04/27/22 14:00 FiO2 98 04/26/22 15:00 Oxygen Flow Rate (L/min) 5 Oxygen Delivery Method Room Air Weight: 112 lb 6.972 oz Body Mass Index (BMI) 19.3 Intake & Output: Intake and Output for Last 24 Hours 04/29/22 04/30/22 05/01/22 23:59 23:59 23:59 Intake Total 760 / 1010 1170 / 1470 300 / 300 Balance 760 / 1010 1170 / 1470 300 / 300 Lab / Micro Data Result Diagrams: 05/01/22 05:45 05/01/22 05:45 Labs: Laboratory Results - last 24 hr 04/30/22 11:39: POC Glucose 159 H 04/30/22 14:45: POC Glucose 146 H 04/30/22 16:57: POC Glucose 144 H 04/30/22 21:26: POC Glucose 197 H 05/01/22 05:45: WBC 9.7, RBC 3.58 L, Hgb 10.9 L, Hct 34.9 L, MCV 97.5, MCH 30.4, MCHC 31.2 L, RDW Std Deviation 51.4 H, RDW Coeff of Tiffanie 14.6, Plt Count 267, MPV 10.7, Immature Gran % (Auto) 1.400 H, Neut % (Auto) 61.7, Lymph % (Auto) 27.6, [place] % (Auto) 7.8, Eos % (Auto) 1.1, Baso % (Auto) 0.4, Absolute Neuts (auto) 6.0, Absolute Lymphs (auto) 2.69, Nucleated RBC % 0, Reactive Lymphocytes 1+ 05/01/22 05:45: Sodium 139, Potassium 3.5, Chloride 107, Carbon Dioxide 23.0, Anion Gap 9, BUN 20 H, Creatinine 0.73, Estim Creat Clear Calc 65.16, Est GFR (MDRD) Af Amer 104, Est GFR (MDRD) Non-Af 86, BUN/Creatinine Ratio 27.3 H, Gluco se 139 H, Calcium 8.8 05/01/22 06:28: POC Glucose 143 H Cardiology Labs/Tests 05/01/22 05:45: WBC 9.7, RBC 3.58 L, Hgb 10.9 L, Hct 34.9 L, MCV 97.5, MCH 30.4, MCHC 31.2 L, Plt Count 267, MPV 10.7, Immature Gran % (Auto) 1.400 H, Neut % (Auto) 61.7, Lymph % (Auto) 27.6, [place] % (Auto) 7.8, Eos % (Auto) 1.1, Baso % (Auto) 0.4, Absolute Neuts (auto) 6.0, Nucleated RBC % 0 05/01/22 05:45: Sodium 139, Potassium 3.5, Chloride 107, Carbon Dioxide 23.0, Anion Gap 9, BUN 20 H, Creatinine 0.73, Est GFR (MDRD) Af Amer 104, Est GFR (MDRD) Non-Af 86, BUN/Creatinine Ratio 27.3 H, Glucose 139 H, Calcium 8.8 Rhythm: EKG: ECHO: Stress Test: Cardiac Cath: PCI: CT Surgery: Holter monitor: EPS: PPM: CXR: Chest CT Scan: Physical Exam Const alert and no apparent distress HEENT normocephalic Eyes no scleral icterus Resp normal respiratory effort Cardio regular rhythm Extremity Extremity Narrative: Bilateral amputee Psych mental status grossly normal Assessment & Plan Assessment/Plan (1) NSTEMI, initial episode of care: PLAN: Patient's elevated troponin and wall motion abnormalities on echo. The patient underwent cardiac catheterization today which demonstrated the following: High-grade distal left main coronary stenosis. Left anterior descending artery severely diseased and subtotally occluded in the midsegment. Left circumflex artery which is subtotally occluded Dominant right coronary artery severely diseased with long area of 60% stenosis noted proximally and distal posterolateral vessel with moderately severe disease and a high-grade long area of stenosis in the posterior descending artery. Patient is noted to have severe left ventricular systolic dysfunction estimated ejection fraction of 20 to 30%. Based on the above angiographic findings as well as left ventricular function it may be prudent to transfer this patient to a tertiary care facility for an Impella guided revascularization procedure. In the interim the patient will be transferred to the intensive care unit. Thank you for allowing me to participate in the care of your patient. Please don't hesitate to call if any issues arise.
--- NOTE | 2022-05-01 10:13 | CL.D_ITS ---
Patient Name: TONYA DANIELS Study Date: 05/01/2022 Performing: Carloz Henderson MD Ht: 64 inches 162.56 cm : 1960 Wt: 112.44 lbs 51 kg Age: 62 Gender: female BSA: 1.53 PROCEDURE(S) PERFORMED [id number]-([id number])C/COR CLINICAL PROFILE AND INDICATIONS Indications: Suspected CAD Heart Failure: NYHA Class: 2, Newly Diagnosed: Yes, Heart Failure Type: Systolic CONCLUSIONS Severe triple-vessel disease with distal left main coronary artery stenosis and severe left ventricular systolic dysfunction RECOMMENDATIONS Transfer to a tertiary care facility for high risk PCI likely with Impella guidance. DESCRIPTION OF PROCEDURE The patient arrived to the procedure lab. The risks and benefits of the procedure as well as a full description of our services here and current unavailability of surgical backup were fully explained to the patient and/or their significant other prior to the catheterization. The Timeout was completed, verifying the correct patient and procedure. The patient's procedural site was prepped and draped in the usual fashion. Local anesthetic was given subcutaneously to left radial region with Lidocaine 2%. Using a modified Seldinger technique, arterial access was obtained via the left radial artery, a 6Fr sheath was inserted. Left Coronary Artery selective angiography was performed in multiple views using a 5 Fr. 4.0 [place] catheter. Right Coronary Artery selective angiography was then performed in multiple views using a 5 Fr. 3DRC (Nomi) catheter.The arterial sheath was pulled and a TR Band was applied for hemostasis CORONARY ANGIOGRAPHY DOMINANCE: Right Dominant LEFT HEART ASSESSMENT Left Ventricular Ejection Fraction: by LV Gram 20 % Global Hypokinesis - Severe Depressed Left Ventricular systolic function LEFT MAIN: Mild calcification noted. With severe distal left main coronary artery stenosis LEFT ANTERIOR DESCENDING ARTERY: Severely diseased in the midsegment and subtotally occluded CIRCUMFLEX ARTERY: OSTIAL CIRC: Totally occluded RIGHT CORONARY ARTERY: Severe coronary artery disease with moderate 60% proximal long stenosis and distal 90% long posterior descending artery stenosis and moderate posterolateral stenosis VALVE FINDINGS: Normal Aortic Valve function COMPLICATIONS No Complications PROCEDURE MEDICATIONS Fentanyl 25 mcg IV Versed 0.5 mg IV Fentanyl 25 mcg IV Versed 0.5 mg IV Oxygen: 2 L/min via nasal cannula Heparin given IA 05/01/2022 09:33:21 SUMMARY OF HEMODYNAMIC DATA Time AIR REST ECG 09:09:14 AO 117/62 (78) SA 09:32:58 AO 91/57 (74) 09:35:55 10:08:02 Signed By Carloz Henderson MD On 05/01/2022 10:12:13 Carloz Henderson MD
[2022-05-01] MEDS: Fluticasone 0.05% 1 SPRAY NASAL.SRY 2 SPRAY NASAL (11:00)
[2022-05-01] MEDS: Menthol/Lanolin/Calamine/Znox 113 GM Tube 1 APPLIC TOPICAL (11:00)
[2022-05-01] MEDS: Insulin Glargine-YFGN 100 UNIT/ML Pen 25 UNIT SC (11:00)
[2022-05-01] MEDS: Pantoprazole Sodium 20 MG Tablet PO (11:01)
[2022-05-01] MEDS: Baclofen 10 MG Tablet PO (11:01)
[2022-05-01 11:25] LABS: Bedside Glucose 93 mg/dL (74-106)
--- NOTE | 2022-05-01 13:22 | PN_ITS ---
Subjective Subjective Patient seen and examined this morning. She had no complaints and felt well. Her grandson was by her bedside. She was for cardiac cath today. Review of systems otherwise negative. Objective Data Objective Data Vital Signs: Vital Signs Temp Pulse Resp BP Pulse Ox O2 Del Method O2 Flow Rate 98.6 F 95 20 H 94/64 91 Room Air 5 05/01/22 06:32 05/01/22 12:00 05/01/22 12:00 05/01/22 12:00 05/01/22 12:00 05/01/22 12:00 04/27/22 14:00 FiO2 98 04/26/22 15:00 Oxygen Flow Rate (L/min) 5 Oxygen Delivery Method Room Air Weight: 112 lb 6.972 oz Body Mass Index (BMI) 19.3 Intake & Output: Intake and Output for Last 24 Hours 04/29/22 04/30/22 05/01/22 23:59 23:59 23:59 Intake Total 760 / 1010 1170 / 1470 300 / 300 Balance 760 / 1010 1170 / 1470 300 / 300 Lab / Micro Data Result Diagrams: 05/01/22 05:45 05/01/22 05:45 Labs: Laboratory Results - last 24 hr 04/30/22 14:45: POC Glucose 146 H 04/30/22 16:57: POC Glucose 144 H 04/30/22 21:26: POC Glucose 197 H 05/01/22 05:45: WBC 9.7, RBC 3.58 L, Hgb 10.9 L, Hct 34.9 L, MCV 97.5, MCH 30.4, MCHC 31.2 L, RDW Std Deviation 51.4 H, RDW Coeff of Tiffanie 14.6, Plt Count 267, MPV 10.7, Immature Gran % (Auto) 1.400 H, Neut % (Auto) 61.7, Lymph % (Auto) 27.6, [place] % (Auto) 7.8, Eos % (Auto) 1.1, Baso % (Auto) 0.4, Absolute Neuts (auto) 6.0, Absolute Lymphs (auto) 2.69, Nucleated RBC % 0, Reactive Lymphocytes 1+ 05/01/22 05:45: Sodium 139, Potassium 3.5, Chloride 107, Carbon Dioxide 23.0, Anion Gap 9, BUN 20 H, Creatinine 0.73, Estim Creat Clear Calc 65.16, Est GFR (MDRD) Af Amer 104, Est GFR (MDRD) Non-Af 86, BUN/Creatinine Ratio 27.3 H, Glucose 139 H, Calcium 8.8 05/01/22 06:28: POC Glucose 143 H 05/01/22 11:05: POC Glucose 93 Micro: Microbiology 04/24/22 03:30 Blood Culture (Wb) - Right Wrist Blood Culture - Final No growth in 5 days. 04/24/22 02:59 Blood Culture (Wb) - Venous Blood Culture - Final No growth in 5 days. 04/24/22 04:45 Urine, Clean Catch Urine Culture - Final Presumptive E. coli 04/24/22 01:55 Stool Enteric Bacteriology - Final 04/24/22 01:55 Stool C. difficile GDH Antigen & Toxins - Final 04/24/22 01:55 Stool C. difficile DNA Amplification - Final Physical Exam Const alert and oriented x3 General Appearance: cooperative HEENT normocephalic, head/scalp atraumatic and moist oral mucous membranes Eyes PERRL and EOMs intact bilaterally Neck no lymphadenopathy, supple and no JVD Lymph Lymphatic: no lymphadenopathy noted and no lymphedema noted Resp normal respiratory effort, normal air movement and clear to auscultation bilaterally Cardio regular rate, regular rhythm, S1 normal heart sound, S2 normal heart sound and no murmurs GI normal to inspection, nondistended, normoactive bowel sounds, soft to palpation, non-tender and non-distended Extremity normal capillary refill Extremity Narrative: bilateral AKA Skin General Skin Exam: no breakdown Neuro CN's II-XII intact bilaterally, no focal motor deficits, no sensory deficits noted and deep tendon reflexes 2+ bilaterally Psych thought process normal Assessment & Plan Assessment/Plan (1) NSTEMI, initial episode of care: (2) CHF (congestive heart failure): PLAN: Plan #Nonstemi * doesnt have any chest pain * 2D echo showed EF of 20% with RVSP of 42mmhg * now off heparin drip * Cardiac cath showed severe triple-vessel disease with distal left main coronary artery stenosis and severe left ventricular systolic dysfunction * on aspirin, high intensity statin and plavix. * Cardiology recommends transfer to tertiary care center. 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 Accuchecks ACHS * on lantus 25 units daily * #Hypokalemia: Resolved. Potassium is 3.5. Will replace and trend. #GERD; on PPI #Anxiety and depression; on ativan prn. #Hypertension: BP meds held due to cardiogenic shock #Cardiogenic shock: resolved. Off pressors. #JUDIT: resolved. #UTI: on ceftriaxone. Urine culture growing E coli. blood cultures are negative. antibiotics dc'd DVT prophylaxis:on lovenox Charges/Coding Visit Charges Inpatient E&M: 64327 Subs Hosp L2
--- NOTE | 2022-05-01 17:12 | DS.PCM_ITS ---
Providers Date of Admission: 04/24/22 Date of Discharge: 05/01/22 Primary Care Physician: Chloé Mehta, ARTURO Consultations 04/24/22 22:49 Consult: Cardiology Routine Consulting Provider: Carloz Henderson Reason for Consult: Chest pain, NSTEMI. EMERGENT Consult: No MD Notified: Yes Date Notified: 04/24/22 Time Notified: 22:49 Method of Notification: Verbal Reason For Visit: GASTROENTERITIS, HYPOTENSION Diagnosis Discharge Diagnosis (1) NSTEMI, initial episode of care: Status: Acute Code(s): I21.4 - Non-ST elevation (NSTEMI) myocardial infarction (2) CHF (congestive heart failure): Status: Acute Code(s): I50.9 - Heart failure, unspecified Plan #Nonstemi * doesnt have any chest pain * 2D echo showed EF of 20% with RVSP of 42mmhg * now off heparin drip * Cardiac cath showed severe triple-vessel disease with distal left main coronary artery stenosis and severe left ventricular systolic dysfunction * on aspirin, high intensity statin and plavix. * Cardiology recommends transfer to tertiary care center. 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 Accuchecks ACHS * on lantus 25 units daily * #Hypokalemia: Resolved. Potassium is 3.5. Will replace and trend. #GERD; on PPI #Anxiety and depression; on ativan prn. #Hypertension: BP meds held due to cardiogenic shock #Cardiogenic shock: resolved. Off pressors. #JUDIT: resolved. #UTI: on ceftriaxone. Urine culture growing E coli. blood cultures are negative. antibiotics dc'd DVT prophylaxis:on lovenox Medications at Discharge Home Medications amitriptyline 50 mg tablet 50 mg PO QHS 06/12/16 baclofen 10 mg tablet 10 mg PO DAILY 06/12/16 clopidogrel 75 mg tablet 75 mg PO DAILY 06/12/16 fluticasone propionate 50 mcg/actuation nasal spray,suspension 2 spray DAILY 06/12/16 lidocaine 5 % topical ointment 1 applicatio topical DAILY PRN PRN Pain 06/12/16 metoprolol tartrate 25 mg tablet 25 mg PO BID 06/12/16 omeprazole 20 mg capsule,delayed release 20 mg PO DAILY 06/12/16 polyethylene glycol 8000(bulk) 100 % powder 255 g miscellaneous BID PRN PRN Constipation 06/12/16 zolpidem 5 mg tablet 5 mg PO QHS PRN PRN Insomnia 06/12/16 aspirin 81 mg chewable tablet 81 mg PO DAILY@0800 06/14/16 atorvastatin 40 mg tablet 40 mg PO QHS ##30 06/14/16 insulin aspart U-100 100 unit/mL (3 mL) subcutaneous pen (Novolog FlexPen U-100 Insulin aspart) 10 units (0.1 mL) subcut TIDAC 30 days 06/14/16 insulin detemir U-100 100 unit/mL (3 mL) subcutaneous pen (Levemir FlexTouch U- 100 Insulin) 50 units (0.5 mL) subcut BID 30 days 06/14/16 lisinopril 5 mg tablet 5 mg PO DAILY ##30 06/14/16 pen needle, diabetic, safety 30 gauge x 1/3 ##1 09/18/18 sulfamethoxazole 800 mg-trimethoprim 160 mg tablet 1 tab PO BID #6 tabs 09/18/18 hydrocodone-acetaminophen 5-325mg 5mg-325mg 1 tab PO Q6H PRN PRN Pain 3 days #12 TABLETS 09/05/21 Hospital Course Operations None Procedures Cardiac catheterization Summary of Care Provided Minutes Spent on Discharge: 55 Hospital Course: Patient is a 62-year-old female with a past medical history as outlined including diabetic neuropathy s/p bilateral AKA, hypertension, hyperlipidemia and PAD as well as nonobstructive CAD and insulin-dependent diabetes mellitus. She was admitted through the ED on 04/24/2022 with a complaint of persistent diarrhea with assisted nausea but no vomiting. She was extremely lethargic and fatigued. On admission she was hypotensive with blood pressure of 65/45. Lactic acid was 2 and chest x-ray showed no acute cardiopulmonary findings. She was initially admitted and managed for acute encephalopathy and hypotension due to persistent diarrhea and JUDIT. She was admitted to the ICU on account of the hypotension and hydrated with fluids. Hypotension gradually resolved and diarrhea also stopped. Hospital course was complicated by patient developing chest pain. EKG showed ST depression in V3 to 6 and initial troponin was markedly elevated at 3091. He was given sublingual nitroglycerin. Cardiology was consulted. She had 2D echo which showed EF of 20% with RSVP of 42 mmHg. She was placed on heparin drip. She was eventually transitioned off of heparin drip. She was transferred out of the ICU. Patient was initially refusing a cardiac cath but subsequently agreed to have a cardiac cath. She had cardiac cath on 05/02/2022 which showed severe triple-vessel disease with distal left main coronary artery stenosis and severe left ventricular systolic dysfunction. Patient was admitted to the ICU after the cardiac cath for closer monitoring and decision was made to transfer to a tertiary facility for high risk PCI. Patient was transferred to [facility] on . Patient seen and examined prior to discharge. She had no complaints and review of symptoms otherwise negative. Labs and vitals reviewed. Home medication rev iewed and reconciled. Physical Exam Const alert, oriented x3 and no apparent distress General Appearance: cooperative, comfortable and well kempt Orientation / Consciousness: awake HEENT normocephalic, head/scalp atraumatic, hearing grossly normal bilaterally and moist oral mucous membranes Mouth: oral and palatal mucosa normal Eyes PERRL and EOMs intact bilaterally Neck no lymphadenopathy, supple and no JVD Lymph Lymphatic: no lymphadenopathy noted and no lymphedema noted Resp normal respiratory effort, normal air movement, no use of accessory muscles and clear to auscultation bilaterally Cardio regular rate, regular rhythm, S1 normal heart sound, S2 normal heart sound and no murmurs GI normal to inspection, nondistended, normoactive bowel sounds, soft to palpation, non-tender and non-distended Extremity Extremity Narrative: bilateral AKA Skin no rashes or lesions noted General Skin Exam: no breakdown Neuro oriented x3, CN's II-XII intact bilaterally, moves all extremities, no focal motor deficits, no sensory deficits noted and deep tendon reflexes 2+ bilaterally Sensorium / Orientation: awake Psych thought process normal Weight / BMI Weight Weight: 112 lb 6.972 oz Body Mass Index (BMI) 19.3 ABG / Lab / Microbiology Data Result Diagrams: 05/01/22 05:45 05/01/22 05:45 Laboratory: Laboratory Results - last 24 hr 04/30/22 14:45: POC Glucose 146 H 04/30/22 16:57: POC Glucose 144 H 04/30/22 21:26: POC Glucose 197 H 05/01/22 05:45: WBC 9.7, RBC 3.58 L, Hgb 10.9 L, Hct 34.9 L, MCV 97.5, MCH 30.4, MCHC 31.2 L, RDW Std Deviation 51.4 H, RDW Coeff of [place]iff[place] 14.6, Plt Count 267, MPV 10.7, Immature Gran % (Auto) 1.400 H, Neut % (Auto) 61.7, Lymph % (Auto) 27.6, [place] % (Auto) 7.8, Eos % (Auto) 1.1, Baso % (Auto) 0.4, Absolute Neuts (auto) 6.0, Absolute Lymphs (auto) 2.69, Nucleated RBC % 0, Reactive Lymphocytes 1+ 05/01/22 05:45: Sodium 139, Potassium 3.5, Chloride 107, Carbon Dioxide 23.0, Anion Gap 9, BUN 20 H, Creatinine 0.73, Estim Creat Clear Calc 65.16, Est GFR (MDRD) Af Amer 104, Est GFR (MDRD) Non-Af 86, BUN/Creatinine Ratio 27.3 H, Glucose 139 H, Calcium 8.8 05/01/22 06:28: POC Glucose 143 H 05/01/22 11:05: POC Glucose 93 Microbiology: Microbiology 04/24/22 03:30 Blood Culture (Wb) - Right Wrist Blood Culture - Final No growth in 5 days. 04/24/22 02:59 Blood Culture (Wb) - Venous Blood Culture - Final No growth in 5 days. 04/24/22 04:45 Urine, Clean Catch Urine Culture - Final Presumptive E. coli 04/24/22 01:55 Stool Enteric Bacteriology - Final 04/24/22 01:55 Stool C. difficile GDH Antigen & Toxins - Final 04/24/22 01:55 Stool C. difficile DNA Amplification - Final D/C Instructions Discharge Diet: Low fat / Low cholesterol Meaningful Use Info Meaningful Use Diagnoses (Choose all that apply): AMI AMI/Post PCI/Angioplasty Aspirin given w/in 24hrs of arrival?: Yes ASA at discharge?: No Reason ASA not ordered:: Allergy (Transferred to tertiary facility) Antiplatelet Therapy at Discharge:: No Reason Antiplatelet Therapy not ordered:: Transferred to tertiary facility Statins at discharge?: No Reason statins not ordered:: Allergy (Transfer to tertiary facility) Omari/ARB at discharge?: No Reason Omari/ARB not ordered:: Not indicated (Transfer to tertiary facility) Beta Asim at discharge?: No Reason Beta Asim not ordered:: Allergy (Transferred to tertiary facility) Done w/ Acute AK measure.: Yes Documented LVEF (%): 20 Discharge Plan Admission Admit Date/Time: 04/24/22 04:40 Primary Reason for Your Visit: nonstemi, diarrhea Attending Provider: Madie Cordova Primary Care Provider: Chloé Mehta LENS MAKER Consulting Providers: Marce Ybarra ; Carloz Henderson ; Ángel Posada Discharge Orders/Prescriptions Prescriptions: No Action clopidogrel 75 MG tablet 75 mg PO DAILY amitriptyline 50 MG tablet 50 mg PO QHS baclofen 10 MG tablet 10 mg PO DAILY omeprazole 20 MG capsule 20 mg PO DAILY zolpidem 5 MG tablet 5 mg PO QHS PRN PRN (Reason: Insomnia) fluticasone propionate 1 SPRAY spray,suspension 2 spray NASAL DAILY metoprolol tartrate 25 MG tablet 25 mg PO BID polyethylene glycol 8000(bulk) 500 GM powder 255 g miscellaneous BID PRN PRN (Reason: Constipation) lidocaine 35 GM ointment 1 applicatio topical DAILY PRN PRN (Reason: Pain) atorvastatin 40 MG tablet 40 mg PO QHS Qty: 30 0RF aspirin 81 MG tablet,chewable 81 mg PO DAILY@0800 0RF lisinopril 5 MG tablet 5 mg PO DAILY Qty: 30 0RF insulin aspart U-100 [Novolog FlexPen U-100 Insulin] 100 UNITS/ML insulin pen 10 units subcut TIDAC 30 Days 0RF insulin detemir U-100 [Levemir FlexTouch U-100 Insuln] 100 UNITS/ML insulin pen 50 units subcut BID 30 Days 0RF (DME) pen needle, diabetic, safety 1 EACH needle 1 ea MISCELL. UD Qty: 1 0RF sulfamethoxazole-trimethoprim 1 TABLET tablet 1 tab PO BID Qty: 6 0RF hydrocodone-acetaminophen [hydrocodone-acetaminophen] 1 TABLET tablet 1 tab PO Q6H PRN PRN (Reason: Pain) 3 Days Qty: 12 0RF Referrals / Follow Up: Chloé Mehta LENS MAKER, LENS MAKER-C [Primary Care Provider] - Disposition Disposition (needs filled in before D/C Order can be placed): Acute Care Hospital Charges/Coding Visit Charges Inpatient E&M: 85198 Disch Hosp >30min
--- NOTE | 2022-05-02 09:58 | CASEMGMT ---
Social Work Telephone call to Kimberli Cabello. This licensed master social worker updated Kimberli on patient transfer to [facility]. Vanda Mejía MSW, JAMIE-S
== END 2022-05-01 17:15 | disposition short-term general hospital (02) | DRG 192 ==
LOC: ED 04:33 → PCU 05:37 → ICU 04-26 03:17 → PCU 04-29 07:24 → ICU 05-01 10:25
PROVIDERS: Family Medicine; Hospitalist; Internal Medicine; Admitting Provider Family Medicine; Emergency Provider Emergency Medicine; PCP Nurse Practitioner Adult Health; Visit Provider Student in an Organized Health Care Education/Training Program
DX: I95.9 Hypotension, unspecified (principal); R57.0 Cardiogenic shock; I21.4 Non-ST elevation (NSTEMI) myocardial infarction; G93.41 Metabolic encephalopathy; I50.20 Unspecified systolic (congestive) heart failure; E11.319 Type 2 diabetes mellitus with unspecified diabetic retinopathy without macular edema; N39.0 Urinary tract infection, site not specified; E11.40 Type 2 diabetes mellitus with diabetic neuropathy, unspecified; B96.20 Unspecified Escherichia coli [E. coli] as the cause of diseases classified elsewhere; I11.0 Hypertensive heart disease with heart failure; N17.9 Acute kidney failure, unspecified; E11.51 Type 2 diabetes mellitus with diabetic peripheral angiopathy without gangrene; Z79.4 Long term (current) use of insulin; Z89.611 Acquired absence of right leg above knee; Z89.612 Acquired absence of left leg above knee; K52.9 Noninfective gastroenteritis and colitis, unspecified; D53.9 Nutritional anemia, unspecified; E78.00 Pure hypercholesterolemia, unspecified; I25.10 Atherosclerotic heart disease of native coronary artery without angina pectoris; K21.9 Gastro-esophageal reflux disease without esophagitis; E87.6 Hypokalemia; F41.9 Anxiety disorder, unspecified; E86.0 Dehydration; Z20.822 Contact with and (suspected) exposure to COVID-19; G89.4 Chronic pain syndrome; F32.A Depression, unspecified; Z79.82 Long term (current) use of aspirin; Z79.02 Long term (current) use of antithrombotics/antiplatelets; Z87.891 Personal history of nicotine dependence; Z86.19 Personal history of other infectious and parasitic diseases
CPT/HCPCS: 36415; 71045; 80048; 80053; 81001; 82962; 83605; 83735; 84100; 84484; 85025; 85610; 85730; 87040; 87086; 87088; 87186; 87493; 87506; 87635; 93005; 93306; 93454; 94640; 94668; 94762; 97110; 97162; 97165; 97535; 97802; 97803; 99152; 99153; 99252; 99285; C1894; J7030; J7050; J7120; A4216; C1769; G0463; J1940; J2405; Q9967; U0003; U0005